=== PATIENT | male | born 1935 | race Caucasian/White ===

== ENCOUNTER 2016-06-09 09:15 | Inpatient (IN) | payer OTHER ==
[~2016-06-09] VITALS: Ht 180.3 cm; Wt 70.2 kg
[~2016-06-09 09:15] MED LIST: ACET500C5 PO; ADV25050 INH; ALBU8.5H3 IH; FER325 PO; FLUT16SP17 NASAL; FURO20TA3 PO; IPRA3AMP HHN; LEVO150T67 PO; PANT40TA4 PO; TRIA1CAP PO
[2016-06-09] MEDS ORDERED: SODIUM CHLORIDE 0.9% 1L BAG IV* STA (09:25)
[2016-06-09] MEDS ORDERED: CEFEPIME 2GM/50 ML (PMX) 50 ML IVPB STA (09:25)
[2016-06-09] MEDS ORDERED: ACETAMINOPHEN 325 MG TAB PO STA (09:25)
[2016-06-09] MEDS ORDERED: VANCOMYCIN 1 GM (PMX) 250 ML IVPB ONE (09:30)
[2016-06-09 10:10] LABS: BASOPHIL # 0.1 10^3/ul (0.0-0.1); EOSINOPHILS % 0.1 % (0.0-7.0); HEMATOCRIT 34.3 % (42.0-52.0); HEMOGLOBIN 10.8 g/dl (14.0-18.0); LYMPHOCYTES # 1.9 10^3/ul (0.8-2.9); LYMPHOCYTES % 20.7 % (15.0-51.0); MEAN CORPUSCULAR HEMOGLOBIN 25.9 pg (29.0-33.0); MEAN CORPUSCULAR HGB CONC 31.5 g/dl (32.0-37.0); MEAN CORPUSCULAR VOLUME 82.3 fl (82.0-101.0); MEAN PLATELET VOLUME 10.9 fl (7.4-10.4); MONOCYTE # 1.4 10^3/ul (0.3-0.9); MONOCYTES % 15.8 % (0.0-11.0); NEUTROPHIL # 5.6 10^3/ul (1.6-7.5); NEUTROPHILS % 62.4 % (39.0-77.0); PLATELET COUNT 75 10^3/UL (140-440); RED BLOOD COUNT 4.17 10^6/ul (4.70-6.10); RED CELL DISTRIBUTION WIDTH 18.6 % (11.5-14.5)
[2016-06-09] MEDS ORDERED: ALBU8.5H3 INH (10:10)
[2016-06-09 10:13] LABS: CONDITION 1; LH ANALYZER COMMENTS 1; SUSPECT 1
[2016-06-09 10:14] LABS: INR 1.24; PROTIME 15.7 Sec (12.2-14.2); PT RATIO 1.2
[2016-06-09 10:15] LABS: PARTIAL THROMBOPLASTIN TIME 32.7 Sec (25.0-35.0)
[2016-06-09 10:17] LABS: ALBUMIN 3.7 g/dl (3.3-4.9); POTASSIUM 5.3 mmol/L (3.5-5.1)
[2016-06-09 10:19] LABS: BILIRUBIN,INDIRECT 0.6 mg/dl (0-1.1); BILIRUBIN,TOTAL 0.6 mg/dl (0.2-1.3); CREATININE 0.69 mg/dl (0.61-1.24)
[2016-06-09 10:20] LABS: ALBUMIN/GLOBULIN RATIO 0.66; CALCIUM 8.5 mg/dl (8.4-10.2); TOTAL PROTEIN 9.3 g/dl (6.1-8.1)
--- NOTE | 2016-06-09 10:25 | RADRPT ---
PROCEDURE: XR Chest. CLINICAL INDICATION: Chest pain TECHNIQUE: Single frontal view of the chest. COMPARISON: 10/17/2015 chest radiograph. FINDINGS: Peripheral predominant coarse interstitial opacities compatible with pulmonary fibrosis appear mildl y increased. Mildly increased infiltration in the left infrahilar region may represent superimposed pneumonia. No pleural effusion or pneumothorax. The cardiomediastinal silhouette is unremarkable. No acute osseous abnormalities. Vascular calcifications of the aorta are present compatible with atherosclerosis. IMPRESSION: Findings of pulmonary fibrosis are mildly increased. Mildly increased left infrahilar infiltration may be secondary to pneumonia or aspiration. RPTAT: AADD .Edouard Manzanares MD, MD Date Time Electronically viewed and signed by .Edouard Manzanares MD, on 06/09/2016 10:24 .B/
[2016-06-09 10:30] LABS: TROPONIN-I 0.024 ng/ml (0.00-0.12)
[2016-06-09 11:12] LABS: ADD UMIC YES; URINE BILIRUBIN (Dip) NEGATIVE (NEGATIVE); URINE BLOOD (Dip) TRACE (NEGATIVE); URINE COLOR YELLOW (YELLOW); URINE GLUCOSE (Dip) NEGATIVE (NEGATIVE); URINE KETONES (Dip) NEGATIVE (NEGATIVE); URINE LEUKOCYTE ESTERASE (Dip) NEGATIVE (NEGATIVE); URINE NITRITE (Dip) NEGATIVE (NEGATIVE); URINE TOTAL PROTEIN (Dip) TRACE (NEGATIVE); URINE UROBILINOGEN (Dip) 2.0 E.U./dL (0.1-1.0)
[2016-06-09 11:20] LABS: URINE RBCS 0-2 /HPF (0)
[2016-06-09] MEDS ORDERED: ACETAMINOPHEN 325 MG TAB PO PRN ×2 (13:00→14:30)
[2016-06-09] MEDS ORDERED: ONDANSETRON 4 MG INJ IV PRN ×2 (13:00→14:30)
--- NOTE | 2016-06-09 13:39 | ERA ---
ER Documentation Chief Complaint Date/Time DATE: 06/09/16 TIME: 13:36 Chief Complaint flu like symptoms x 8 days HPI Patient is an 80-year-old male with COPD on home oxygen who presents with sore throat and cough. He has productive phlegm with his cough as well. He has had 8 days of sore throat for 2 days of cough. He has had no antibiotics as of yet. His primary doctor is Dr. Tremayne Alejandro. The symptoms are constant. ROS All systems reviewed and are negative except as per history of present illness. Medications Home Meds Active Scripts Acetaminophen* (Tylophen*) 500 Mg Capsule, 1 CAP PO Q6H Y for PAIN AND OR ELEVATED TEMP, #20 CAP Prov:CLARITA FUENTES DO 01/14/16 Pantoprazole* (Pantoprazole*) 40 Mg Tablet.dr, 40 MG PO DAILY@06 for 30 Days, 3 Refills Prov:JUANITA KULKARNI 10/19/15 Salmeterol Xinaf/Fluticasone* (Advair*) 250-50 Diskus Inhaler, 1 INH INH BID, # 1 3 Refills Prov:JUANITA KULKARNI 10/19/15 Ipratropium-Albuterol (Ipratropium-Albuterol) 0.5-3 Mg/3 Ml Ampul.neb, 3 ML HHN Q8H RESP THERAPY for 30 Days Prov:JUANITA KULKARNI 10/19/15 Reported Medications Albuterol Sulfate* (Proair HFA*) 8.5 Gm Hfa.aer.ad, 2 PUFF INH Q4H Y for WHEEZING AND SOB, #1 INHALER 06/09/16 Fluticasone Propionate* (Fluticasone Propionate* Nasal) 50 Mcg/[place] - 16 Gm [place].susp, 1 SPRAY NASAL DAILY Y for PRN, #1 BOTTLE TO EACH NOSTRIL 01/14/16 Furosemide* (Furosemide*) 20 Mg Tablet, 20 MG PO DAILY, #60 TAB 01/14/16 Triamterene-HCTZ* (Triamterene-HCTZ*) 37.5 - 25 Mg Capsule, 1 CAP PO DAILY, CAP 01/14/16 Levothyroxine Sodium* (Levothyroxine Sodium*) 150 Mcg Tablet, 150 MCG PO BEFORE BREAKFAST, #30 TAB 01/14/16 Discontinued Reported Medications Ferrous Sulfate* (Ferrous Sulfate*) 325 Mg Tabec, 325 MG PO BID, TAB 01/14/16 Allergies Allergies: Coded Allergies: No Known Allergy (Verified , 06/09/16) PMhx/Soc History of Surgery: No Anesthesia Reaction: No Hx 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 Disorder: No Hx Respiratory Disorders: Yes (asthma, copd, THROID PROBLEMS) Hx Cardiac Disorders: No Hx Psychiatric Problems: No Hx Miscellaneous Medical Probl: No Hx Alcohol Use: No Hx Substance Use: No Hx Tobacco Use: No Smoking Status: Never smoker FmHx Family History: diabetes Physical Exam Vitals Vital Signs Date Time Temp Pulse Resp B/P Pulse Ox O2 Delivery O2 Flow Rate FiO2 06/09/16 12:52 80 17 98/64 100 Mask 5.0 06/09/16 10:00 84 19 102/65 100 Non Rebreather 10.0 06/09/16 09:30 Nasal Cannula 3 06/09/16 09:22 101.2 106 24 89/55 63 Physical Exam Const: Moderate distress secondary to shortness of breath Head: Atraumatic Eyes: Normal Conjunctiva ENT: Normal External Ears, Nose and Mouth. Neck: Full range of motion..~ No meningismus. Resp: Decreased breath sounds bilaterally Cardio: Regular rate and rhythm, no murmurs Abd: Soft, non tender, non distended. Normal bowel sounds Skin: Pale Back: No midline or flank tenderness Ext: No cyanosis, or edema Neur: Awake and alert Psych: Normal Mood and Affect Result Diagram: 06/09/16 0945 06/09/16 0945 Results 24 hrs Laboratory Tests Test 06/09/16 09:45 06/09/16 11:00 06/09/16 11:25 Activated Partial Thromboplast Time 32.7Sec Alanine Aminotransferase (ALT/SGPT) 13IU/L Albumin 3.7g/dl Albumin/Globulin Ratio 0.66 Alkaline Phosphatase 148IU/L Anion Gap 14 Aspartate Amino Transf (AST/SGOT) 27IU/L Basophils # 0.110^3/ul Basophils % 1.0% Blood Morphology Comment Blood Urea Nitrogen 13mg/dl Calcium Level 8.5mg/dl Carbon Dioxide Level 37mmol/L Chloride Level 89mmol/L Creatinine 0.69mg/dl Direct Bilirubin 0.00mg/dl Eosinophils # 0.010^3/ul Eosinophils % 0.1% Globulin 5.60g/dl Glucose Level 103mg/dl Hematocrit 34.3% Hemoglobin 10.8g/dl INR International Normalized Ratio 1.24 Indirect Bilirubin 0.6mg/dl Lactic Acid Level 1.6mmol/L 0.6mmol/L Lymphocytes # 1.910^3/ul Lymphocytes % 20.7% Mean Corpuscular Hemoglobin 25.9pg Mean Corpuscular Hemoglobin Concent 31.5g/dl Mean Corpuscular Volume 82.3fl Mean Platelet Volume 10.9fl Monocytes # 1.410^3/ul Monocytes % 15.8% Neutrophils # 5.610^3/ul Neutrophils % 62.4% Nucleated Red Blood Cells # 0.010^3/ul Nucleated Red Blood Cells % 0.0/100WBC Platelet Count 7510^3/UL Potassium Level 5.3mmol/L Prothrombin Time 15.7Sec Prothrombin Time Ratio 1.2 Red Blood Count 4.1710^6/ul Red Cell Distribution Width 18.6% Sodium Level 135mmol/L Total Bilirubin 0.6mg/dl Total Protein 9.3g/dl Troponin I 0.024ng/ml White Blood Count 9.010^3/ul Urine Bilirubin NEGATIVE Urine Clarity CLEAR Urine Color YELLOW Urine Glucose NEGATIVE% Urine Hemoglobin TRACE Urine Ketones NEGATIVE Urine Leukocyte Esterase NEGATIVE Urine Microscopic RBC 0-2/HPF Urine Microscopic WBC NONE SEEN/HPF Urine Nitrite NEGATIVE Urine Specific [place] 1.015 Urine Total Protein TRACE Urine Urobilinogen 2.0 E.U./dL Urine pH 7.0 Current Medications Medications (Trade) Dose Ordered Sig/Jose Daniel Route PRN Reason Start Time Stop Time Status Last Admin Dose Admin Sodium Chloride (NS) 2,170 ml BOLUS OVER 2 HOURS STAT IV* 06/09/16 09:25 06/09/16 09:27 DC 06/09/16 10:01 Acetaminophen 650 mg 650 mg ONCE STAT PO 06/09/16 09:25 06/09/16 09:27 DC 06/09/16 10:10 Cefepime HCl 50 ml @ 100 mls/hr ONCE STAT IVPB 06/09/16 09:25 06/09/16 09:54 DC 06/09/16 10:00 Vancomycin HCl (Vancocin) 250 ml @ 125 mls/hr ONCE ONCE IVPB 06/09/16 09:30 06/09/16 11:29 DC 06/09/16 10:37 Ondansetron HCl (Zofran Inj) 4 mg BRIDGE ORDER PRN IV NAUSEA AND/OR VOMITING 06/09/16 13:00 06/10/16 12:59 Acetaminophen (Tylenol Tab) 650 mg ER BRIDGE PRN PO MILD PAIN/FEVER 06/09/16 13:00 06/10/16 12:59 Procedures/MDM Chest x-ray shows pneumonia per radiology. CT scan of the abdomen and pelvis is pending at this time. EKG read by me: Rate/Rhythm: Regular rate and rhythm at a rate of 90 Intervals: Normal Impression: Flipped T waves Admit MDM: Patient's infectious symptoms have not stabilized and the patient is at risk of rapid decompensation. The patient will be admitted for careful hydration, antibiotic therapy, and infectious source control. Severe Sepsis criteria: Infectious source: Pneumonia End organ damage indicated by: Hypoxia Sepsis Management: Time of recognition of sepsis: Upon arrival Within 3 hours of recognition: Blood cultures x 2 before broad-spectrum antibiotics: Yes 30 ml/kg NS bolus Completed Initial lactate 1.6 Repeat lactate 0.6 Time of recognition of septic shock: No septic shock Septic Shock Assessment: Any lactic acid > 4.0 No Persistent hypotension (SBP < 90 or 40 mmHg drop, MAP < 65) despite 30 mL/kg IV fluid bolus No Volume Re-assessment for Septic Shock (post 30 ml/kg bolus): No signs of septic shock at this time Persistent Hypotension Treatment: Comfort care No Central line Not Required Vasopressor started Not required I considered further perfusion assessment with CVP measurement, SCVO2, bedside ultrasound volume assessment, passive leg raise, trial of further fluid bolus. And proceeded with 30 ml/kg fluid bolus of NSS, broad spectrum antibiotics, and admission. Accepting Care Team Current data and ongoing care discussed. Admitting Physician: Dr. Kulkarni as the patient has regal social insurance adviser(s): None Outstanding Data: Culture results Critical Care: Critical care time 35 minutes excluding all billable procedures Emergent fluid management while maintaining close respiratory support. Provision of immediate and broad-spectrum antibiotic therapy. Simultaneous assessment for possible sources in order to direct targeted therapy. Consideration for invasive and chemical support to prevent cardiopulmonary collapse. Departure Diagnosis: Primary Impression: Severe sepsis Additional Impressions: Shortness of breath Pneumonia Qualified Code: J18.9 - Pneumonia of left lower lobe due to infectious organism Condition: Fair OSTICK,CALDERON MD Jun 09, 2016 13:38
--- NOTE | 2016-06-09 14:02 | RADRPT ---
PROCEDURE: CT Abdomen and Pelvis without contrast. CLINICAL INDICATION: Abdominal pain. TECHNIQUE: Multiple contiguous axial CT images of the abdomen and pelvis were obtained without the administration of intravenous contrast. Coronal and sagittal reconstructions were also performed. CTDIvol (mGy): 11.75; Total Exam DLP (mGy-cm): 762.78. One or more of the following dose reduction techniques were utilized: - Automated exposure control. - Adjustment of the mA and/or kV according to patient size. - Use of iterative reconstruction technique. COMPARISON: Chest x-ray 06/09/2016. CTA chest 10/17/2015. FINDINGS: Limited imaging of the lower thorax demonstrates extensive pulmonary fibrosis, which is grossly unch anged. The heart is enlarged. The liver and spleen are homogeneous in density. The gallbladder, pancreas and adrenal glands are u nremarkable. The kidneys are symmetric in size. There are no nephroureteral stones. There is no hydronephrosis o r abnormal perinephric inflammation. Scattered few small simple renal cysts are present. The abdominal aorta is normal in caliber. Atherosclerotic calcification is present. There is no per iaortic / retroperitoneal lymphadenopathy. The stomach and small and large intestines are unremarkable. The appendix is not visualized. There are no focal inflammatory changes of the mesentery. There is no mesenteric lymphadenopathy. There is no ascites. The bladder is partially distended and normal in contour. The prostate gland is enlarged measuring approximately 5.0 x 4.2 x 4.5 cm yielding a volume of 49 cc. The seminal vesicles are unremarkable. There is no free pelvic fluid. There is no pelvic sidewall or inguinal lymphadenopathy. There is a small fat containing left inguinal hernia. Multilevel degenerative disk disease is seen throughout the spine. Mild diffuse subcutaneous edema is observed. IMPRESSION: No evidence of abdominopelvic mass, lymphadenopathy or focal acute inflammatory pathology. Extensive basilar pulmonary fibrosis, unchanged. Cardiomegaly. RPTAT: HLST .Lorraine Siu MD, MD Date Time Electronically viewed and signed by .Lorraine Siu MD, on 06/09/2016 14:02 .T/
[2016-06-09] MEDS ORDERED: DOCUSATE SODIUM 100 MG CAP PO PRN (14:30)
[2016-06-09] MEDS ORDERED: BISACODYL 10 MG SUPP PR PRN (14:30)
[2016-06-09] MEDS ORDERED: ALBUTEROL/IPRATROPIUM (NEB) 3 ML AMP HHN PRN (14:30)
[2016-06-09] MEDS ORDERED: MAGNESIUM HYDROXIDE 30ML CUP PO PRN (14:30)
[2016-06-09] MEDS ORDERED: NACL 0.9% 3 ML SYG IV SCH (14:30)
[2016-06-09] MEDS: LEVOFLOXACIN 750MG/D5W (PMX) 150 ML IVPB SCH (16:06)
--- NOTE | 2016-06-09 16:11 | HP ---
DATE OF ADMISSION: 06/09/2016 CHIEF COMPLAINT ON ADMISSION: Shortness of breath, cough and postnasal drip. HISTORY OF PRESENT ILLNESS: This is an 80-year-old male with a diagnosis of moderate pulmonary fibr osis almost a year ago, now on 2 liters nasal cannula at home, also with hypertension and hypothyroi dism who presented to the emergency department with complaint of increasing cough with increasing am ount of white phlegm for the past 2 days. It is worse at night. He cannot really lie on his back, h e has to lie on the side. He denies any chest pressure or chest pain. He denies any abdominal pain . He usually ambulates without any assistive devices and he is on his 2 liters nasal cannula. He d id not increase his O2 at home, but did come to the ER today, was found to be hypoxemic in the 60s o n room air. He was also febrile here to 101.2. He denies any fevers at home. Blood pressure is in the upper 80s, low 90s systolic over 56. He is, however, feeling better currently and mental statu s is stable. He does have 1 sick contact, his herself had a URI, or at least URI symptoms. He was also noted to have left eye discharge upon waking up in the morning and some swelling around th e left eye for the past few days. He has a right glass eye, by the way. He is feeling better curren tly. He is on face mask, respiratory stable. He is being admitted to a telemetry bed for close sheridan toring. ALLERGIES: NO KNOWN ALLERGIES. PAST MEDICAL HISTORY: 1. Moderate pulmonary fibrosis. 2. 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 3. Hypothyroidism. 4. Hypertension. 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 REVIEW OF SYSTEMS: As per HPI. The patient denies any neurological deficit. No gastrointestinal o r genitourinary complaints. SOCIAL HISTORY: The patient lives with his . He does not smoke or drink alcohol. OUTPATIENT MEDICATIONS: Include: 1. Albuterol, ProAir HFA 2 puffs inhaled every 4 hours as needed for wheezing or shortness of breat h. 2. DuoNeb q.8h. 3. Tylenol 500 mg 1 tab p.o. q. 6 hours p.r.n. 4. Lasix 20 mg p.o. daily. 5. Triamterene hydrochlorothiazide 37.5/25 one tab p.o. daily. 6. Advair 250/50 1 puff inhaled twice daily. 7. Fluticasone 1 spray nasally as needed to each nostril. 8. Protonix 40 mg p.o. daily. 9. Levothyroxine 150 mcg p.o. q.a.m. PHYSICAL EXAMINATION: VITAL SIGNS: Temperature 101.2 on arrival today, repeat temperature pending. Blood pressure 89/56, heart rate of 74. Patient is 100% on 5 liters face mask. GENERAL: He is alert and oriented x4. He is in no acute distress currently. He feels more comforta ble. HEART: Regular rate and rhythm. No murmur, rubs, or gallops. LUNGS: He does have decreased breath sounds at the bases. There is no expiratory wheezes, rales or crackles heard. EXTREMITIES: He does have +2 edema lower extremity pedal area, which according to the patient is ba seline. NEUROLOGIC: Grossly intact. LABORATORY DATA: White blood cell count is 9.0, hemoglobin 10.8, hematocrit 34.3, platelet count of 75. Chemistry with a sodium of 135, potassium 5.3, chloride 89, bicarbonate 27, BUN 13, creatinine 0.69, glucose of 103, calcium 8.5. Troponin 0.024. INR 1.24. PT 15.7, PTT 32.7. Liver function testing is within normal except for alkaline phosphatase of 148. Lactate is at 0.6, calcium 8.5. EKG shows sinus rhythm with some PACs at 90 beats per minute. RADIOLOGICAL DATA: 1. Chest x-ray shows findings of pulmonary fibrosis which are mildly increased and mildly increased left infrahilar infiltration that may be secondary to pneumonia or aspiration. 2. CAT scan of the abdomen and pelvis without contrast shows no evidence of abdominopelvic mass, ly mphadenopathy or focal acute inflammatory pathology, extensive basilar pulmonary fibrosis unchanged and cardiomegaly is noted. Of note, the patient did have a 2-D echocardiogram approximately 7 months ago with an EF of 60%. ASSESSMENT AND PLAN: This is an 80-year-old male with: 1. Upper respiratory infection, likely also bronchopneumonia at this point in setting of chronic pu lmonary fibrosis, which may have been exacerbated slightly with this episode of URI. Patient did brown ve a fever here, he is on IV antibiotics, will switch him to Levaquin since it seems to be community acquired. Continue nebulizer treatment and oxygen support. Continue Advair for now. He will be mo nitored on telemetry due to the episode of hypotension here. 2. Hypotension, status post IV fluids given. We will hold off the diuretics, that stockings will be ordered and will monitor the patient on telemetry. Once his blood pressure allows it will restart him on his Lasix. 3. Hypothyroidism. Check thyroid function testing and continue Synthroid. 4. Left eye allergic versus bacterial versus viral conjunctivitis. I will order eyedrops for him an d local hygiene. 5. Prophylaxis. Lovenox for DVT prophylaxis and Proton pump inhibitors for GI prophylaxis. DISPOSITION: Patient is admitted to telemetry. Dictated By: JUANITA CRAIN/SHARON Conf#: [id number] DID#: [id number]
[2016-06-09] MEDS: ALBUTEROL/IPRATROPIUM (NEB) 3 ML AMP HHN SCH ×2 (16:21→20:56)
[2016-06-09] MEDS: CIPROFLOXACIN 0.3% 2.5 ML OPH LEFT EYE SCH ×2 (17:00→23:09)
[2016-06-09 18:11] VITALS: BP 99/64; PULSE 77; RESP 20; Ht 180.3 cm; Wt 70.2 kg
[2016-06-09 18:25] VITALS: PULSE 79
[2016-06-09 20:16] VITALS: BP 102/51; PULSE 106; RESP 20
[2016-06-09 20:29] LABS: POTASSIUM 4.9 mmol/L (3.5-5.1)
[2016-06-09 20:31] LABS: CREATININE 0.66 mg/dl (0.61-1.24)
[2016-06-09 20:32] LABS: CALCIUM 8.4 mg/dl (8.4-10.2)
[2016-06-09 20:39] LABS: CK-MB 2.29 ng/ml (0.0-2.4)
[2016-06-09 20:41] LABS: TROPONIN-I 0.011 ng/ml (0.00-0.12)
[2016-06-09 22:47] VITALS: BP 99/63; RESP 20
[2016-06-09] MEDS: SALMETEROL/FLUTICASONE 250/50 INHA INH SCH (23:09)
[2016-06-10] VITALS (8 sets, daily range): BP systolic 113–115; BP diastolic 62–65; PULSE 86–102; RESP 18
[2016-06-10] MEDS: CIPROFLOXACIN 0.3% 2.5 ML OPH LEFT EYE SCH ×5 (01:28→17:13)
[2016-06-10] MEDS: ALBUTEROL/IPRATROPIUM (NEB) 3 ML AMP HHN SCH ×3 (01:43→13:27)
[2016-06-10] MEDS ORDERED: PANTOPRAZOLE (EC) 40 MG TAB PO SCH (06:00)
[2016-06-10 06:14] LABS: POTASSIUM 4.4 mmol/L (3.5-5.1)
[2016-06-10 06:16] LABS: CREATININE 0.76 mg/dl (0.61-1.24)
[2016-06-10 06:17] LABS: BASOPHILS % 0.1 % (0.0-2.0); CALCIUM 7.7 mg/dl (8.4-10.2); HEMATOCRIT 29.9 % (42.0-52.0); HEMOGLOBIN 9.5 g/dl (14.0-18.0); LYMPHOCYTES # 0.8 10^3/ul (0.8-2.9); LYMPHOCYTES % 16.7 % (15.0-51.0); MAGNESIUM 1.8 mg/dl (1.7-2.5); MEAN CORPUSCULAR HEMOGLOBIN 26.5 pg (29.0-33.0); MEAN CORPUSCULAR HGB CONC 31.9 g/dl (32.0-37.0); MEAN CORPUSCULAR VOLUME 83.1 fl (82.0-101.0); MEAN PLATELET VOLUME 11.7 fl (7.4-10.4); MONOCYTE # 0.8 10^3/ul (0.3-0.9); MONOCYTES % 16.2 % (0.0-11.0); NEUTROPHIL # 3.2 10^3/ul (1.6-7.5); PLATELET COUNT 55 10^3/UL (140-440); RED CELL DISTRIBUTION WIDTH 18.5 % (11.5-14.5); UNCORRECTED WBC 4.8 10^3/ul (4.8-10.8); WHITE BLOOD COUNT 4.8 10^3/ul (4.8-10.8)
[2016-06-10 06:21] LABS: CONDITION 1
[2016-06-10 06:22] LABS: LH ANALYZER COMMENTS 1
[2016-06-10 06:41] LABS: THYROID STIMULATING HORMONE 0.238 MIU/L (0.465-4.680)
[2016-06-10] MEDS ORDERED: LEVOTHYROXINE 150 MCG TAB PO SCH (07:00)
[2016-06-10] MEDS ORDERED: ENOXAPARIN 40 MG/0.4 ML SYG SC SCH (09:00)
[2016-06-10] MEDS ORDERED: INFLUENZA VIRUS VACCINE 0.5 ML (DISPENSING) IM* ONE (09:00)
[2016-06-10] MEDS: SALMETEROL/FLUTICASONE 250/50 INHA INH SCH (09:01)
--- NOTE | 2016-06-10 14:28 | PN ---
Date/Time of Note Date/Time of Note DATE: 06/10/16 TIME: 14:26 Assessment/Plan VTE Prophylaxis VTE Prophylaxis Intervention: LMWH Lines/Catheters IV C[facility] Type [facility] Saline Lock Urinary Cath still in place: No Assessment/Plan Assessment/Plan 80-year-old male with: 1. Upper respiratory infection, likely also bronchopneumonia at this point in setting of chronic pulmonary fibrosis, which may have been exacerbated slightly with this episode of URI. Afebrile back to baseline O2 requirement D/c home on Levaquin x 5 days (total of 7 days rx) Continue nebulizer treatment and oxygen at home. Continue Advair for now. 2. Hypotension, resolved. Resume Lasix at home. 3. Hypothyroidism. Continue Synthroid. 4. Left eye allergic versus bacterial versus viral conjunctivitis. Local hygiene and eye drops. Prophylaxis. Lovenox for DVT prophylaxis and Proton pump inhibitors for GI prophylaxis. Disposition: D/c home and f/u with PCP within 1 week Subjective 24 Hr Interval Summary Free Text/Dictation Patient doing well today, respiratory status back to baseline Afebrile x 24 hrs and blood cx negative D/c home with PCP follow up in 1 week Exam/Review of Systems Vital Signs Vitals Vital Signs Date Time Temp Pulse Resp B/P Pulse Ox O2 Delivery O2 Flow Rate FiO2 06/10/16 13:31 93 2.0 06/10/16 13:30 104 23 Nasal Cannula 06/10/16 06:59 98.0 115/62 06/10/16 01:44 28 Intake and Output 06/09/16 06/09/16 06/10/16 15:00 23:00 07:00 Intake Total 2220 ml 250 ml Balance 2220 ml 250 ml Exam Constitutional: alert, oriented, well developed Respiratory: clear to auscultation, normal air movement Cardiovascular: nl pulses, regular rate and rhythm Gastrointestinal: non-tender, soft Musculoskeletal: nl extremities to inspection Extremities: normal pulses, other (no edema, clubbing or cyanosis ) 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: VOCATIONAL AIDE II-XII intact, nl mental status, nl speech, nl strength (at baseline ) Results Result Diagram: 06/10/16 0525 06/10/16 0525 Results 24 hrs Laboratory Tests Test 06/09/16 19:45 06/10/16 05:25 Anion Gap 14 11 B-Type Natriuretic Peptide 6050 H Blood Urea Nitrogen 13 14 Calcium Level 8.4 7.7 L Carbon Dioxide Level 35 H 35 H Chloride Level 95 L 93 L Creatine Kinase 48 Creatine Kinase Index 4.8 Creatinine 0.66 0.76 Creatinine Kinase MB (Mass) 2.29 Glucose Level 94 123 Lactic Acid Level 1.8 Potassium Level 4.9 4.4 Sodium Level 139 135 Troponin I 0.011 Basophils # 0.0 Basophils % 0.1 Blood Morphology Comment Eosinophils # 0.0 Eosinophils % 0.0 Free Thyroxine 1.59 Hematocrit 29.9 L Hemoglobin 9.5 L Lymphocytes # 0.8 Lymphocytes % 16.7 Magnesium Level 1.8 Mean Corpuscular Hemoglobin 26.5 L Mean Corpuscular Hemoglobin Concent 31.9 L Mean Corpuscular Volume 83.1 Mean Platelet Volume 11.7 H Monocytes # 0.8 Monocytes % 16.2 H Neutrophils # 3.2 Neutrophils % 67.0 Nucleated Red Blood Cells # 0.0 Nucleated Red Blood Cells % 0.0 Platelet Count 55 #L Red Blood Count 3.60 L Red Cell Distribution Width 18.5 H Thyroid Stimulating Hormone (TSH) 0.238 L White Blood Count 4.8 # Medications Medications Current Medications Pantoprazole (Protonix Tab) 40 mg DAILY@06 PO Last administered on 06/10/16 06: 51; Admin Dose 40 MG; Start 06/10/16 at 06:00 Salmeterol Xinafoate/ Fluticasone 1 inh 1 inh BID INH Last administered on 09:01; Admin Dose 1 INH; Start 06/09/16 at 21:00 Levofloxacin/ Dextrose (Levaquin 750 Mg/ D5W 150 ml (Pmx)) 150 ml @ 100 mls/hr Q24H IVPB Last administered on 06/09/16 16:06; Admin Dose 100 MLS/HR; Start 06/09/16 at 14:30 Ondansetron HCl (Zofran Inj) 4 mg Q6H PRN IV NAUSEA AND/OR VOMITING; Start 06/09 at 14:30 Acetaminophen (Tylenol Tab) 650 mg Q6H PRN PO PAIN LEVEL 1-3 OR FEVER; Start at 14:30 Docusate Sodium (Colace) 100 mg Q12H PRN PO CONSTIPATION; Start 06/09/16 at 14: 30 Magnesium Hydroxide (Milk Of Mag) 30 ml DAILY PRN PO CONSTIPATION; Start at 14:30 Bisacodyl (Dulcolax Supp) 10 mg DAILY PRN [place] CONSTIPATION; Start 06/09/16 at 14: 30 Enoxaparin Sodium (Lovenox) 40 mg DAILY SC Last administered on 06/10/16 09:10 ; Admin Dose 40 MG; Start 06/10/16 at 09:00 Ciprofloxacin HCl (Ciloxan 0.3% Oph) 2 drop Q4 LEFT EYE Last administered on 09:01; Admin Dose 2 DROP; Start 06/09/16 at 17:00; Stop 06/14/16 at 13:01 JUANITA RONQUILLO Jun 10, 2016 14:28
--- NOTE | 2016-06-10 14:45 | PDOCDIS ---
Discharge Instructions CONDITION Patient Condition: Stable HOME CARE INSTRUCTIONS: Special Diet: regular ACTIVITY: Activity Restrictions: Slowly Increase Activity FOLLOW UP/APPOINTMENTS Appointments follow up with PCP within 1 week JUANITA RONQUILLO Jun 10, 2016 14:45
[2016-06-10] MEDS ORDERED: CIPR2.5D11 LEFT EYE (14:46)
[2016-06-10] MEDS ORDERED: LEVO750T25 PO (14:46)
[2016-06-10] MEDS: LEVOFLOXACIN 750MG/D5W (PMX) 150 ML IVPB SCH (14:50)
--- NOTE | 2016-06-11 13:02 | DS ---
DATE OF ADMISSION: 06/09/2016 DATE OF DISCHARGE: 06/10/2016 PRIMARY CARE PHYSICIAN: Dr. Alejandro. CHIEF COMPLAINT ON ADMISSION: Shortness of breath, cough and postnasal drip. BRIEF HISTORY OF PRESENT ILLNESS: This is an 80-year-old male with moderate pulmonary fibrosis, cur rently on 2 liters nasal cannula at home, also hypertension, hypothyroidism [facility] of increased cough with increased amount of white phlegm for 2 days , worse at night. In the ER, he was noted to have a fever to 101.2. Patient was in severe respirat ory distress upon arrival requiring a face mask. He was admitted to telemetry as his systolic blood pressures were in the 90s. HOSPITAL COURSE: The patient was admitted to telemetry. He did stabilize overnight. He remained a febrile for 24 hours. His symptoms were more consistent with bronchopneumonia. His chest x-ray cox s not show any infiltrates. He is now on 2 to 3 liters nasal cannula, afebrile, doing well on Levaq uin with improved cough. After discussion, he would rather be home. He is stable close to his base line on appropriate regimen with Levaquin that could be converted to oral. Therefore, the patient w ill be discharged home today. He is to follow up with his primary care physician. On this admissio n, he was noted to have left eye conjunctivitis for which he has been getting Cipro eyedrops and has also improved overnight. DISPOSITION: Discharge home. DISCHARGE CONDITION: Stable. DISCHARGE DIET: Low sodium diet. DISCHARGE ACTIVITY: Resume home activity as tolerated with home O2. FOLLOWUP: The patient is to follow with his primary care physician within 1 week. DISCHARGE DIAGNOSES 1. Upper respiratory infection, likely bronchitis versus bronchopneumonia. 2. Hypotension, resolved. 3. Hypothyroidism. 4. Left eye allergic versus bacterial conjunctivitis, improving. DISCHARGE MEDICATIONS 1. Ciprofloxacin eyedrops 2 drops q.4h. for 5 days. 2. Levaquin 750 mg p.o. daily for 5 more days, total of 7 days' treatment. 3. Tylenol as needed. 4. Albuterol inhaler 2 puffs inhaled q.4h. p.r.n. wheezing. 5. Flonase 1 spray nasally daily as needed. 6. Furosemide 20 mg daily. 7. DuoNebs q.8h. 8. Levothyroxine 150 mcg daily. 9. Protonix 40 mg daily. 10. Advair 250/50, one puff inhaled b.i.d. Discontinued medication includes triamterene/hydrochlorothiazide. Dictated By: JUANITA CRAIN/SHARON Conf#: [id number] DID#: [id number]
== END 2016-06-10 18:05 | disposition home or self-care (01) | DRG 195 ==
LOC: E/R 09:15 → TEL 12:45 → E/R 12:45 → TEL 16:53
PROVIDERS: ADMIT Internal Medicine; ATTEND Internal Medicine
DX: J18.0 Bronchopneumonia, unspecified organism (principal); I95.9 Hypotension, unspecified; J84.10 Pulmonary fibrosis, unspecified; J44.9 Chronic obstructive pulmonary disease, unspecified; Z99.81 Dependence on supplemental oxygen; J06.9 Acute upper respiratory infection, unspecified; J40 Bronchitis, not specified as acute or chronic; E03.9 Hypothyroidism, unspecified; H10.9 Unspecified conjunctivitis; I10 Essential (primary) hypertension; R09.02 Hypoxemia; Z59.0 Homelessness
CPT/HCPCS: 36415; 71010; 74176; 80048; 80053; 81001; 81003; 82550; 82553; 83605; 83735; 83880; 84439; 84443; 84484; 85025; 85610; 85730; 87040; 87086; 87400; 90686; 93005; 94640; 94664; 94760; 96365; 96366; 96367; 96375; J1650; J1956; J3370; J7030

== ENCOUNTER 2016-07-02 14:51 | Inpatient (IN) | payer OTHER ==
[~2016-07-02] VITALS: Ht 167.6 cm; Wt 81.0 kg
[~2016-07-02 14:51] MED LIST changes: -ALBU8.5H3 IH; +ALBU8.5H3 INH; +CIPR2.5D11 LEFT EYE; -FER325 PO; +LEVO750T25 PO; -TRIA1CAP PO
[2016-07-02] MEDS ORDERED: NITROGLYCERIN 2% 1 GM OINT PKT TD STA (15:36)
[2016-07-02] MEDS ORDERED: IPRATROPIUM (NEB) 0.5 MG/2.5 ML AMP INH STA ×2 (15:36→18:10)
[2016-07-02] MEDS ORDERED: ALBUTEROL 0.5% (NEB) 2.5 MG/0.5 ML AMP INH STA ×2 (15:36→18:10)
[2016-07-02] MEDS ORDERED: METHYLPREDNISOLONE 125 MG INJ IV STA (15:44)
[2016-07-02] MEDS ORDERED: SOD CHLORIDE 0.9% 500 ML IV STA (15:44)
[2016-07-02 15:51] LABS: BASOPHIL # 0.1 10^3/ul (0.0-0.1); BASOPHILS % 0.9 % (0.0-2.0); EOSINOPHILS # 0.1 10^3/ul (0.0-0.5); HEMATOCRIT 29.9 % (42.0-52.0); HEMOGLOBIN 9.6 g/dl (14.0-18.0); LYMPHOCYTES # 2.1 10^3/ul (0.8-2.9); LYMPHOCYTES % 25.4 % (15.0-51.0); MEAN CORPUSCULAR HEMOGLOBIN 26.3 pg (29.0-33.0); MEAN CORPUSCULAR HGB CONC 32.1 g/dl (32.0-37.0); MEAN PLATELET VOLUME 10.4 fl (7.4-10.4); MONOCYTE # 1.1 10^3/ul (0.3-0.9); MONOCYTES % 12.9 % (0.0-11.0); NEUTROPHILS % 59.8 % (39.0-77.0); PLATELET COUNT 116 10^3/UL (140-440); RED BLOOD COUNT 3.65 10^6/ul (4.70-6.10); RED CELL DISTRIBUTION WIDTH 20.8 % (11.5-14.5); UNCORRECTED WBC 8.4 10^3/ul (4.8-10.8); WHITE BLOOD COUNT 8.4 10^3/ul (4.8-10.8)
[2016-07-02] MEDS ORDERED: DOCU-159 PO (16:00)
[2016-07-02] MEDS ORDERED: FER325 PO (16:00)
[2016-07-02] MEDS ORDERED: FUROSEMIDE 40 MG INJ IV ONE ×2 (16:00→18:30)
[2016-07-02] MEDS ORDERED: UMEC62.5 IH (16:01)
[2016-07-02] MEDS ORDERED: HYDR-902 PO (16:01)
[2016-07-02 16:05] LABS: CONDITION 1; LH ANALYZER COMMENTS 1; SUSPECT 1
--- NOTE | 2016-07-02 16:10 | ERA ---
ER Documentation Chief Complaint Date/Time DATE: 07/02/16 TIME: 16:09 Chief Complaint cough since last night with productive sputum. mod sob. no cp HPI This is a 80-year-old Thai-speaking male with a known history of hypertension and pulmonary fibrosis. The patient is on 1.5-2 L home oxygen 24 hours a day. The patient presents to the emergency department today complaining of worsening dyspnea and shortness of breath at rest. He indicates that over the past 24 hours he has had productive sputum which is whitish in color. The patient had similar symptoms and had been admitted to the hospital roughly 3 weeks ago and discharged on June 11, 2016 after being treated for severe sepsis. At that time the patient was febrile. He indicates that since discharge he has not experienced any fever shaking or chills. He is not currently on any antibiotics. He denies any calf tenderness and states he has chronic edema of his bilateral lower extremities which has not worsened. He denies any recent travel. He has no chest pressure that radiates to the neck or back or jaw. He denies any hemoptysis hematemesis or melanotic stools. The patient has a remote history of tobacco but he quit 25 years ago and also indicates he has underlying COPD ROS All systems reviewed and are negative except as per history of present illness. Medications Home Meds Active Scripts Ipratropium-Albuterol (Ipratropium-Albuterol) 0.5-3 Mg/3 Ml Ampul.neb, 3 ML HHN Q8H RESP THERAPY for 30 Days Prov:YGJUANITA F 10/19/15 Reported Medications Umeclidinium [place] (Incruse Ellipta) 62.5 Mcg Blst.w.dev, 62.5 MCG IH BID 07/02/16 Hydrocodone/Acetaminophen ([place] 10-325 Tablet) 1 Each Tablet, 1 EACH PO QHS Y for SEVERE PAIN LEVEL 7-10, TAB 07/02/16 Docusate Sodium* (Docusate Sodium*) 100 Mg Capsule, 100 MG PO DAILY, #30 CAP 07/02/16 Ferrous Sulfate* (Ferrous Sulfate*) 325 Mg Tabec, 325 MG PO DAILY, TAB 07/02/16 Fluticasone Propionate* (Fluticasone Propionate* Nasal) 50 Mcg/[place] - 16 Gm [place].susp, 1 SPRAY NASAL DAILY Y for PRN, #1 BOTTLE TO EACH NOSTRIL 8/11/16 Furosemide* (Furosemide*) 20 Mg Tablet, 20 MG PO DAILY, #60 TAB 01/14/16 Levothyroxine Sodium* (Levothyroxine Sodium*) 150 Mcg Tablet, 150 MCG PO BEFORE BREAKFAST, #30 TAB 01/14/16 Discontinued Reported Medications Albuterol Sulfate* (Proair HFA*) 8.5 Gm Hfa.aer.ad, 2 PUFF INH Q4H Y for WHEEZING AND SOB, #1 INHALER 06/09/16 Discontinued Scripts Levofloxacin* (Levaquin*) 750 Mg Tablet, 750 MG PO DAILY for 5 Days, TAB Prov:JUANITA RONQUILLO 06/10/16 Ciprofloxacin Hcl (Ciprofloxacin Hcl) 2.5 Ml Drops, 2 DROP LEFT EYE Q4 for 5 Days, BOTTLE Prov:JUANITA RONQUILLO 06/10/16 Acetaminophen* (Tylophen*) 500 Mg Capsule, 1 CAP PO Q6H Y for PAIN AND OR ELEVATED TEMP, #20 CAP Prov:CLARITA FUENTES DO 01/14/16 Pantoprazole* (Pantoprazole*) 40 Mg Tablet.dr, 40 MG PO DAILY@06 for 30 Days, 3 Refills Prov:JUANITA RONQUILLO 10/19/15 Salmeterol Xinaf/Fluticasone* (Advair*) 250-50 Diskus Inhaler, 1 INH INH BID, # 1 3 Refills Prov:JUANITA RONQUILLO 10/19/15 Allergies Allergies: Coded Allergies: No Known Allergy (Verified , 07/02/16) PMhx/Soc History of Surgery: No Anesthesia Reaction: No Hx 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 Disorder: No Hx Respiratory Disorders: Yes (PULMONARY FIBROSIS,COPD,) Hx Cardiac Disorders: Yes (HTN) Hx Psychiatric Problems: No Hx Miscellaneous Medical Probl: No Hx Alcohol Use: Yes Hx Substance Use: No Hx Tobacco Use: Yes (QUIT 20 YRS AGO) Smoking Status: Former smoker Physical Exam Vitals Vital Signs Date Time Temp Pulse Resp B/P Pulse Ox O2 Delivery O2 Flow Rate FiO2 07/02/16 16:15 2.0 07/02/16 16:15 99.6 86 22 102/89 100 Nasal Cannula 2.0 07/02/16 16:15 Nasal Cannula 2 07/02/16 15:54 91 20 94 Nasal Cannula 2.0 07/02/16 15:15 97 Nasal Cannula 2.0 07/02/16 14:53 99.6 112 24 112/59 75 Physical Exam Constitutional:Well-developed. Well-nourished. Patient in severe respiratory distress HEENT:Normocephalic. Atraumatic. Left pupil was reactive to light and 2 mm. 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 Neck: No nuchal rigidity. No lymphadenopathy. No posterior cervical spine tenderness or step-offs. Respiratory: Patient using accessory muscles of respiration. Bilateral rhonchi in the lower lung bases. No wheezing on end auscultation. Cardiovascular: Regular rate regular rhythm.No murmurs. No rubs were appreciated.S1, S2 normal. Distal pulses are palpable 2+ bilaterally. GI: Abdomen was soft. Nontender. Non Distended. No pulsatile abdominal masses or bruits. No rebound. No guarding. Bowel sounds were present and normal. Muscle skeletal: Full range of motion of both the upper and lower extremities bilaterally.Normal muscle tone.No assymetrical calf tenderness or swelling. Skin: No petechia, no purpura. No lesions on the palms or the soles of the feet. No maculopapular rash. NEURO: Patient was alert, awake, orientated x3.No facial droop. Gait observed and normal with no ataxia.Speech had regular rate and rhythm. No focal neurological deficits. Result Diagram: 07/02/16 1536 Results 24 hrs Laboratory Tests Test 07/02/16 15:36 07/02/16 16:00 Arterial Blood HCO3 34.7mmol/L Arterial Blood Base Excess 8.7mmol/L Arterial Blood Oxygen Saturation 90.3mmHG Juarez Test N/A Arterial Blood Gas Puncture Site Right Brachial Arterial Blood Carboxyhemoglobin 1.7% Arterial Blood Date Drawn 07/02/2016 4:00:19 PM Arterial Blood Methemoglobin 0.3% Arterial Blood pCO2 (Temp correct) 56.0mmhg Arterial Blood pH (Temp corrected) 7.410 Arterial Blood pO2 (Temp corrected) 59.3mmHG Basophils # 0.110^3/ul Basophils % 0.9% Blood Gas A-a O2 Differential 67.0mmHg Blood Gas Modality NASAL CANNULA Blood Gas Notified Time 07/02/2016 4:11:13 PM Blood Gas [facility] Specimen Source Blood arterial Blood Gas Temperature 37.0C Blood Morphology Comment Eosinophils # 0.110^3/ul Eosinophils % 1.0% FiO2 27.0% Hematocrit 29.9% Hemoglobin 9.6g/dl Lymphocytes # 2.110^3/ul Lymphocytes % 25.4% Mean Corpuscular Hemoglobin 26.3pg Mean Corpuscular Hemoglobin Concent 32.1g/dl Mean Corpuscular Volume 82.0fl Mean Platelet Volume 10.4fl Monocytes # 1.110^3/ul Monocytes % 12.9% Neutrophils # 5.010^3/ul Neutrophils % 59.8% Nucleated Red Blood Cells # 0.010^3/ul Nucleated Red Blood Cells % 0.0/100WBC Oxyhemoglobin Percent 88.5% Platelet Count 72235^3/UL Red Blood Count 3.6510^6/ul Red Cell Distribution Width 20.8% Total Hemoglobin 10.0g/dl Troponin I < 0.012ng/ml White Blood Count 8.410^3/ul B-Type Natriuretic Peptide 6040PG/ML Current Medications Medications (Trade) Dose Ordered Sig/Jose Daniel Route PRN Reason Start Time Stop Time Status Last Admin Dose Admin Albuterol (Proventil 0.5% (Neb)) 10 mg ONCE STAT INH 07/02/16 15:36 07/02/16 15:43 DC 07/02/16 15:53 Ipratropium [place] (Atrovent 0.02% (Neb)) 1 mg ONCE STAT INH 07/02/16 15:36 07/02/16 15:43 DC 07/02/16 15:53 Furosemide (Lasix) 40 mg ONCE ONCE IV 07/02/16 16:00 07/02/16 16:01 Cancel Nitroglycerin (Nitroglycerin 2% Oint) 1 inch ONCE STAT TD 07/02/16 15:36 07/02/16 15:37 Cancel Methylprednisolone Sodium Succinate 125 mg 125 mg ONCE STAT IV 07/02/16 15:44 07/02/16 15:45 DC 07/02/16 16:18 Sodium Chloride 500 ml @ 500 mls/hr Q1H STAT IV 07/02/16 15:44 07/02/16 16:43 DC 07/02/16 16:18 Vancomycin HCl 250 ml @ 125 mls/hr ONCE ONCE IVPB 07/02/16 17:00 07/02/16 18:59 Piperacillin Sod/ Tazobactam Sod (Zosyn 3.375gm/ 100 ml (Pmx)) 100 ml @ 200 mls/hr ONCE STAT IVPB 07/02/16 16:56 07/02/16 17:25 DC 07/02/16 17:30 Procedures/MDM The patient presented to the emergency department with shortness of breath. My differential diagnosis included but was not limited to upper airway obstruction , CHF, pulmonary embolism, cardiac ischemia, pneumonia, pneumothorax, anemia, drug overdose, pulmonary edema, COPD or asthma. This patient was immediately placed in a quality assurance monitor chassis continuous pulse oximetry and placed on supplemental oxygen. When the patient arrived he was severely hypoxic with an oxygen saturation of 79%. However the patient was not on his oxygen when he arrived as his daughter brought him to the hospital and did not come with his oxygen tank. He immediately was placed on 2 L nasal cannula and his pulse ox improved to 94%. He was given nebulizer treatments of continuous albuterol and Atrovent and was also given 125 mg of Solu-Medrol as he does have underlying COPD according to the patient. The patient was afebrile at this time. Arterial blood gas reviewed by myself and indicated hypoxia however the patient pH normal at 7.4 with a bicarb of 34.7 and PCO2 of 56 with PO2 of 59.3. His oxygen saturation was 90.3%. Blood cultures and urine cultures were obtained. A chest radiograph is ordered by myself. Given the severity of the patient's symptoms I did feel he required admission for continuous nebulizer treatment as once he completed the Continuous treatment of bronchodilators his respiratory distress had improved but did not completely resolved. He was no longer using accessory muscles of respiration but was still experiencing dyspnea and had bilateral rhonchi. 12 Lead EKG tracing ordered and reviewed by myself showed: Normal sinus rhythm of 94 bpm and no arrhythmia. TN interval normal. QRS duration normal. No ST segment elevation No ST segment depression. T-wave inversion in the lateral leads V4 V5 V6. I obtained a 1 view chest radiograph that was ordered and reviewed by myself as well as the radiologist and indicated the following: Stable extensive interstitial and alveolar air space disease most compatible with pulmonary edema and CHF. Superimposed infectious process cannot be excluded. Given that I cannot rule out the possibility of pneumonia and the patient's high risk factor for aspiration pneumonia blood cultures were obtained and the patient was started on broad-spectrum antibiotics which included vancomycin and IV Zosyn. The patient did receive IV Lasix and nitroglycerin was held due to mild hypotension to treat the congestive heart failure as the patient's BNP was also elevated. The patient continued to receive further nebulizer treatments and will be admitted in serious condition under the care of Dr. Garner. The patient will go to the telemetry service with an anticipated stay of greater than 2 midnights Departure Diagnosis: Primary Impression: Pulmonary fibrosis Additional Impression: Signs and symptoms of severe respiratory distress Condition: Serious LM DAI Jul 02, 2016 16:10
[2016-07-02 16:11] LABS: Arterial Base Excess 8.7 mmol/L (-3.0-3); Arterial COHb 1.7 % (0.0-3.0); Arterial Fraction of Oxyhgb 88.5 % (93.0-99.0); Arterial HCO3 34.7 mmol/L (22.0-26.0); Arterial MetHb 0.3 % (0.0-1.5); MODE NASAL CANNULA
[2016-07-02 16:15] VITALS: TEMP 99.6
--- NOTE | 2016-07-02 16:31 | RADRPT ---
PROCEDURE: XR Chest. CLINICAL INDICATION: Has not. Exacerbation. TECHNIQUE: Single AP portable chest COMPARISON: 06/09/2016 FINDINGS: The cardiac silhouette is enlarged. Marked vascular congestion. Small bilateral pleural effusions right greater than left. . Bilateral patchy interstitial and alveolar air space disease suggesting pulmonary edema. Superimposed infectious process cannot be excluded. There are No pneumothorax. T he osseous structures and soft tissues are unremarkable. IMPRESSION: 1. Stable extensive interstitial and alveolar air space disease most compatible with pulmonary edema and CHF. Superimposed infectious process cannot be excluded. RPTAT:AAJJ Leland Mendoza Physician Date Time Electronically viewed and signed by Physician Jamar on 07/02/2016 16:30 KELLEY/
[2016-07-02] MEDS ORDERED: PIPER-TAZO 3.375 GM IV (PMX) 100 ML IVPB STA (16:56)
[2016-07-02] MEDS ORDERED: VANCOMYCIN 1 GM (PMX) 250 ML IVPB ONE (17:00)
[2016-07-02 18:03] LABS: POTASSIUM 4.4 mmol/L (3.5-5.1)
[2016-07-02 18:05] LABS: ALBUMIN/GLOBULIN RATIO 0.53; BILIRUBIN,INDIRECT 0.3 mg/dl (0-1.1); BILIRUBIN,TOTAL 0.3 mg/dl (0.2-1.3); CREATININE 0.7 mg/dl (0.61-1.24); TOTAL PROTEIN 8.6 g/dl (6.1-8.1)
[2016-07-02 18:06] LABS: CALCIUM 8.1 mg/dl (8.4-10.2)
[2016-07-02 18:54] LABS: ADD UMIC NO; URINE BILIRUBIN (Dip) NEGATIVE (NEGATIVE); URINE BLOOD (Dip) NEGATIVE (NEGATIVE); URINE COLOR LT. YELLOW (YELLOW); URINE GLUCOSE (Dip) NEGATIVE (NEGATIVE); URINE KETONES (Dip) NEGATIVE (NEGATIVE); URINE LEUKOCYTE ESTERASE (Dip) NEGATIVE (NEGATIVE); URINE NITRITE (Dip) NEGATIVE (NEGATIVE); URINE TOTAL PROTEIN (Dip) NEGATIVE (NEGATIVE); URINE UROBILINOGEN (Dip) 0.2 E.U./dL (0.1-1.0)
[2016-07-02] MEDS ORDERED: ONDANSETRON 4 MG INJ IV PRN (19:00)
[2016-07-02] MEDS ORDERED: ACETAMINOPHEN 325 MG TAB PO PRN (19:00)
[2016-07-02 23:45] VITALS: PULSE 80
[2016-07-02 23:49] VITALS: BP 103/60; PULSE 79; RESP 20
[2016-07-03] VITALS (11 sets, daily range): BP systolic 94–113; BP diastolic 54–67; PULSE 77–83; RESP 15–20; Ht 167.6 cm; Wt 81.0 kg
[2016-07-03] MEDS ORDERED: ACETAMINOPHEN 325 MG TAB PO PRN (00:30)
[2016-07-03] MEDS ORDERED: FUROSEMIDE 40 MG INJ IV ONE ×3 (00:30→15:30)
[2016-07-03] MEDS ORDERED: VANCOMYCIN IV PER PHARMACY XX SCH (00:30)
[2016-07-03] MEDS ORDERED: morphine 2 MG INJ IV PRN (00:30)
[2016-07-03] MEDS ORDERED: ZOLPIDEM 5 MG TAB PO PRN (00:30)
[2016-07-03] MEDS: ALBUTEROL/IPRATROPIUM (NEB) 3 ML AMP HHN SCH ×5 (01:29→17:34)
[2016-07-03] MEDS: PIPER-TAZO 3.375 GM IV (PMX) 100 ML IVPB SCH ×2 (05:29→21:32)
[2016-07-03] MEDS: LEVOTHYROXINE 150 MCG TAB PO SCH (06:12)
[2016-07-03 06:38] LABS: POTASSIUM 4.2 mmol/L (3.5-5.1)
[2016-07-03 06:41] LABS: CREATININE 0.6 mg/dl (0.61-1.24)
[2016-07-03 06:42] LABS: CALCIUM 8.2 mg/dl (8.4-10.2); CHOL/HDL RATIO 2.5 RATIO; MAGNESIUM 1.8 mg/dl (1.7-2.5)
[2016-07-03 07:08] LABS: THYROID STIMULATING HORMONE 0.865 MIU/L (0.465-4.680)
[2016-07-03 07:09] LABS: TRIIODOTHYRONINE 0.51 ng/ml (0.97-1.69)
[2016-07-03 07:54] LABS: BASOPHIL # 0.1 10^3/ul (0.0-0.1); BASOPHILS % 1.1 % (0.0-2.0); EOSINOPHILS % 0.1 % (0.0-7.0); HEMATOCRIT 26.8 % (42.0-52.0); HEMOGLOBIN 8.7 g/dl (14.0-18.0); LYMPHOCYTES # 1.5 10^3/ul (0.8-2.9); LYMPHOCYTES % 28.3 % (15.0-51.0); MEAN CORPUSCULAR HEMOGLOBIN 26.5 pg (29.0-33.0); MEAN CORPUSCULAR HGB CONC 32.6 g/dl (32.0-37.0); MEAN CORPUSCULAR VOLUME 81.5 fl (82.0-101.0); MEAN PLATELET VOLUME 11.7 fl (7.4-10.4); MONOCYTE # 0.7 10^3/ul (0.3-0.9); MONOCYTES % 13.1 % (0.0-11.0); NEUTROPHILS % 57.4 % (39.0-77.0); PLATELET COUNT 84 10^3/UL (140-440); RED BLOOD COUNT 3.29 10^6/ul (4.70-6.10); RED CELL DISTRIBUTION WIDTH 21.1 % (11.5-14.5); UNCORRECTED WBC 5.3 10^3/ul (4.8-10.8); WHITE BLOOD COUNT 5.3 10^3/ul (4.8-10.8)
[2016-07-03 08:03] LABS: CONDITION 1; LH ANALYZER COMMENTS 1; SUSPECT 1
[2016-07-03 08:22] LABS: ALBUMIN 2.8 g/dl (3.3-4.9)
[2016-07-03 08:25] LABS: BILIRUBIN,INDIRECT 0.1 mg/dl (0-1.1); BILIRUBIN,TOTAL 0.1 mg/dl (0.2-1.3); TOTAL PROTEIN 7.6 g/dl (6.1-8.1)
[2016-07-03] MEDS: VANCOMYCIN 1.5 GM in SOD CHLORIDE 0.9% 250 ML IVPB SCH (10:07)
[2016-07-03] MEDS ORDERED: NACL 3% FOR INHALATION 15 ML NEBU NEB ONE (15:30)
[2016-07-03] MEDS ORDERED: FLUTICASONE 0.05% 16 GM NAS SPRAY NASAL PRN (15:30)
[2016-07-03] MEDS: PANTOPRAZOLE (EC) 40 MG TAB PO SCH (16:39)
[2016-07-03] MEDS: LEVOFLOXACIN 750 MG TABLET PO SCH (16:39)
[2016-07-03] MEDS: FERROUS SULFATE (EC) 325 MG TAB PO SCH (16:39)
[2016-07-03] MEDS: METHYLPREDNISOLONE 40 MG INJ IV SCH ×2 (17:00→21:07)
[2016-07-03] MEDS: ACETYLCYSTEINE 20% 4 ML VIAL NEB SCH ×2 (17:34→21:37)
--- NOTE | 2016-07-03 19:47 | HP ---
DATE OF ADMISSION: 07/02/2016 CHIEF COMPLAINT: "I was coughing white phlegm." HISTORY OF PRESENT ILLNESS: The patient is a very pleasant 80-year-old male with COPD and moderate pulmonary fibrosis who usually is on approximately 2 liters nasal cannula at home. He also has hype rtension, hypothyroidism as well as gastroesophageal reflux disease. He was in his usual state of h ealth until approximately 24 hours ago. The patient developed a fever of 101.2 in the emergency dep artment, had been afebrile at home. For the past 24 hours prior to admission, the patient stated he had a productive cough that was basically nonstop. He had white sputum [facility]. In the emergency department, the patient's chest x-ray revealed no infiltrates; however, he did have pulmonary vascular congestion. Of note, the patient was admitted on 06/09/2016 and discharged 11/2016. His discharge diagnosis included an upper respiratory tract infection, likely bronchopneumo emmie and he was treated with Levaquin as well as breathing treatments. The patient was noted to be o n Lasix 20 mg daily. However, when queried today, the patient stated that he takes all his medicati ons; however, his leg started to become progressively more swollen. The swelling increased over the last 3 days. The patient did note that he had carne asada as well as other meat and salty foods. He has dentures, but he does not use them and for this reason, he had difficulty chewing. This has also potentially contributed to the issue as well. ALLERGIES: NO KNOWN DRUG ALLERGIES. MEDICATIONS: 1. Albuterol inhaler 2 puffs q. 4 hours p.r.n. wheezing. 2. Flonase 1 spray to each nostril daily as needed. 3. Lasix 20 mg once daily. 4. DuoNeb q. 8 hours. 5. Levothyroxine 150 mcg daily. 6. Protonix 40 mg daily. 7. Advair 250/50 one puff twice daily. PAST MEDICAL HISTORY: 1. Moderate pulmonary fibrosis. 2. Chronic hypoxemia with 2 liters nasal cannula. 3. Hypothyroidism. 4. Hypertension. 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 REVIEW OF SYSTEMS: Essentially negative except as stated in history of present illness. SOCIAL HISTORY: The patient lives with his . He does not currently smoke as he quit 25 years a go. He does not drink alcohol. PHYSICAL EXAMINATION: VITAL SIGNS: Temperature in the emergency department was 101.2, which decreased to 97.3. Current t emperature is 98.8, blood pressure 113/65, pulse rate of 92, respiration rate 18, oxygen saturation 95% on 2 liters. HEENT: Normocephalic, atraumatic. Extraocular movements are intact. His pupils were equal, round, reactive to light. His left eye was reactive to light and accommodation. His right eye is a prost hesis. His oropharynx was mildly dry and he has no teeth. He was not wearing his dentures at that time as well. LUNGS: He had expiratory wheezes bilaterally in upper lung mccall and lower lung mccall had fair ai r movement. CARDIOVASCULAR: He had a regular rate and rhythm without appreciable murmurs, rubs, or gallops. ABDOMEN: Soft, nontender, nondistended with normoactive bowel sounds present in all 4 quadrants. EXTREMITIES: He had 2+ pitting edema bilaterally to the mid calf. He had 2+ dorsalis pedis pulses, 2+ radial pulses bilaterally. LABORATORIES/TESTS: His initial white count was 9.0, now it is 4.8, hemoglobin initially was 10.8, now it is down to 9.5, hematocrit 29.9, and platelet count of 55,000. His current platelet count 84 ,000. His sodium 140, potassium 4.2, chloride 95, bicarbonate 38, BUN 12, creatinine 0.6, glucose 1 08, calcium 8.2, magnesium 1.8, alkaline phosphatase mildly elevated at 129, which is lower than adm ission which was 145. Triglycerides 50, cholesterol 84, LDL 41, HDL 33. TSH is 0.865, free T4 is 6 .0. UA was essentially negative for infection and was described as 1.005. His chest x-ray revealed pulmonary edema and congestive heart failure with marked vascular congestio n and bilateral small pleural effusions, right greater than left. No pneumothorax was noted. Aorti c atherosclerosis was noted. IMPRESSION: The patient is a very pleasant 80-year-old male who was recently discharged on 06/10/19 17. He presents with congestive heart failure, likely secondary to dietary indiscretion and possibl e noncompliance or or poor understanding of his medication regimen. He has been given 40 mg o f intravenous Lasix and this will be repeated. He has 2+ pitting edema and still somewhat short of breath with frequent coughing, particularly while he lies flat. His head of bed will be elevated to 60 degrees and he will receive intravenous Lasix as well as bronchodilators. He stated the broncho dilators do help with breathing. There is no role for additional steroids at this time as I believe the symptomatology is likely more related to his congestive heart failure. 1. Hypertension: Stable. Currently, the patient is normotensive and for this reason, we will rein itiate his blood pressure medications as needed. The patient is receiving intravenous Lasix which i s an antihypertensive and diuretic so this will help to control his blood pressure while he is in [facility]. 2. Hypothyroidism: Stable. We will continue his outpatient medication. The patient was examined with a [place]uran speaking nurse present. All questions were answered to thei r satisfaction. The patient's was at the bedside as well and her questions were answered as we ll. As stated above, during this hospitalization, the patient will receive intravenous Lasix, DuoNe bs, Mucomyst to facilitate diuresis as well as treatment of his interstitial lung disease. He state s he does not ambulate with a walker and will receive physical therapy as well for gait retraining. The patient is also advised to follow up with his dentist to get dentures that fit better as he con tinues to eat solid food and states it is difficult to chew. He is at risk for aspiration and for t his reason this needs to be addressed as an outpatient. The patient and his verbalized underst anding and willing to comply. Dictated By: LAURA VAZQUEZ/SHARON Conf#: [id number] DID#: [id number]
[2016-07-04] VITALS (13 sets, daily range): BP systolic 93–113; BP diastolic 56–73; PULSE 80–97; RESP 18–20
[2016-07-04] MEDS: ZOLPIDEM 5 MG TAB PO PRN (00:26)
[2016-07-04] MEDS: ALBUTEROL/IPRATROPIUM (NEB) 3 ML AMP HHN SCH ×6 (02:08→20:05)
[2016-07-04] MEDS: ACETYLCYSTEINE 20% 4 ML VIAL NEB SCH ×4 (02:08→16:29)
[2016-07-04] MEDS: PANTOPRAZOLE (EC) 40 MG TAB PO SCH (06:20)
[2016-07-04] MEDS: LEVOFLOXACIN 750 MG TABLET PO SCH (06:20)
[2016-07-04] MEDS: LEVOTHYROXINE 150 MCG TAB PO SCH (06:20)
[2016-07-04] MEDS: METHYLPREDNISOLONE 40 MG INJ IV SCH (06:20)
[2016-07-04] MEDS: FUROSEMIDE 20 MG INJ IV SCH ×2 (06:25→18:31)
[2016-07-04 07:18] LABS: POTASSIUM 3.9 mmol/L (3.5-5.1)
[2016-07-04 07:20] LABS: CREATININE 0.66 mg/dl (0.61-1.24)
[2016-07-04 08:03] LABS: BASOPHILS % 0.8 % (0.0-2.0); EOSINOPHILS % 0.1 % (0.0-7.0); HEMATOCRIT 27.3 % (42.0-52.0); HEMOGLOBIN 8.8 g/dl (14.0-18.0); LYMPHOCYTES % 23.7 % (15.0-51.0); MEAN CORPUSCULAR HEMOGLOBIN 26.5 pg (29.0-33.0); MEAN CORPUSCULAR VOLUME 82.9 fl (82.0-101.0); MONOCYTE # 0.4 10^3/ul (0.3-0.9); MONOCYTES % 9.7 % (0.0-11.0); NEUTROPHIL # 2.7 10^3/ul (1.6-7.5); NEUTROPHILS % 65.7 % (39.0-77.0); PLATELET COUNT 92 10^3/UL (140-440); RED CELL DISTRIBUTION WIDTH 21.2 % (11.5-14.5); UNCORRECTED WBC 4.1 10^3/ul (4.8-10.8); WHITE BLOOD COUNT 4.1 10^3/ul (4.8-10.8)
[2016-07-04 08:05] LABS: CONDITION 1; LH ANALYZER COMMENTS 1
[2016-07-04] MEDS: FERROUS SULFATE (EC) 325 MG TAB PO SCH (09:15)
[2016-07-04] MEDS: DOCUSATE SODIUM 100 MG CAP PO SCH (09:15)
[2016-07-04] MEDS: VANCOMYCIN 1.5 GM in SOD CHLORIDE 0.9% 250 ML IVPB SCH (09:15)
--- NOTE | 2016-07-04 09:29 | RADRPT ---
PROCEDURE: XR Chest. CLINICAL INDICATION: CHF. TECHNIQUE: Single AP portable chest COMPARISON: 07/02/2016 FINDINGS: The cardiac silhouette is enlarged but stable in size. . Little interval change in extensive inters titial and alveolar air space disease most compatible with pulmonary edema and CHF. Trace bilateral pleural effusions. No pneumothorax. The osseous structures and soft tissues are unremarkable. IMPRESSION: 1. No interval change and interstitial and alveolar bilateral air space disease suggestive of CHF. Superimposed infectious process cannot be excluded.. RPTAT:AAJJ Leland Mendoza Physician Date Time Electronically viewed and signed by Physician Jamar on 07/04/2016 09:29 KELLEY/
--- NOTE | 2016-07-04 10:59 | PN ---
Date/Time of Note Date/Time of Note DATE: 07/04/16 TIME: 10:47 Assessment/Plan VTE Prophylaxis VTE Prophylaxis Intervention: SCD's Lines/Catheters [facility] Saline Lock Urinary Cath still in place: No Assessment/Plan Assessment/Plan 80-year-old male with: 1. Respiratory distress with known chronic hypoxemia and know ILD/pulmonary fibrosis and admitted with CHF exacerbation and volume overload on admission Continue diuresis with Lasix Also continue Advair, nebs Will switch to Prednisone with plan for a quick taper Titrate O2 back down to 2L NC 2. Congestive Heart Failure likely diastolic based on echo 10/2015 and also had Moderate , acute exacerbation with still +2 LE edema Repeat echo pending to re evaluate, continue Lasix as tolerated Monitor electrolytes 3. Hypertension: Stable to slightly low Continue Intravenous Lasix for diuresis as tolerated 4. Hypothyroidism: Stable. Continue home meds. Prophylaxis: SCDs to lower ext, PPI for GI ppx Disposition: PT eval today and d/c plan in the next 24 hrs He was advised to follow up with his dentist at discharge to get dentures that fit better as he continues to eat solid food and states it is difficult to chew. He is at risk for aspiration and for this reason this needs to be addressed as an outpatient. Subjective 24 Hr Interval Summary Free Text/Dictation Patient remains stable Respiratory status better Still with significant edema PT eval Exam/Review of Systems Vital Signs Vitals Vital Signs Date Time Temp Pulse Resp B/P Pulse Ox O2 Delivery O2 Flow Rate FiO2 07/04/16 08:33 73 20 95 Nasal Cannula 3.0 07/04/16 07:14 98.1 99/59 07/03/16 05:07 28 Intake and Output 07/03/16 07/03/16 07/04/16 14:59 22:59 06:59 Intake Total 250 ml 750 ml Balance 250 ml 750 ml Exam Constitutional: alert, oriented, well developed Respiratory: clear to auscultation, diminished breath sounds (bases bilaterally ) Cardiovascular: nl pulses, regular rate and rhythm Gastrointestinal: non-tender, soft Musculoskeletal: nl extremities to inspection Extremities: normal pulses, other (no clubbing or cyanosis, + 2 edema) 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: TECHNICAL STENOGRAPHER II-XII intact, nl mental status, nl speech, nl strength Results Result Diagram: 07/04/1630 07/04/16 0530 Results 24 hrs Laboratory Tests Test 07/04/16 05:30 Anion Gap 11 Basophils # 0.0 Basophils % 0.8 Blood Morphology Comment Blood Urea Nitrogen 16 Calcium Level 8.0 L Carbon Dioxide Level 41 *H Chloride Level 95 L Creatinine 0.66 Eosinophils # 0.0 Eosinophils % 0.1 Glucose Level 97 Hematocrit 27.3 L Hemoglobin 8.8 L Lymphocytes # 1.0 Lymphocytes % 23.7 Mean Corpuscular Hemoglobin 26.5 L Mean Corpuscular Hemoglobin Concent 32.0 Mean Corpuscular Volume 82.9 Mean Platelet Volume 11.0 H Monocytes # 0.4 Monocytes % 9.7 Neutrophils # 2.7 Neutrophils % 65.7 Nucleated Red Blood Cells # 0.0 Nucleated Red Blood Cells % 0.0 Platelet Count 92 L Potassium Level 3.9 Red Blood Count 3.30 L Red Cell Distribution Width 21.2 H Sodium Level 143 White Blood Count 4.1 #L Medications Medications Current Medications Acetaminophen (Tylenol Tab) 650 mg Q4H PRN PO PAIN AND OR ELEVATED TEMP; Start 07/03/16 at 00:30 Morphine Sulfate 2 mg 2 mg Q3H PRN IV PAIN; Start 07/03/16 at 00:30 Vancomycin HCl/ Sodium Chloride (Vancocin/NS) 250 ml @ 83.333 mls/ hr Q24H IVPB Last administered on 07/04/16 09:15; Admin Dose 83.333 MLS/HR; Start at 10:00 Docusate Sodium (Colace) 100 mg DAILY PO Last administered on 07/04/16 09:15; Admin Dose 100 MG; Start 07/04/16 at 09:00 Ferrous Sulfate (Ferrous Sulfate (Ec)) 325 mg DAILY PO Last administered on 09:15; Admin Dose 325 MG; Start 07/03/16 at 15:30 Fluticasone Propionate (Flonase 0.05% Nasal) 1 spray DAILY PRN NASAL PRN; Start 07/03/16 at 15:30 Pantoprazole (Protonix Tab) 40 mg DAILY@06 PO Last administered on 07/04/16 06 :20; Admin Dose 40 MG; Start 07/03/16 at 15:30 Levofloxacin (Levaquin) 750 mg DAILY@06 PO Last administered on 07/04/16 06:20 ; Admin Dose 750 MG; Start 07/03/16 at 15:30 Methylprednisolone Sodium Succinate (Solu-Medrol) 30 mg Q8 IV Last administered on 07/04/16t 06:20; Admin Dose 30 MG; Start 07/03/16 at 17:00 Procedures Procedures PROCEDURE: XR Chest. CLINICAL INDICATION: CHF. TECHNIQUE: Single AP portable chest COMPARISON: 07/02/2016 FINDINGS: The cardiac silhouette is enlarged but stable in size. . Little interval change in extensive interstitial and alveolar air space disease most compatible with pulmonary edema and CHF. Trace bilateral pleural effusions. No pneumothorax. The osseous structures and soft tissues are unremarkable. IMPRESSION: 1. No interval change and interstitial and alveolar bilateral air space disease suggestive of CHF. Superimposed infectious process cannot be excluded.. RPTAT:AAJJ Physician Jamar Date Time Electronically viewed and signed by Physician Jamar on 07/04/2016 09:29 Echocardiogram Report Patient Name: CARLA POLLARD Gender: Male Date: 1935 Study Date: 17-Oct-2015 Chef Teacher: ALESHIA Location: I Height(Cm): 165 Weight(Kg): 72 BSA: 1.82 Ref. Physician: ISREAL RONQUILLO Quality: Adequate Procedures: Transthoracic echocardiogram with complete 2D, M-Mode, and Doppler examination. Indications: Evaluate Left Ventricular function. Pulmonary Hypertension. 2D/M Mode Doppler Measurement Value Normal Ranges Measurement Value Normal Ranges AoR Diam MM 3.2 cm FENG Vmax 1.1 cm2 LVIDd 2D 4.3 3.5 - 5.6 cm FENG VTI 1.1 cm2 LVIDs 2D 2.5 2.1 - 4.1 cm AV Mean Josiah 1.9 m/sec LVPWd 2D 0.9 0.6 - 1.1 cm AV Mean PG 16.8 mmHg IVSd 2D 1.3 0.6 - 1.1 cm AV Peak Josiah 2.8 m/sec EDV 2D 82.3 cm3 AV Peak PG 32.4 mmHg ESV 2D 16.4 cm3 AV VTI 63.0 cm LA Dimen 2D 3.7 2.3 - 4.0 cm LVOT Mean Josiah 0.7 m/sec LVOT Diam 2.0 cm LVOT Mean PG 2.4 mmHg LVOT Peak Josiah 1.0 m/sec LVOT Peak PG 4.1 mmHg LVOT VTI 24.3 cm MV E Peak Josiah 1.0 m/sec MV A Peak Josiah 1.3 m/sec MV E/A 0.8 MV PHT 107.2 msec MV Peak Josiah 1.3 m/sec MV Peak PG 6.9 mmHg MV Mean Josiah 0.8 m/sec MV Mean PG 2.6 mmHg MV E/A 0.8 MV PHT 107.2 msec MV VTI 44.5 cm MVA PHT 2.1 cm2 TR Peak Josiah 3.0 m/sec TR Peak PG 35.7 mmHg PV Peak Josiah 1.1 m/sec PV Peak PG 5.0 mmHg RVSP 38.7 mmHg Findings Left Ventricle: Normal left ventricular systolic function. Mild hypertrophy of the basal septum. Ejection fraction is visually estimated at 65 %. Tissue Doppler/Mitral Doppler indices are consistent with impaired relaxation (Stage I diastolic dysfunction). E/E`=12. Right Ventricle: Normal right ventricular size. Normal right ventricular systolic function. Left Atrium: There is severe enlargement of left atrium by LA volume indexed. LA Volume Index=67. LA Dimension cm. Right Atrium: The right atrium is normal in size. Atrial Septum: Normal atrial septum. Mitral Valve: Mild to moderate mitral leaflet calcification. Mild mitral annular calcification. Mild mitral stenosis. Mitral valve Max Velocity 1.30 m/sec. MaxPG 7.00 mmHg. MeanPG 3.00 mmHg. Mitral Valve Area by PHT2.10 cm2. Aortic Valve: Moderate aortic stenosis. Aortic valve Max velocity 2.90 m/sec. Max PG 33.00 mmHg. Mean PG 18.00 mmHg. Aortic valve area 1.20 cm2. Aortic cusps appear moderately calcified. Trileaflet aortic valve. Tricuspid Valve: Normal appearance of the tricuspid valve. Estimated peak PA systolic pressure 39 mmHg. There is mild tricuspid regurgitation. Pulmonic Valve: Normal pulmonic valve appearance. There is trace pulmonic regurgitation. Pericardium: Normal pericardium with no significant pericardial effusion. Aorta: Normal aortic root. IVC: Normal size and normal respiratory collapse consistent with normal right atrial pressure. Pulmonary Artery: Normal pulmonary artery size. Conclusions 1. Normal left ventricular systolic function. Mild hypertrophy of the basal septum. Ejection fraction is visually estimated at 65 %. Tissue Doppler/Mitral Doppler indices are consistent with impaired relaxation (Stage I diastolic dysfunction). E/E`=12. 2. Normal right ventricular size. Normal right ventricular systolic function. 3. There is severe enlargement of left atrium by LA volume indexed. LA Volume Index=67. LA Dimension cm. 4. Mild to moderate mitral leaflet calcification. Mild mitral annular calcification. Mild mitral stenosis. Mitral valve Max Velocity 1.30 m/sec. MaxPG 7.00 mmHg. MeanPG 3.00 mmHg. Mitral Valve Area by PHT2.10 cm2. 5. Moderate aortic stenosis. Aortic valve Max velocity 2.90 m/sec. Max PG 33.00 mmHg. Mean PG 18.00 mmHg. Aortic valve area 1.20 cm2. Aortic cusps appear moderately calcified. Trileaflet aortic valve. 6. Normal appearance of the tricuspid valve. Estimated peak PA systolic pressure 39 mmHg. There is mild tricuspid regurgitation. 7. Normal size and normal respiratory collapse consistent with normal right atrial pressure. Electronically Signed By: Tee Davidson 17-Oct-2015 15:30:37 -0700 JUANITA RONQUILLO Jul 04, 2016 10:57
[2016-07-04] MEDS ORDERED: LEVOFLOXACIN 500 MG TAB PO SCH (11:00)
[2016-07-04] MEDS: SALMETEROL/FLUTICASONE 250/50 INHA INH SCH ×2 (11:42→22:04)
[2016-07-04] MEDS: predniSONE 20 MG TAB PO SCH (11:42)
[2016-07-05] VITALS (11 sets, daily range): BP systolic 94–113; BP diastolic 57–68; PULSE 67–85; RESP 18–19
[2016-07-05] MEDS: ACETYLCYSTEINE 20% 4 ML VIAL NEB SCH ×2 (00:53→08:57)
[2016-07-05] MEDS: ALBUTEROL/IPRATROPIUM (NEB) 3 ML AMP HHN SCH ×6 (00:53→20:40)
[2016-07-05] MEDS: FUROSEMIDE 20 MG INJ IV SCH (05:57)
[2016-07-05] MEDS: PANTOPRAZOLE (EC) 40 MG TAB PO SCH (05:57)
[2016-07-05] MEDS: LEVOTHYROXINE 150 MCG TAB PO SCH (07:00)
[2016-07-05 07:06] LABS: HEMATOCRIT 30.3 % (42.0-52.0); HEMOGLOBIN 9.7 g/dl (14.0-18.0); MEAN CORPUSCULAR HEMOGLOBIN 27.2 pg (29.0-33.0); MEAN CORPUSCULAR HGB CONC 32.1 g/dl (32.0-37.0); MEAN CORPUSCULAR VOLUME 84.7 fl (82.0-101.0); MEAN PLATELET VOLUME 9.4 fl (7.4-10.4); PLATELET COUNT 136 10^3/UL (140-440); RED BLOOD COUNT 3.57 10^6/ul (4.70-6.10); UNCORRECTED WBC 7.1 10^3/ul (4.8-10.8); WHITE BLOOD COUNT 7.1 10^3/ul (4.8-10.8)
[2016-07-05 07:32] LABS: CONDITION 1; LH ANALYZER COMMENTS 1; NUCLEATED RED BLOOD CELLS # 0.1 10^3/ul (0.0-0.0)
[2016-07-05 07:38] LABS: CREATININE 0.66 mg/dl (0.61-1.24); POTASSIUM 3.7 mmol/L (3.5-5.1)
[2016-07-05 07:39] LABS: CALCIUM 8.4 mg/dl (8.4-10.2)
[2016-07-05 08:01] LABS: MAGNESIUM 1.9 mg/dl (1.7-2.5); PHOSPHORUS 3.5 mg/dl (2.5-4.9)
[2016-07-05] MEDS ORDERED: POTASSIUM CHLORIDE (SR) 20 MEQ TAB PO STA (09:08)
[2016-07-05] MEDS: LEVOFLOXACIN 500 MG TAB PO SCH (09:36)
[2016-07-05] MEDS: predniSONE 20 MG TAB PO SCH (09:36)
[2016-07-05] MEDS: FERROUS SULFATE (EC) 325 MG TAB PO SCH (09:37)
[2016-07-05] MEDS: DOCUSATE SODIUM 100 MG CAP PO SCH (09:37)
[2016-07-05] MEDS: SALMETEROL/FLUTICASONE 250/50 INHA INH SCH ×2 (09:41→21:42)
[2016-07-05 10:28] LABS: AADO2 Arterial 28.8 mmHg (7.0-24.0); Allen Test ACCEPTAB; Arterial Base Excess 15.1 mmol/L (-3.0-3); Arterial COHb 1.2 % (0.0-3.0); Arterial Fraction of Oxyhgb 96.6 % (93.0-99.0); Arterial HCO3 42.6 mmol/L (22.0-26.0); Arterial MetHb 0.3 % (0.0-1.5); Arterial Total Hemglobin 12.1 g/dl (12.0-18.0); MODE NASAL CANNULA
--- NOTE | 2016-07-05 10:52 | PN ---
Date/Time of Note Date/Time of Note DATE: 07/05/16 TIME: 10:31 Assessment/Plan VTE Prophylaxis VTE Prophylaxis Intervention: other (TEDs) Lines/Catheters IV [facility] (from [facility]): Saline Lock Urinary Cath still in place: No Assessment/Plan Assessment/Plan 80-year-old male with: 1. Respiratory distress with known chronic hypoxemia and know ILD/pulmonary fibrosis and admitted with CHF exacerbation and volume overload on admission Continue diuresis with Lasix but will change to po given Also continue Advair, nebs Will switch to Prednisone with plan for a quick taper Titrate O2 back down to 2L NC, ABG OK 2. Congestive Heart Failure likely diastolic based on echo 10/2015 and also had Moderate , acute exacerbation with still +2 LE edema Continue Lasix as tolerated Replete K Echo results pending 3. Hypertension: Stable to slightly low still Continue po Lasix for diuresis as tolerated but will change to po today 4. Hypothyroidism: Stable. Continue home meds. Prophylaxis: TEDs to lower ext, PPI for GI ppx Disposition: PT eval today and d/c plan tomorrow if BMP better or stable, patient will need close follow up as outpatient. He was advised to follow up with his dentist at discharge to get dentures that fit better as he continues to eat solid food and states it is difficult to chew. He is at risk for aspiration and for this reason this needs to be addressed as an outpatient. Subjective 24 Hr Interval Summary Free Text/Dictation Patient remains stable and respiratory status much improved LE edema also improved but now also complaining of RLE calf pain, Doppler pending Noted to have metabolic acidosis Exam/Review of Systems Vital Signs Vitals Vital Signs Date Time Temp Pulse Resp B/P Pulse Ox O2 Delivery O2 Flow Rate FiO2 07/05/16 09:05 92 20 98 Nasal Cannula 3.0 07/05/16 07:15 98.2 94/61 07/03/16 05:07 28 Intake and Output 07/04/16 07/04/16 07/05/16 15:00 23:00 07:00 Intake Total 500 ml 720 ml 480 ml Balance 500 ml 720 ml 480 ml Exam Constitutional: alert, oriented, other (at baseline ), well developed Respiratory: clear to auscultation, normal air movement Cardiovascular: nl pulses, regular rate and rhythm Gastrointestinal: non-tender, soft Musculoskeletal: nl extremities to inspection Extremities: edema (erythema LE noted and edema better but still significant ) , normal pulses 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: RUNNING INSTRUCTOR II-XII intact, nl mental status, nl speech, nl strength Results Result Diagram: 07/05/16 0630 07/05/16 0630 Results 24 hrs Laboratory Tests Test 07/05/16 06:00 07/05/16 06:30 07/05/16 09:09 Magnesium Level 1.9 Phosphorus Level 3.5 Anion Gap 9 Basophils # Pending Basophils % Pending Blood Morphology Comment Blood Urea Nitrogen 14 Calcium Level 8.4 Carbon Dioxide Level 44 *H Chloride Level 94 L Creatinine 0.66 Eosinophils # Pending Eosinophils % Pending Glucose Level 77 Hematocrit 30.3 L Hemoglobin 9.7 L Lymphocytes # Pending Lymphocytes % Pending Mean Corpuscular Hemoglobin 27.2 L Mean Corpuscular Hemoglobin Concent 32.1 Mean Corpuscular Volume 84.7 Mean Platelet Volume 9.4 Monocytes # Pending Monocytes % Pending Neutrophils # Pending Neutrophils % Pending Nucleated Red Blood Cells # Pending Nucleated Red Blood Cells % Pending Platelet Count 136 #L Potassium Level 3.7 Red Blood Count 3.57 L Red Cell Distribution Width 21.0 H Sodium Level 143 White Blood Count 7.1 # Arterial Blood HCO3 42.6 *H Arterial Blood Base Excess 15.1 H Arterial Blood Oxygen Saturation 98.1 Juarez Test ACCEPTAB Arterial Blood Gas Puncture Site Left Radial Arterial Blood Carboxyhemoglobin 1.2 Arterial Blood Date Drawn 07/05/2016 10:10:39 AM Arterial Blood Methemoglobin 0.3 Arterial Blood pCO2 (Temp correct) 68.0 H Arterial Blood pH (Temp corrected) 7.415 Arterial Blood pO2 (Temp corrected) 105.2 H Blood Gas A-a O2 Differential 28.8 H Blood Gas Critical Value Read Back Karolina MATTSON RN Blood Gas Modality NASAL CANNULA Blood Gas Notified Time 07/05/2016 10:26:25 AM Blood Gas Notified Whom FIORELLA Blood Gas Specimen Source Blood arterial Blood Gas Temperature 37.0 FiO2 30.0 Oxyhemoglobin Percent 96.6 Total Hemoglobin 12.1 Medications Medications Current Medications Acetaminophen (Tylenol Tab) 650 mg Q4H PRN PO PAIN AND OR ELEVATED TEMP; Start 07/03/16 at 00:30 Morphine Sulfate (morphine) 2 mg Q3H PRN IV PAIN; Start 07/03/16 at 00:30 Docusate Sodium (Colace) 100 mg DAILY PO Last administered on 07/05/16 09:37; Admin Dose 100 MG; Start 07/04/16 at 09:00 Ferrous Sulfate (Ferrous Sulfate (Ec)) 325 mg DAILY PO Last administered on 09:37; Admin Dose 325 MG; Start 07/03/16 at 15:30 Fluticasone Propionate (Flonase 0.05% Nasal) 1 spray DAILY PRN NASAL PRN; Start 07/03/16 at 15:30 Pantoprazole (Protonix Tab) 40 mg DAILY@06 PO Last administered on 07/05/16 05 :57; Admin Dose 40 MG; Start 07/03/16 at 15:30 Prednisone (Prednisone) 40 mg DAILY PO Last administered on 07/05/16 09:36; Admin Dose 40 MG; Start 07/04/16 at 11:00 Levofloxacin (Levaquin) 500 mg DAILY PO Last administered on 07/05/16 09:36; Admin Dose 500 MG; Start 07/05/16 at 09:00; Stop 07/11/16 at 09:01 Salmeterol Xinafoate/ Fluticasone (Advair 250/50 Diskus) 1 inh BID INH Last administered on 07/05/16 09:41; Admin Dose 1 INH; Start 07/04/16 at 11:30 JUANITA RONQUILLO Jul 05, 2016 10:41
--- NOTE | 2016-07-05 12:29 | RADRPT ---
PROCEDURE: US DVT. CLINICAL INDICATION: Evaluate lower extremities for deep venous thrombosis.. TECHNIQUE: Multiple longitudinal and transverse images of the bilateral lower extremity veins were obtained with olivares scale and color Doppler imaging. 2D grayscale measurements with compression, co andrea Doppler flow, and augmentation was performed. The calf veins were interrogated as well. COMPARISON: No prior studies are available for comparison. FINDINGS: The bilateral common femoral, superficial femoral and popliteal veins are normally compressible thro ughout. Color flow demonstrates normal filling of the vessel. Normal waveforms are visualized and there is normal response to augmentation. The posterior tibial vein are visualized and are equally unremarkable. IMPRESSION: 1. No evidence of a deep vein thrombosis involving either lower extremity. RPTAT: AACC Physician Liam Date Time Electronically viewed and signed by Physician Liam on 07/05/2016 12:29 /
[2016-07-05 13:30] LABS: LYMPHOCYTES # 3.8 10^3/ul (0.8-2.9); MONOCYTE # 0.9 10^3/ul (0.3-0.9); NEUTROPHIL # 2.3 10^3/ul (1.6-7.5)
[2016-07-05] MEDS: FUROSEMIDE 20 MG TAB PO SCH (17:49)
--- NOTE | 2016-07-05 21:32 | RADRPT ---
Echocardiogram Report Patient Name: CARLA POLLARD Gender: Male Date: 1935 Study Date: 04-Jul-2016 Gatekeeper: Unique Holt [facility] Location: [address] Ref. Physician: ISREAL RONQUILLO Quality: Adequate Procedures: Transthoracic echocardiogram with complete 2D, M-Mode, and doppler examination. Indications: re eval Aortic Stenosis. 2D/M Mode Doppler Measurement Value Normal Ranges Measurement Value Normal Ranges LVIDd 2D 4.4 3.5 - 5.6 cm AV Mean Josiah 2.0 m/sec LVIDs 2D 2.3 2.1 - 4.1 cm AV Mean PG 18.0 mmHg FS 2D 47.8 % AV Peak Josiah 2.8 m/sec LVPWd 2D 0.9 0.6 - 1.1 cm AV Peak PG 30.0 mmHg IVSd 2D 0.9 0.6 - 1.1 cm AV VTI 61.1 cm IVS/LVPW 2D 1.0 LVOT Mean Josiah 0.9 m/sec AoR Diam 2D 2.9 2.0 - 3.7 cm LVOT Mean PG 4.0 mmHg LA/Ao 2D 2 0 - 1 LVOT Peak Josiah 1.3 m/sec EDV 2D 84.6 cm3 LVOT Peak PG 7.0 mmHg ESV 2D 12.0 cm3 LVOT VTI 29.1 cm LA Dimen 2D 4.5 2.3 - 4.0 cm MV E Peak Josiah 0.8 m/sec LVOT Diam 2.0 cm MV A Peak Josiah 1.3 m/sec MV E/A 0.6 MV Decel Time 225 msec MV E/A 0.6 TR Peak Josiah 4.0 m/sec TR Peak PG 63.0 mmHg RVSP 71.0 mmHg Findings Left Ventricle: Normal left ventricular systolic function. Normal left ventricular cavity size. Normal left ventricular wall thickness. Ejection fraction is visually estimated at 65 %. Tissue Doppler/Mitral Doppler indices are consistent with impaired relaxation (Stage I diastolic dysfunction). Right Ventricle: Normal right ventricular systolic function. Mild enlargement of right ventricle. Left Atrium: There is moderate enlargement of left atrium. Right Atrium: There is moderate enlargement of right atrium. Mitral Valve: Mitral valve leaflets appear moderately thickened. Moderate mitral annular calcification. Mild mitral valve regurgitation. Aortic Valve: Mild aortic stenosis. Aortic cusps appear moderately calcified. Trace aortic valve regurgitation. Tricuspid Valve: Normal appearance of the tricuspid valve. Estimated peak PA systolic pressure 71 mmHg. There is mild to moderate tricuspid regurgitation. Pericardium: Normal pericardium with no significant pericardial effusion. Aorta: Normal aortic root. IVC: Dilated IVC with respiratory collapse consistent with elevated right atrial pressure. Conclusions Normal left ventricular systolic function. Normal left ventricular cavity size. Normal left ventricular wall thickness. Ejection fraction is visually estimated at 65 %. Tissue Doppler/Mitral Doppler indices are consistent with impaired relaxation (Stage I diastolic dysfunction). Normal right ventricular systolic function. Mild enlargement of right ventricle. There is moderate enlargement of left atrium. There is moderate enlargement of right atrium. Estimated peak PA systolic pressure 71 mmHg. There is mild to moderate tricuspid regurgitation. Mild aortic stenosis. Trace aortic valve regurgitation. Mild mitral valve regurgitation. Normal pericardium with no significant pericardial effusion. Electronically Signed By: Justin Murphy 05-Jul-2016 21:31:56 -0800 Patient Name: CARLA POLLARD Study Date: 04-Jul-2016 [id number]
[2016-07-05] MEDS: ZOLPIDEM 5 MG TAB PO PRN (21:42)
[2016-07-06] VITALS (8 sets, daily range): BP systolic 92–108; BP diastolic 54–61; PULSE 73–82; RESP 19–20
[2016-07-06] MEDS: ALBUTEROL/IPRATROPIUM (NEB) 3 ML AMP HHN SCH ×4 (00:24→13:33)
[2016-07-06] MEDS: LEVOTHYROXINE 150 MCG TAB PO SCH (06:02)
[2016-07-06] MEDS: PANTOPRAZOLE (EC) 40 MG TAB PO SCH (06:02)
[2016-07-06] MEDS: FUROSEMIDE 20 MG TAB PO SCH (06:03)
[2016-07-06 07:00] LABS: BASOPHIL # 0.1 10^3/ul (0.0-0.1); BASOPHILS % 1.2 % (0.0-2.0); EOSINOPHILS % 0.8 % (0.0-7.0); HEMATOCRIT 30.7 % (42.0-52.0); HEMOGLOBIN 9.5 g/dl (14.0-18.0); LYMPHOCYTES # 2.3 10^3/ul (0.8-2.9); LYMPHOCYTES % 36.8 % (15.0-51.0); MEAN CORPUSCULAR HEMOGLOBIN 26.5 pg (29.0-33.0); MEAN CORPUSCULAR VOLUME 85.7 fl (82.0-101.0); MEAN PLATELET VOLUME 9.8 fl (7.4-10.4); MONOCYTE # 0.6 10^3/ul (0.3-0.9); MONOCYTES % 10.3 % (0.0-11.0); NEUTROPHIL # 3.2 10^3/ul (1.6-7.5); NEUTROPHILS % 50.9 % (39.0-77.0); PLATELET COUNT 109 10^3/UL (140-440); RED BLOOD COUNT 3.59 10^6/ul (4.70-6.10); RED CELL DISTRIBUTION WIDTH 21.3 % (11.5-14.5); UNCORRECTED WBC 6.2 10^3/ul (4.8-10.8); WHITE BLOOD COUNT 6.2 10^3/ul (4.8-10.8)
[2016-07-06 07:05] LABS: CONDITION 1; LH ANALYZER COMMENTS 1
[2016-07-06 07:28] LABS: POTASSIUM 3.8 mmol/L (3.5-5.1)
[2016-07-06 07:29] LABS: MAGNESIUM 1.8 mg/dl (1.7-2.5); PHOSPHORUS 3.3 mg/dl (2.5-4.9)
[2016-07-06 07:30] LABS: CREATININE 0.56 mg/dl (0.61-1.24)
[2016-07-06 07:31] LABS: CALCIUM 8.1 mg/dl (8.4-10.2)
[2016-07-06] MEDS: SALMETEROL/FLUTICASONE 250/50 INHA INH SCH (08:59)
[2016-07-06] MEDS: predniSONE 20 MG TAB PO SCH (08:59)
[2016-07-06] MEDS: DOCUSATE SODIUM 100 MG CAP PO SCH (08:59)
[2016-07-06] MEDS: FERROUS SULFATE (EC) 325 MG TAB PO SCH (08:59)
[2016-07-06] MEDS: LEVOFLOXACIN 500 MG TAB PO SCH (08:59)
[2016-07-06] MEDS ORDERED: POTASSIUM CHLORIDE (SR) 10 MEQ TAB PO ONE (11:30)
--- NOTE | 2016-07-06 13:16 | PN ---
Date/Time of Note Date/Time of Note DATE: 07/06/16 TIME: 13:04 Assessment/Plan VTE Prophylaxis VTE Prophylaxis Intervention: SCD's, other (TEds) Lines/Catheters IV Catheter Type (from [facility]): Saline Lock Urinary Cath still in place: No Assessment/Plan Assessment/Plan 80-year-old male with: 1. Respiratory distress with known chronic hypoxemia and know ILD/pulmonary fibrosis and admitted with CHF exacerbation and volume overload on admission Continue diuresis with Lasix but will change to po given Also continue Advair, nebs Prednisone taper and d/c home on 2LNC which is home O2 requirement. 2. Congestive Heart Failure likely diastolic based on echo 10/2015 and also had Moderate , acute exacerbation with still +2 LE edema Continue Lasix as tolerated 20 mg po daily with fluid restriction 1 to 1.5 L Replete K today 3. Hypertension: Stable to slightly low still Continue po Lasix for diuresis as tolerated but will change to po daily. 4. Hypothyroidism: Stable. Continue home meds. Prophylaxis: TEDs to lower ext, PPI for GI ppx Disposition: PT eval today and d/c plan home with Home O2, Home Health PT and FWW Patient will need close follow up as outpatient. He was advised to follow up with his dentist at discharge to get dentures that fit better as he continues to eat solid food and states it is difficult to chew. He is at risk for aspiration and for this reason this needs to be addressed as an outpatient. Subjective 24 Hr Interval Summary Free Text/Dictation Patient doing better and back on 2L NC and stable Edema much improved and patient feels back to baseline Afebrile and labs stable Exam/Review of Systems Vital Signs Vitals Vital Signs Date Time Temp Pulse Resp B/P Pulse Ox O2 Delivery O2 Flow Rate FiO2 07/06/16 12:18 73 07/06/16 11:50 98.1 20 101/55 95 07/06/16 08:46 3.0 07/06/16 08:43 Nasal Cannula 07/03/16 05:07 28 Intake and Output 07/05/16 07/05/16 07/06/16 15:00 23:00 07:00 Intake Total 720 ml 400 ml Balance 720 ml 400 ml Exam Constitutional: alert, oriented, well developed Respiratory: clear to auscultation, normal air movement Cardiovascular: nl pulses, regular rate and rhythm Gastrointestinal: non-tender, soft Musculoskeletal: nl extremities to inspection Extremities: normal pulses, other (trace to +1 edema ) 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: SUPPLY COORDINATOR II-XII intact, nl mental status, nl speech, nl strength Results Result Diagram: 07/06/1661607/06/1617 Results 24 hrs Laboratory Tests Test 07/06/16 06:17 Anion Gap 9 Basophils # 0.1 Basophils % 1.2 Blood Morphology Comment Blood Urea Nitrogen 13 Calcium Level 8.1 L Carbon Dioxide Level 43 *H Chloride Level 93 L Creatinine 0.56 L Eosinophils # 0.0 Eosinophils % 0.8 Glucose Level 77 Hematocrit 30.7 L Hemoglobin 9.5 L Lymphocytes # 2.3 Lymphocytes % 36.8 Magnesium Level 1.8 Mean Corpuscular Hemoglobin 26.5 L Mean Corpuscular Hemoglobin Concent 31.0 L Mean Corpuscular Volume 85.7 Mean Platelet Volume 9.8 Monocytes # 0.6 Monocytes % 10.3 Neutrophils # 3.2 Neutrophils % 50.9 Nucleated Red Blood Cells # 0.0 Nucleated Red Blood Cells % 0.0 Phosphorus Level 3.3 Platelet Count 109 L Potassium Level 3.8 Red Blood Count 3.59 L Red Cell Distribution Width 21.3 H Sodium Level 141 White Blood Count 6.2 Medications Medications Current Medications Acetaminophen (Tylenol Tab) 650 mg Q4H PRN PO PAIN AND OR ELEVATED TEMP; Start 07/03/16 at 00:30 Morphine Sulfate (morphine) 2 mg Q3H PRN IV PAIN; Start 07/03/16 at 00:30 Docusate Sodium (Colace) 100 mg DAILY PO Last administered on 07/06/16 08:59; Admin Dose 100 MG; Start 07/04/16 at 09:00 Ferrous Sulfate (Ferrous Sulfate (Ec)) 325 mg DAILY PO Last administered on 07/06 08:59; Admin Dose 325 MG; Start 07/03/16 at 15:30 Fluticasone Propionate (Flonase 0.05% Nasal) 1 spray DAILY PRN NASAL PRN; Start 07/03/16 at 15:30 Pantoprazole (Protonix Tab) 40 mg DAILY@06 PO Last administered on 07/06/16 06: 02; Admin Dose 40 MG; Start 07/03/16 at 15:30 Prednisone (Prednisone) 40 mg DAILY PO Last administered on 07/06/16 08:59; Admin Dose 40 MG; Start 07/04/16 at 11:00 Levofloxacin (Levaquin) 500 mg DAILY PO Last administered on 07/06/16 08:59; Admin Dose 500 MG; Start 07/05/16 at 09:00; Stop 07/11/16 at 09:01 Salmeterol Xinafoate/ Fluticasone (Advair 250/50 Diskus) 1 inh BID INH Last administered on 07/06/16 08:59; Admin Dose 1 INH; Start 07/04/16 at 11:30 Furosemide (Lasix) 20 mg DAILY PO ; Start 07/07/16 at 09:00 Procedures Procedures Echocardiogram Report Patient Name: CARLA POLLARD Gender: Male Date: 1935 Study Date: 04-Jul-2016 Groundskeeping Yardman: Unique Holt RDCS Location: [facility] Ref. Physician: ISREAL RONQUILLO Quality: Adequate Procedures: Transthoracic echocardiogram with complete 2D, M-Mode, and doppler examination. Indications: re eval Aortic Stenosis. 2D/M Mode Doppler Measurement Value Normal Ranges Measurement Value Normal Ranges LVIDd 2D 4.4 3.5 - 5.6 cm AV Mean Josiah 2.0 m/sec LVIDs 2D 2.3 2.1 - 4.1 cm AV Mean PG 18.0 mmHg FS 2D 47.8 % AV Peak Josiah 2.8 m/sec LVPWd 2D 0.9 0.6 - 1.1 cm AV Peak PG 30.0 mmHg IVSd 2D 0.9 0.6 - 1.1 cm AV VTI 61.1 cm IVS/LVPW 2D 1.0 LVOT Mean Josiah 0.9 m/sec AoR Diam 2D 2.9 2.0 - 3.7 cm LVOT Mean PG 4.0 mmHg LA/Ao 2D 2 0 - 1 LVOT Peak Josiah 1.3 m/sec EDV 2D 84.6 cm3 LVOT Peak PG 7.0 mmHg ESV 2D 12.0 cm3 LVOT VTI 29.1 cm LA Dimen 2D 4.5 2.3 - 4.0 cm MV E Peak Josiah 0.8 m/sec LVOT Diam 2.0 cm MV A Peak Josiah 1.3 m/sec MV E/A 0.6 MV Decel Time 225 msec MV E/A 0.6 TR Peak Josiah 4.0 m/sec TR Peak PG 63.0 mmHg RVSP 71.0 mmHg Findings Left Ventricle: Normal left ventricular systolic function. Normal left ventricular cavity size. Normal left ventricular wall thickness. Ejection fraction is visually estimated at 65 %. Tissue Doppler/Mitral Doppler indices are consistent with impaired relaxation (Stage I diastolic dysfunction). Right Ventricle: Normal right ventricular systolic function. Mild enlargement of right ventricle. Left Atrium: There is moderate enlargement of left atrium. Right Atrium: There is moderate enlargement of right atrium. Mitral Valve: Mitral valve leaflets appear moderately thickened. Moderate mitral annular calcification. Mild mitral valve regurgitation. Aortic Valve: Mild aortic stenosis. Aortic cusps appear moderately calcified. Trace aortic valve regurgitation. Tricuspid Valve: Normal appearance of the tricuspid valve. Estimated peak PA systolic pressure 71 mmHg. There is mild to moderate tricuspid regurgitation. Pericardium: Normal pericardium with no significant pericardial effusion. Aorta: Normal aortic root. IVC: Dilated IVC with respiratory collapse consistent with elevated right atrial pressure. Conclusions Normal left ventricular systolic function. Normal left ventricular cavity size. Normal left ventricular wall thickness. Ejection fraction is visually estimated at 65 %. Tissue Doppler/Mitral Doppler indices are consistent with impaired relaxation (Stage I diastolic dysfunction). Normal right ventricular systolic function. Mild enlargement of right ventricle. There is moderate enlargement of left atrium. There is moderate enlargement of right atrium. Estimated peak PA systolic pressure 71 mmHg. There is mild to moderate tricuspid regurgitation. Mild aortic stenosis. Trace aortic valve regurgitation. Mild mitral valve regurgitation. Normal pericardium with no significant pericardial effusion. Electronically Signed By: Justin Murphy 05-Jul-2016 21:31:56 -0800 JUANITA RONQUILLO Jul 06, 2016 13:14
--- NOTE | 2016-07-06 13:18 | PDOCDIS ---
Discharge Instructions CONDITION Patient Condition: Stable HOME CARE INSTRUCTIONS: Special Diet: Cardiac diet ACTIVITY: Activity Restrictions: No Restrictions FOLLOW UP/APPOINTMENTS Appointments Follow up with PCP within 1 week Follow up with Home Health PT and home health RN check Follow up with High risk clinic within 1 to 2 weeks JUANITA RONQUILLO Jul 06, 2016 13:18
[2016-07-06] MEDS ORDERED: PRED20 PO (13:20)
[2016-07-06] MEDS ORDERED: LAS20 PO (13:20)
[2016-07-06] MEDS ORDERED: PANT40TA4 PO (13:20)
[2016-07-06] MEDS ORDERED: LEVO500T72 PO (13:20)
[2016-07-06] MEDS ORDERED: ADV25050 INH (13:25)
[2016-07-07] MEDS ORDERED: FUROSEMIDE 20 MG TAB PO SCH (09:00)
== END 2016-07-06 15:02 | disposition home or self-care (01) | DRG 293 ==
LOC: E/R 14:51 → TEL 18:39
PROVIDERS: ADMIT Internal Medicine; ATTEND Internal Medicine
DX: I11.0 Hypertensive heart disease with heart failure (principal); J84.10 Pulmonary fibrosis, unspecified; Z99.81 Dependence on supplemental oxygen; I50.33 Acute on chronic diastolic (congestive) heart failure; Z87.891 Personal history of nicotine dependence; R09.02 Hypoxemia; E03.9 Hypothyroidism, unspecified; K21.9 Gastro-esophageal reflux disease without esophagitis; Z91.11 Patient's noncompliance with dietary regimen; I35.0 Nonrheumatic aortic (valve) stenosis
CPT/HCPCS: 36600; 71010; 80048; 80053; 80061; 80076; 81003; 82803; 83735; 83880; 84100; 84436; 84443; 84480; 84484; 85025; 87040; 87086; 87400; 92610; 93005; 93306; 93970; 94640; 94644; 96361; 96365; 96366; 96367; 96375; 97116; 97162; 97530; J1940; J2543; J2920; J2930; J3370; J7040; J7050; J7512

== ENCOUNTER 2016-10-27 18:45 | Emergency (ER) | payer OTHER ==
[~2016-10-27] VITALS: Wt 81.0 kg
[~2016-10-27 18:45] MED LIST changes: -ACET500C5 PO; -ALBU8.5H3 INH; -CIPR2.5D11 LEFT EYE; +DOCU-159 PO; +FER325 PO; -FURO20TA3 PO; +HYDR-902 PO; +LAS20 PO; +LEVO500T72 PO; -LEVO750T25 PO; +PRED20TA PO
[2016-10-27] MEDS ORDERED: FUROSEMIDE 40 MG INJ IV ONE (21:30)
[2016-10-27 21:31] LABS: ADD SCAN DIFF NO
[2016-10-27 21:32] LABS: ABNORMAL IP MESSAGE 1; BASOPHIL # 0.1 10^3/ul (0.0-0.1); BASOPHILS % 0.8 % (0.0-2.0); EOSINOPHILS # 0.1 10^3/ul (0.0-0.5); EOSINOPHILS % 1.3 % (0.0-7.0); HEMATOCRIT 33.5 % (42.0-52.0); HEMOGLOBIN 9.8 g/dl (14.0-18.0); LYMPHOCYTES % 26.7 % (15.0-51.0); MEAN CORPUSCULAR HEMOGLOBIN 27.1 pg (29.0-33.0); MEAN CORPUSCULAR HGB CONC 29.3 g/dl (32.0-37.0); MEAN CORPUSCULAR VOLUME 92.5 fl (82.0-101.0); MONOCYTE # 1.1 10^3/ul (0.3-0.9); MONOCYTES % 14.4 % (0.0-11.0); NEUTROPHIL # 4.3 10^3/ul (1.6-7.5); NEUTROPHILS % 56.1 % (39.0-77.0); PLATELET COUNT 104 10^3/UL (140-415); RED BLOOD COUNT 3.62 10^6/ul (4.70-6.10); RED CELL DISTRIBUTION WIDTH 18.5 % (11.5-14.5); WHITE BLOOD COUNT 7.6 10^3/ul (4.8-10.8)
--- NOTE | 2016-10-27 21:42 | RADRPT ---
PROCEDURE: US Scrotum. CLINICAL INDICATION: Scrotal pain. TECHNIQUE: Multiple sonographic images of the scrotal region were obtained utilizing a linear arra y transducer with grayscale and color-flow and pulsed Doppler imaging. The images were reviewed on a high-resolution PACS workstation. COMPARISON: No prior studies are available for comparison. FINDINGS: The right testis measures 2.8 x 2.3 x 2.4 cm. The left testis measures 2.7 x 2.2 x 2.0 cm. There is no intratesticular mass. The epididymi are normal. There is normal flow to both testes demonstrated with color Doppler and pulsed Doppler sonography. There are small bilateral hydroceles. There is no varicocele. There is diffuse scrotal wall thickening. IMPRESSION: 1. Small bilateral hydroceles. 2. Diffuse scrotal wall thickening. 3. Otherwise normal scrotal ultrasound. RPTAT: QQ .Antonio Yin MD, MD Date Time Electronically viewed and signed by .Antonio Yin MD, on 10/27/2016 21:41 .R/
[2016-10-27 21:46] LABS: ALBUMIN 2.8 g/dl (3.3-4.9); CHLORIDE 94 mmol/L (97-110)
--- NOTE | 2016-10-27 21:46 | RADRPT ---
PROCEDURE: XR Chest. CLINICAL INDICATION: Shortness of breath. TECHNIQUE: Single frontal view. COMPARISON: 07/04/2016. FINDINGS: There is extensive bilateral pulmonary interstitial disease and there are low lung volumes consisten t with a chronic infiltrative process. This also appears similar to the prior studies from 2016. T here is no focal airspace disease to suggest pneumonia. The heart is mildly enlarged. There is calcification in the aorta consistent with atherosclerosis. There is no pleural effusion. There is no pneumothorax. IMPRESSION: 1. Extensive bilateral pulmonary interstitial disease and volume loss consistent with a chronic inf iltrative process. Clinical correlation advised. 2. Mild cardiomegaly and atherosclerosis. RPTAT: QQ .Antonio Yin MD, MD Date Time Electronically viewed and signed by .Antonio Yin MD, on 10/27/2016 21:46 .R/
[2016-10-27 21:47] LABS: POTASSIUM 5.3 mmol/L (3.5-5.1); SODIUM 139 mmol/L (135-144)
[2016-10-27 21:49] LABS: ALANINE AMINOTRANSFERASE 14 IU/L (13-69); ALBUMIN/GLOBULIN RATIO 0.49; ALKALINE PHOSPHATASE 197 IU/L (42-121); ANION GAP 14 (8-16); ASPARTATE AMINO TRANSFERASE 24 IU/L (15-46); BILIRUBIN,INDIRECT 0.2 mg/dl (0-1.1); BILIRUBIN,TOTAL 0.2 mg/dl (0.2-1.3); BLOOD UREA NITROGEN 13 mg/dl (7-20); CARBON DIOXIDE 36 mmol/L (21-31); CREATININE 0.52 mg/dl (0.61-1.24); GLUCOSE 88 mg/dl (70-220); TOTAL PROTEIN 8.5 g/dl (6.1-8.1)
[2016-10-27 21:50] LABS: CALCIUM 7.9 mg/dl (8.4-10.2)
[2016-10-27 22:06] LABS: TROPONIN-I < 0.012 ng/ml (0.00-0.12)
[2016-10-27] MEDS ORDERED: ALBU18HF INHALATION (22:38)
[2016-10-27] MEDS ORDERED: POTA-57 PO (22:38)
[2016-10-27] MEDS ORDERED: UMEC62.5 IH (22:38)
[2016-10-27] MEDS ORDERED: FAMO20TA18 PO (22:39)
[2016-10-27] MEDS ORDERED: FURO-110 PO (22:57)
--- NOTE | 2016-10-27 23:04 | ERD ---
ER Documentation Chief Complaint Date/Time DATE: 10/27/16 TIME: 23:00 Chief Complaint TESTICULAR SWELLING X3DAYS HPI 80-year-old man presents with increasing lower extremity swelling and scrotal edema. It seems he has had similar symptoms although much more mild in the past. He denies difficulty urinating, denies chest pain or shortness of breath , he has had no fevers or chills, no melena or blood per rectum, no vomiting or diarrhea. Patient denies hematuria or penile discharge. ROS All systems reviewed and are negative except as per history of present illness. Medications Home Meds Active Scripts Furosemide* (Lasix*) 20 Mg Tablet, 20 MG PO DAILY, #7 TAB Prov:MINISTERIO GARRISON MD 10/27/16 Salmeterol Xinaf/Fluticasone* (Advair*) 250-50 Diskus Inhaler, 1 INH INH BID, # 1 3 Refills Prov:JUANITA RONQUILLO 07/06/16 Furosemide (Lasix) 20 Mg Tab, 20 MG PO DAILY for 30 Days, TAB 3 Refills Prov:JUANITA RONQUILLO 07/06/16 Ipratropium-Albuterol (Ipratropium-Albuterol) 0.5-3 Mg/3 Ml Ampul.neb, 3 ML HHN Q8H RESP THERAPY for 30 Days Prov:JUANITA RONQUILLO 10/19/15 Reported Medications Famotidine* (Famotidine*) 20 Mg Tablet, 20 MG PO DAILY, #30 TAB 10/27/16 Umeclidinium [place] (Incruse Ellipta) 62.5 Mcg Blst.w.dev, 62.5 MCG IH 1PUFF DAILY 10/27/16 Potassium Chloride* (Klor-Con*) 20 Meq Tabsr, 20 MEQ PO BID, TAB.SA 10/27/16 Albuterol Sulfate* (Ventolin HFA*) 18 Gm Hfa.aer.ad, 2 PUFF INHALATION Q4H, #1 INHALER 10/27/16 Docusate Sodium* (Docusate Sodium*) 100 Mg Capsule, 100 MG PO DAILY, #30 CAP 07/02/16 Ferrous Sulfate* (Ferrous Sulfate*) 325 Mg Tabec, 325 MG PO DAILY, TAB 07/02/16 Fluticasone Propionate* (Fluticasone Propionate* Nasal) 50 Mcg/[place] - 16 Gm [place].susp, 1 SPRAY NASAL DAILY Y for PRN, #1 BOTTLE TO EACH NOSTRIL 01/14/16 Levothyroxine Sodium* (Levothyroxine Sodium*) 150 Mcg Tablet, 150 MCG PO BEFORE BREAKFAST, #30 TAB 01/14/16 Discontinued Reported Medications Hydrocodone/Acetaminophen ([place] 10-325 Tablet) 1 Each Tablet, 1 EACH PO QHS Y for SEVERE PAIN LEVEL 7-10, TAB 07/02/16 Discontinued Scripts Prednisone (Prednisone) 20 Mg Tab, 40 MG PO DAILY for 7 Days, TAB see taper Prov:JUANITA RONQUILLO 07/06/16 Pantoprazole* (Pantoprazole*) 40 Mg Tablet.dr, 40 MG PO DAILY@06 for 30 Days Prov:JUANITA RONQUILLO 07/06/16 Levofloxacin* (Levaquin*) 500 Mg Tablet, 500 MG PO DAILY for 5 Days, TAB Prov:JUANITA RONQUILLO 07/06/16 Allergies Allergies: Coded Allergies: No Known Allergy (Unverified , 10/27/16) PMhx/Soc Interstitial lung disease/pulmonary fibrosis, chronic obstructive pulmonary disease, congestive heart failure, hypertension, hypothyroidism History of Surgery: No Anesthesia Reaction: No Hx 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 Disorder: No Hx Respiratory Disorders: Yes (COPD,Pulmonary Fibrosis) Hx Cardiac Disorders: Yes (anemia) Hx Psychiatric Problems: No Hx Miscellaneous Medical Probl: Yes (UTIN,COPD,dyslipidemia, thyroiditis) Hx Alcohol Use: Yes Hx Substance Use: No Hx Tobacco Use: Yes Smoking Status: Former smoker FmHx Family History: No diabetes Physical Exam Vitals Vital Signs Date Time Temp Pulse Resp B/P Pulse Ox O2 Delivery O2 Flow Rate FiO2 10/28/16 00:16 72 16 140/80 99 10/27/16 21:10 75 18 117/83 97 Room Air 10/27/16 18:50 97.6 72 20 110/57 92 Physical Exam GENERAL: Well-developed, well-nourished, well-hydrated, in no apparent distress , looks nontoxic in appearance, afebrile, oxygen saturation on room air 98% and normal HEENT: Moist mucous membranes, pink conjunctiva, no cervical spine tenderness or step-off deformities, no goiter, no jaundice or icterus, extraocular movements intact without pain. NEURO: Alert and oriented 3, cranial nerves II through XII intact bilaterally, pupils equal round reactive to light, no focal deficits or facial asymmetry CARDIAC: Regular rate and rhythm, no murmurs rubs or gallops LUNGS: Clear bilaterally no wheezing crackles or stridor ABDOMEN: Soft nontender, no guarding, no rigidity, no rebound, no psoas sign no obturator sign. Normoactive bowel sounds SKIN: Warm and dry to touch, no abrasions, contusions, or hematomas, no lacerations, no ecchymosis, no target lesions, and without ulcers EXTREMITIES: No clubbing cyanosis, 3+ pitting edema in the lower extremities bilaterally, calves are bilaterally symmetrical, he has scrotal edema as well as mild pitting edema to the sacral back consistent with anasarca. No lower extremity erythema, distal pulses equal bilateral, no Homans sign PSYCH: Normal affect without agitation or irritability Result Diagram: 10/27/16212410/27/162124 Results 24 hrs Laboratory Tests Test 10/27/16 21:25 White Blood Count 7.610^3/ul Red Blood Count 3.6210^6/ul Hemoglobin 9.8g/dl Hematocrit 33.5% Mean Corpuscular Volume 92.5fl Mean Corpuscular Hemoglobin 27.1pg Mean Corpuscular Hemoglobin Concent 29.3g/dl Red Cell Distribution Width 18.5% Platelet Count 59258^3/UL Mean Platelet Volume fl Neutrophils % 56.1% Lymphocytes % 26.7% Monocytes % 14.4% Eosinophils % 1.3% Basophils % 0.8% Nucleated Red Blood Cells % 0.0/100WBC Neutrophils # 4.310^3/ul Lymphocytes # 2.010^3/ul Monocytes # 1.110^3/ul Eosinophils # 0.110^3/ul Basophils # 0.110^3/ul Nucleated Red Blood Cells # 0.010^3/ul Sodium Level 139mmol/L Potassium Level 5.3mmol/L Chloride Level 94mmol/L Carbon Dioxide Level 36mmol/L Anion Gap 14 Blood Urea Nitrogen 13mg/dl Creatinine 0.52mg/dl Glucose Level 88mg/dl Calcium Level 7.9mg/dl Total Bilirubin 0.2mg/dl Direct Bilirubin 0.00mg/dl Indirect Bilirubin 0.2mg/dl Aspartate Amino Transf (AST/SGOT) 24IU/L Alanine Aminotransferase (ALT/SGPT) 14IU/L Alkaline Phosphatase 197IU/L Troponin I < 0.012ng/ml Total Protein 8.5g/dl Albumin 2.8g/dl Globulin 5.70g/dl Albumin/Globulin Ratio 0.49 Lipase 24U/L Current Medications Medications (Trade) Dose Ordered Sig/Jose Daniel Route PRN Reason Start Time Stop Time Status Last Admin Dose Admin Furosemide 60 mg 60 mg ONCE ONCE IV 10/27/16 21:30 10/27/16 21:31 DC 10/27/16 21:29 Calcium Gluconate/ Sodium Chloride (Ca Gluc/NS) 110 ml @ 110 mls/hr ONCE ONCE IVPB 10/27/16 23:15 10/28/16 00:14 DC 10/27/16 23:33 Procedures/MDM IV line was established patient was placed on cardiac tech rhythm strip revealed a sinus rhythm at about 70 bpm with upright P and T waves. Patient was afebrile. EKG performed, read by me: 72 bpm, normal sinus rhythm, normal axis, no acute ST segment changes, narrow QRS complex, with good R-wave progression in precordial leads. One view chest x-ray performed, read by me revealed bilateral interstitial lung disease and fibrosis, no acute infiltrates, no pneumothorax. I compared this chest x-ray with previous x-rays there are no significant changes. CBC revealed mild anemia with a hemoglobin of 9.8, electrolytes revealed mild hyperkalemia 5.3, liver function tests are normal, troponin was negative. Scrotal/testicular ultrasound was performed, no testicular torsion was noted. There was scrotal fluid collection. Please refer to radiologist dictation for full report. I administered furosemide 60 mg IV for diuresis, patient also received calcium gluconate 1 g IV for hypocalcemia. Differential diagnoses considered, included but not limited to acute coronary syndrome, pulmonary embolism, aortic dissection, abdominal aortic aneurysm, sepsis, stroke, meningitis, encephalitis, pneumonia, appendicitis, cholecystitis , bowel obstruction, pyelonephritis, nephrolithiasis, cystitis, as well as metabolic, hematologic, and electrolyte abnormalities. As well as abscess, cellulitis, fractures, and dislocations. Patient feels much better at this time, and vital signs are normal, symptoms have improved. I did give strict instructions to return to the ED if symptoms continue or worsen, patient will otherwise follow-up with primary care physician. Patient understood instructions and agreed to plan. Disclaimer: Inadvertent spelling or grammatical errors are likely due to EHR/ dictation software use and do not reflect on the overall quality of patient care. Departure Diagnosis: Primary Impression: Peripheral edema Additional Impressions: Anasarca Hyperkalemia Interstitial lung disease Hypocalcemia Condition: Good Patient Instructions: Peripheral Edema, Bilateral Referrals: RACHEL THURSTON (PCP) MINISTERIO GARRISON MD October 27, 2016 23:04
[2016-10-27] MEDS ORDERED: CALCIUM GLUCONATE 10% 1 GM in SOD CHLORIDE 0.9% 100 ML IVPB ONE (23:15)
[2016-10-28 00:16] VITALS: BP 140/80; PULSE 72; RESP 16
== END 2016-10-28 00:18 | disposition home or self-care (01) ==
LOC: E/R 18:45
DX: R60.0 Localized edema (principal); R60.1 Generalized edema; E87.5 Hyperkalemia; J84.9 Interstitial pulmonary disease, unspecified; E83.51 Hypocalcemia; J44.9 Chronic obstructive pulmonary disease, unspecified; I50.9 Heart failure, unspecified; I10 Essential (primary) hypertension; E03.9 Hypothyroidism, unspecified; Z87.891 Personal history of nicotine dependence
CPT/HCPCS: 36415; 71010; 76870; 80053; 83690; 84484; 85025; 93005; 96374; 96375; 99285; J0610; J1940

== ENCOUNTER 2016-11-12 19:36 | Inpatient (IN) | payer OTHER ==
[~2016-11-12] VITALS: Ht 180.3 cm; Wt 83.6 kg
[~2016-11-12 19:36] MED LIST changes: +ALBU18HF INHALATION; +FAMO20TA18 PO; +FURO-110 PO; -HYDR-902 PO; -LEVO500T72 PO; -PANT40TA4 PO; +POTA-57 PO; -PRED20TA PO; +UMEC62.5 IH
[2016-11-12] MEDS ORDERED: ALBUTEROL 0.083% (NEB) 2.5 MG/3 ML AMP INH STA (20:28)
[2016-11-12 20:35] LABS: ADD SCAN DIFF NO
[2016-11-12 20:39] LABS: BASOPHILS % 0.5 % (0.0-2.0); EOSINOPHILS # 0.1 10^3/ul (0.0-0.5); HEMATOCRIT 30.6 % (42.0-52.0); HEMOGLOBIN 9.3 g/dl (14.0-18.0); LYMPHOCYTES % 25.7 % (15.0-51.0); MEAN CORPUSCULAR HEMOGLOBIN 28.1 pg (29.0-33.0); MEAN CORPUSCULAR HGB CONC 30.4 g/dl (32.0-37.0); MEAN CORPUSCULAR VOLUME 92.4 fl (82.0-101.0); MEAN PLATELET VOLUME 12.1 fl (7.4-10.4); MONOCYTE # 1.3 10^3/ul (0.3-0.9); MONOCYTES % 16.3 % (0.0-11.0); NEUTROPHIL # 4.3 10^3/ul (1.6-7.5); PLATELET COUNT 128 10^3/UL (140-415); RED BLOOD COUNT 3.31 10^6/ul (4.70-6.10); RED CELL DISTRIBUTION WIDTH 19.1 % (11.5-14.5); WHITE BLOOD COUNT 7.7 10^3/ul (4.8-10.8)
--- NOTE | 2016-11-12 20:47 | ERA ---
ER Documentation Chief Complaint Date/Time DATE: 11/12/16 TIME: 20:44 Chief Complaint SOB and Edema, HX of CHF and O2 dependent HPI Patient is a 81-year-old male with history of CHF and COPD who presents with 8 days of gradual onset, constant, progressive shortness of breath associated with bilateral lower extremity edema. The patient reports having occasional, poorly described substernal chest pain. He reports nonproductive cough. He denies pleuritic chest pain. He denies fever, denies vomiting. Patient is on home oxygen. ROS All systems reviewed and are negative except as per history of present illness. Medications Home Meds Active Scripts Furosemide* (Lasix*) 20 Mg Tablet, 20 MG PO DAILY, #7 TAB Prov:MINISTERIO GARRISON MD 10/27/16 Salmeterol Xinaf/Fluticasone* (Advair*) 250-50 Diskus Inhaler, 1 INH INH BID, # 1 3 Refills Prov:JUANITA KULKARNI 07/06/16 Furosemide (Lasix) 20 Mg Tab, 20 MG PO DAILY for 30 Days, TAB 3 Refills Prov:JUANITA KULKARNI 07/06/16 Ipratropium-Albuterol (Ipratropium-Albuterol) 0.5-3 Mg/3 Ml Ampul.neb, 3 ML HHN Q8H RESP THERAPY for 30 Days Prov:JUANITA KULKARNI 10/19/15 Reported Medications Famotidine* (Famotidine*) 20 Mg Tablet, 20 MG PO DAILY, #30 TAB 10/27/16 Umeclidinium [place] (Incruse Ellipta) 62.5 Mcg Blst.w.dev, 62.5 MCG IH 1PUFF DAILY 10/27/16 Potassium Chloride* (Klor-Con*) 20 Meq Tabsr, 20 MEQ PO BID, TAB.SA 10/27/16 Albuterol Sulfate* (Ventolin HFA*) 18 Gm Hfa.aer.ad, 2 PUFF INHALATION Q4H, #1 INHALER 10/27/16 Docusate Sodium* (Docusate Sodium*) 100 Mg Capsule, 100 MG PO DAILY, #30 CAP 07/02/16 Ferrous Sulfate* (Ferrous Sulfate*) 325 Mg Tabec, 325 MG PO DAILY, TAB 07/02/16 Fluticasone Propionate* (Fluticasone Propionate* Nasal) 50 Mcg/Sherman - 16 Gm Sherman.susp, 1 SPRAY NASAL DAILY Y for PRN, #1 BOTTLE TO EACH NOSTRIL 01/14/16 Levothyroxine Sodium* (Levothyroxine Sodium*) 150 Mcg Tablet, 150 MCG PO BEFORE BREAKFAST, #30 TAB 01/14/16 Allergies Allergies: Coded Allergies: No Known Allergy (Unverified , 10/27/16) PMhx/Soc Past medical history: COPD, CHF, hypothyroidism Past surgical history: Denies Social history: Former alcohol and tobacco, no current use. History of Surgery: No Anesthesia Reaction: No Hx 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 Disorder: No Hx Respiratory Disorders: Yes (COPD,Pulmonary Fibrosis) Hx Cardiac Disorders: Yes (anemia) Hx Psychiatric Problems: No Hx Miscellaneous Medical Probl: Yes (UTIN,COPD,dyslipidemia, thyroiditis) Hx Alcohol Use: Yes Hx Substance Use: No Hx Tobacco Use: Yes Smoking Status: Former smoker FmHx Family History: No coronary disease, No diabetes Physical Exam Vitals Vital Signs Date Time Temp Pulse Resp B/P Pulse Ox O2 Delivery O2 Flow Rate FiO2 11/12/16 23:00 20 101/78 96 Nasal Cannula 2.0 11/12/16 21:00 76 24 103/63 100 Nasal Cannula 2.0 11/12/16 20:50 81 24 95 Nasal Cannula 2.0 28 11/12/16 20:35 Nasal Cannula 2 11/12/16 20:10 Nasal Cannula 4.0 11/12/16 20:00 99 20 116/64 100 Nasal Cannula 2.0 11/12/16 19:46 99.2 99 32 93/66 98 Physical Exam Const: Alert, no acute distress Head: Atraumatic Eyes: Normal Conjunctiva, no pallor, no icterus ENT: Normal External Ears, Nose and Mouth. Tacky mucous membranes Neck: Full range of motion..~ No meningismus. No JVD Resp: Bibasilar rales, no wheezes Cardio: Irregularly irregular rhythm, mild tachycardia, 2/6 systolic murmur Abd: Soft, non tender, non distended. No guarding, no rebound Skin: No petechiae or rashes Back: No midline or flank tenderness Ext: No cyanosis, 3+ pitting edema to bilateral legs up to the thighs Neur: Awake and alert, cranial nerves II through XII intact bilaterally, patient moves and feels 4 extremities appropriately. Psych: Normal Mood and Affect Result Diagram: 11/12/16202211/12/162022 Results 24 hrs Laboratory Tests Test 11/12/16 20:23 White Blood Count 7.710^3/ul Red Blood Count 3.3110^6/ul Hemoglobin 9.3g/dl Hematocrit 30.6% Mean Corpuscular Volume 92.4fl Mean Corpuscular Hemoglobin 28.1pg Mean Corpuscular Hemoglobin Concent 30.4g/dl Red Cell Distribution Width 19.1% Platelet Count 21259^3/UL Mean Platelet Volume 12.1fl Neutrophils % 56.0% Lymphocytes % 25.7% Monocytes % 16.3% Eosinophils % 1.0% Basophils % 0.5% Nucleated Red Blood Cells % 0.0/100WBC Neutrophils # 4.310^3/ul Lymphocytes # 2.010^3/ul Monocytes # 1.310^3/ul Eosinophils # 0.110^3/ul Basophils # 0.010^3/ul Nucleated Red Blood Cells # 0.010^3/ul Prothrombin Time 15.6Sec Prothrombin Time Ratio 1.2 INR International Normalized Ratio 1.23 Activated Partial Thromboplast Time 32.1Sec Sodium Level 138mmol/L Potassium Level 5.0mmol/L Chloride Level 98mmol/L Carbon Dioxide Level 37mmol/L Anion Gap 8 Blood Urea Nitrogen 12mg/dl Creatinine 0.60mg/dl Glucose Level 96mg/dl Calcium Level 8.1mg/dl Total Bilirubin 0.3mg/dl Direct Bilirubin 0.00mg/dl Indirect Bilirubin 0.3mg/dl Aspartate Amino Transf (AST/SGOT) 27IU/L Alanine Aminotransferase (ALT/SGPT) 21IU/L Alkaline Phosphatase 171IU/L Troponin I < 0.012ng/ml B-Type Natriuretic Peptide 7460PG/ML Total Protein 8.3g/dl Albumin 3.5g/dl Globulin 4.80g/dl Albumin/Globulin Ratio 0.72 Current Medications Medications (Trade) Dose Ordered Sig/Jose Daniel Route PRN Reason Start Time Stop Time Status Last Admin Dose Admin Albuterol (Proventil 0.083% (Neb)) 5 mg ONCE STAT INH 11/12/16 20:28 11/12/16 20:29 DC 11/12/16 20:50 Furosemide (Lasix) 20 mg ONCE ONCE IV 11/12/16 23:30 11/12/16 23:31 DC 11/12/16 23:07 Ondansetron HCl (Zofran Inj) 4 mg ER BRIDGE PRN IV NAUSEA AND/OR VOMITING 11/12/16 23:30 11/13/16 23:29 Acetaminophen (Tylenol Tab) 650 mg ER BRIDGE PRN PO MILD PAIN/FEVER 11/12/16 23:30 11/13/16 23:29 Procedures/MDM EKG read by me: Time 204, rate 83 Rhythm: Sinus rhythm Gratis: Rightward axis Intervals: Normal ST-T waves: T-wave flattening Ectopy: Occasional PACs Q-waves: No Impression: Sinus rhythm with occasional PACs, T-wave flattening, no ischemia MDM: Patient is a 81-year-old male with CHF and COPD who presents to the ER with 1 week of increased dyspnea and leg swelling. He is found to have an elevated BNP, and chest x-ray consistent with pulmonary edema. He is on home oxygen. There is no evidence of coronary ischemia or LA. Patient has a low normal blood pressure. He was given a bolus of IV Lasix. He will be admitted to observation telemetry for further diuresis for CHF exacerbation. The patient 's chest x-ray was read as possible pneumonia, but on my read of the x-ray it is consistent with pulmonary edema. Clinically, I have low suspicion for pneumonia. The patient has no fever or leukocytosis, no productive cough. The patient's symptoms, exam, and workup are consistent with CHF exacerbation. The patient was given albuterol, but his lung exam is not suggestive of COPD exacerbation. The patient is noted to have been in the ER 2 weeks ago with leg edema, but did not have significant respiratory symptoms at that time. He was sent home, but has continued to worsen since that time. The patient is also found to have stable anemia. There are no symptoms to suggest GI bleed. The patient will be admitted by Dr. Kulkarni. Departure Diagnosis: Primary Impression: CHF exacerbation Qualified Code: I50.9 - Acute on chronic congestive heart failure, unspecified congestive heart failure type Additional Impression: Anemia Qualified Code: D64.9 - Anemia, unspecified type Condition: CHANTELLE Romero MD Nov 12, 2016 20:47
[2016-11-12 20:56] LABS: INR 1.23; PROTIME 15.6 Sec (12.2-14.2); PT RATIO 1.2
[2016-11-12 20:57] LABS: PARTIAL THROMBOPLASTIN TIME 32.1 Sec (25.0-35.0)
[2016-11-12 21:04] LABS: ALANINE AMINOTRANSFERASE 21 IU/L (13-69); ALBUMIN 3.5 g/dl (3.3-4.9); ALBUMIN/GLOBULIN RATIO 0.72; ALKALINE PHOSPHATASE 171 IU/L (42-121); ANION GAP 8 (8-16); ASPARTATE AMINO TRANSFERASE 27 IU/L (15-46); BILIRUBIN,INDIRECT 0.3 mg/dl (0-1.1); BILIRUBIN,TOTAL 0.3 mg/dl (0.2-1.3); BLOOD UREA NITROGEN 12 mg/dl (7-20); CALCIUM 8.1 mg/dl (8.4-10.2); CARBON DIOXIDE 37 mmol/L (21-31); CHLORIDE 98 mmol/L (97-110); GLUCOSE 96 mg/dl (70-220); SODIUM 138 mmol/L (135-144); TOTAL PROTEIN 8.3 g/dl (6.1-8.1)
[2016-11-12 21:15] LABS: B-TYPE NATRIURETIC PEPTIDE 7460 PG/ML (0-450)
[2016-11-12 21:19] LABS: TROPONIN-I < 0.012 ng/ml (0.00-0.12)
--- NOTE | 2016-11-12 22:10 | RADRPT ---
PROCEDURE: XR Chest. CLINICAL INDICATION: Dyspnea. TECHNIQUE: Single frontal view of the chest was obtained COMPARISON: 03/04/2017. FINDINGS: Cardiomegaly with atherosclerotic calcifications in the thoracic aorta. Increased bilateral patchy air space disease. Findings represent moderate to severe failure versus bilateral pneumonias. There is no pleural effusion or pneumothorax. IMPRESSION: Moderate to severe failure versus bilateral pneumonias, increased over interval. RPTAT: [facility] Physician Bruce Date Time Electronically viewed and signed by Carlos Manuel Arroyo Physician on 11/12/2016 22:10 RS/
[2016-11-12] MEDS ORDERED: ACETAMINOPHEN 325 MG TAB PO PRN (23:30)
[2016-11-12] MEDS ORDERED: FUROSEMIDE 20 MG INJ IV ONE (23:30)
[2016-11-12] MEDS ORDERED: ONDANSETRON 4 MG INJ IV PRN (23:30)
[2016-11-13] VITALS (10 sets, daily range): BP systolic 98–139; BP diastolic 51–78; PULSE 53–90; RESP 18–20; Ht 180.3 cm; Wt 83.6 kg
[2016-11-13] MEDS ORDERED: BISACODYL 10 MG SUPP PR PRN (00:30)
[2016-11-13] MEDS ORDERED: morphine 2 MG INJ IV PRN (00:30)
[2016-11-13] MEDS ORDERED: ACETAMINOPHEN 325 MG TAB PO PRN (00:30)
[2016-11-13] MEDS ORDERED: MAGNESIUM HYDROXIDE 30ML CUP PO PRN (00:30)
[2016-11-13] MEDS ORDERED: ONDANSETRON 4 MG INJ IV PRN (00:30)
[2016-11-13] MEDS ORDERED: BUMETANIDE 6 MG in DEXTROSE 5% 36 ML IV ONE ×2 (00:30→13:15)
[2016-11-13] MEDS ORDERED: NACL 0.9% 3 ML SYG IV SCH (00:30)
[2016-11-13] MEDS: LEVOTHYROXINE 150 MCG TAB PO SCH (06:47)
[2016-11-13 07:24] LABS: ADD SCAN DIFF NO
[2016-11-13 07:31] LABS: BASOPHIL # 0.1 10^3/ul (0.0-0.1); BASOPHILS % 0.7 % (0.0-2.0); EOSINOPHILS # 0.1 10^3/ul (0.0-0.5); EOSINOPHILS % 1.2 % (0.0-7.0); HEMATOCRIT 31.3 % (42.0-52.0); HEMOGLOBIN 9.3 g/dl (14.0-18.0); LYMPHOCYTES # 1.9 10^3/ul (0.8-2.9); LYMPHOCYTES % 25.6 % (15.0-51.0); MEAN CORPUSCULAR HEMOGLOBIN 27.2 pg (29.0-33.0); MEAN CORPUSCULAR HGB CONC 29.7 g/dl (32.0-37.0); MEAN CORPUSCULAR VOLUME 91.5 fl (82.0-101.0); MEAN PLATELET VOLUME 12.8 fl (7.4-10.4); MONOCYTE # 1.2 10^3/ul (0.3-0.9); NEUTROPHIL # 4.1 10^3/ul (1.6-7.5); NEUTROPHILS % 56.1 % (39.0-77.0); PLATELET COUNT 109 10^3/UL (140-415); RED BLOOD COUNT 3.42 10^6/ul (4.70-6.10); WHITE BLOOD COUNT 7.3 10^3/ul (4.8-10.8)
[2016-11-13 07:58] LABS: ALBUMIN 3.3 g/dl (3.3-4.9); ALBUMIN/GLOBULIN RATIO 0.7; BILIRUBIN,INDIRECT 0.3 mg/dl (0-1.1); BILIRUBIN,TOTAL 0.3 mg/dl (0.2-1.3); CALCIUM 8.1 mg/dl (8.4-10.2); CHOL/HDL RATIO 1.8 RATIO; CREATININE 0.6 mg/dl (0.61-1.24); MAGNESIUM 1.9 mg/dl (1.7-2.5)
[2016-11-13] MEDS: ALBUTEROL/IPRATROPIUM (NEB) 3 ML AMP HHN SCH ×2 (08:05→15:49)
[2016-11-13 08:11] LABS: CK-MB 1.26 ng/ml (0.0-2.4); CREATINE KINASE < 20 IU/L (23-200); TROPONIN-I 0.025 ng/ml (0.00-0.12)
[2016-11-13] MEDS: FERROUS SULFATE (EC) 325 MG TAB PO SCH (08:30)
[2016-11-13] MEDS: DOCUSATE SODIUM 100 MG CAP PO SCH (08:30)
[2016-11-13] MEDS: FAMOTIDINE 20 MG TAB PO SCH (08:30)
[2016-11-13] MEDS: POTASSIUM CHLORIDE (SR) 20 MEQ TAB PO SCH ×2 (08:30→21:12)
[2016-11-13] MEDS: SALMETEROL/FLUTICASONE 250/50 INHA INH SCH ×2 (08:30→21:13)
--- NOTE | 2016-11-13 14:52 | HP ---
DATE OF ADMISSION: 11/12/2016 CHIEF COMPLAINT ON ADMISSION: Severe anasarca, lower extremity edema and shortness of breath. HISTORY OF PRESENT ILLNESS: This is an 81-year-old male with known history of moderate pulmonary fi brosis. Currently, oxygen dependent on 2 to 3 liters nasal cannula at home, hypertension, hypothyro idism, also with recent diagnosis of diastolic congestive heart failure and moderate aortic stenosis who presented to the emergency department with complaint of worsening generalized edema. This has been going on for the past 4 days. The patient also reports orthopnea. He does have been worsening for the past 4 to 5 days. The patient was here a few weeks ago at [facility] ER. He was started on Lasix 20 mg daily, discharged home from the ER and apparently according to the f amily, the patient was diuresing well, but over the past 4 to 5 days he stopped having significant u rine output. Along with the decreased urine output, he started having increasing lower extremity ed henry that progressed to increased generalized anasarca. In the emergency department, he was given 20 mg of Lasix IV with not much of a diuresis. He was marina radha on a Bumex drip overnight and diuresed quite well overnight. The patient reports that during th e time that his symptoms were worsening at home, he did check his weight and gained 28 pounds over a period of 3 to 4 days. He is doing much better this morning. He is on 3 to 4 liters nasal cannula . His lower extremity edema is down to his suprapubic area. His upper extremities are less swollen . He still has significant edema of the lower extremity all the way up to the suprapubic area. He is going to go on a second round of Bumex drip for 6 hours today. He denies any chest pain, nausea, vomiting, fevers or chills. He had decreased appetite, which is much improved this morning. He brown s been admitted on telemetry observation. ALLERGIES: NO KNOWN ALLERGIES. PAST MEDICAL HISTORY: 1. Moderate pulmonary fibrosis. 2. Chronic hypoxemia on 2 to 3 liters nasal cannula at home. 3. Hypothyroidism. 4. Hypertension. 5. Congestive heart failure, diastolic dysfunction. 6. Moderate aortic stenosis. 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 REVIEW OF SYSTEMS: As per HPI. The patient denies any neurological deficits. SOCIAL HISTORY: The patient lives with his . He does not smoke or drink alcohol. OUTPATIENT MEDICATIONS: 1. Ventolin HFA 2 puffs inhaled every 4 hours as needed for shortness of breath. 2. DuoNeb every 8 hours around the clock. 3. Incruse Ellipta 62.5 mcg inhaled daily. 4. Ferrous sulfate 325 mg p.o. daily. 5. Lasix 20 mg p.o. daily. 6. Klor-Con 20 mEq p.o. b.i.d. 7. Advair 1 puff inhaled twice daily. 8. Fluticasone nasal spray daily as needed to each nostril. 9. Colace 100 mg p.o. daily. 10. Pepcid 20 mg p.o. daily. 11. Levothyroxine 150 mcg p.o. daily. PHYSICAL EXAMINATION: VITAL SIGNS: Temperature is 99.9, pulse of 73, sinus rhythm, respiratory rate of 20, blood pressure 106/76. The patient is saturating 93% to 97% on 2 to 4 liters nasal cannula. GENERAL: He is alert and oriented x4, very pleasant gentleman who feels better this morning. HEENT: Left pupil is reactive to light. He has a glass eye in his right eye. NECK: No JVD, no thyromegaly noted. HEART: Regular rate and rhythm. LUNGS: Decreased breath sounds at the bases. He does have some rales bilaterally, otherwise no exp iratory wheezes heard. ABDOMEN: Soft, nondistended, nontender, but he definitely has pitting edema and anasarca in that ar ea. EXTREMITIES: No clubbing or cyanosis. He again has significant pitting edema all the way up to his thighs and suprapubic area and bilateral lower extremities which is improved. NEUROLOGIC: Grossly intact. LABORATORY DATA: White blood cell count is 7.3, hemoglobin 9.3, hematocrit 31.3, platelet count of 109. Chemistry with a sodium of 140, potassium 4.0, chloride 98, bicarbonate 38, BUN 11, creatinine 0.60, glucose of 79, calcium 8.1. Renal function testing within normal except for alkaline phospha tase of 160. Cardiac enzymes negative x2. BNP 7416, fasting lipid panel with LDL of 21, HDL of 36. TSH and free T4 within normal. INR 1.23, PT 15.6, PTT 32.1. RADIOLOGICAL DATA: Chest x-ray compared to prior chest x-ray shows a moderate to severe failure nicole flower bilateral pneumonia, increased over interval. Electrocardiogram: On telemetry, he is in sinus rhythm with PACs in the 90s. ASSESSMENT AND PLAN: This is an 81-year-old male with: 1. Respiratory distress and significant volume overload and anasarca secondary this time probably t o diastolic congestive heart failure exacerbation, acute on chronic. He has been diuresed overnight , he needs further diuresis today. We will use Bumex drip. We will check his BMP in the morning ag ain. Renal function remains stable. 2. Chronic moderate pulmonary fibrosis and chronic hypoxemia. Continue supplemental oxygen and cur rent medications including Advair and nebulizer treatments. 3. Hypertension. The patient has not been on much medication, just diuretics. Will continue Bumex drip and monitor his blood pressure. 4. Hypothyroidism. Continue home medications. 5. Prophylaxis: Sequential compression devices to lower extremity for DVT prophylaxis as tolerated . Proton pump inhibitors for GI prophylaxis. 6. Disposition. The patient is being aggressively diuresed currently, daily weights will be checke d and will monitor his urine output. Dictated By: JUANITA CRAIN/SHARON Conf#: [id number] DID#: [id number]
--- NOTE | 2016-11-13 16:04 | RADRPT ---
PROCEDURE: CT Chest without contrast. CLINICAL INDICATION: Chronic interstitial changes. TECHNIQUE: Volumetrically acquired images of the thorax without intravenous contrast were reformat yohana in the axial, sagittal, and coronal planes. Radiation dose: CTDIvol (mGy) = 11.8; total DLP mGy-cm = 3/94. One or more of the following radiation dose techniques were used: -Automated exposure control. -Adjust of the mA and/or kV according to patient size. -Use of iterative reconstruction technique. COMPARISON: 10/17/2015. FINDINGS: Cardiomegaly without pericardial effusion. There are coronary artery, aortic valve leaflet, mitral annulus, and atherosclerotic aortic calcifications. There is bilateral supraclavicular and multi compartmental mediastinal lymphadenopathy, likely react bertha. Enlargement of the central pulmonary arteries; the main pulmonary artery with a maximal axial diamet er 40 mm, suggestive of pulmonary hypertension. Diffuse lower greater than upper subpleural and peribronchovascular fine and coarse reticulation, te xtured ground-glass parenchymal attenuation, architectural and pleural parenchymal interface distort ion, traction bronchiectasis and bronchiolectasis, and honeycombing in keeping with a chronic fibros ing interstitial pneumonia. 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 Diffuse ground-glass changes identified in the bilateral lung mccall, concerning for superimposed ed henry in the context of trace effusions, small ascites, and diffuse overlying anasarca. Supraclavicular and multi compartmental mediastinal lymphadenopathy, likely reactive. Enlargement of the central pulmonary arteries, consistent with pulmonary hypertension, likely on the basis of chronic lung disease. RPTAT: EE .Dallas Ocasio MD, MD Date Time Electronically viewed and signed by .Dallas Ocasio MD, on 11/13/2016 16:08 .C/
[2016-11-14] VITALS (12 sets, daily range): BP systolic 86–125; BP diastolic 55–84; PULSE 75–88; RESP 18–20
[2016-11-14] MEDS: LEVOTHYROXINE 150 MCG TAB PO SCH (06:21)
[2016-11-14 07:34] LABS: ADD SCAN DIFF NO
[2016-11-14 07:45] LABS: ABNORMAL IP MESSAGE 1; BASOPHILS % 0.6 % (0.0-2.0); EOSINOPHILS # 0.1 10^3/ul (0.0-0.5); EOSINOPHILS % 1.5 % (0.0-7.0); HEMATOCRIT 30.1 % (42.0-52.0); LYMPHOCYTES # 1.6 10^3/ul (0.8-2.9); LYMPHOCYTES % 24.4 % (15.0-51.0); MEAN CORPUSCULAR HEMOGLOBIN 27.4 pg (29.0-33.0); MEAN CORPUSCULAR HGB CONC 29.9 g/dl (32.0-37.0); MEAN CORPUSCULAR VOLUME 91.5 fl (82.0-101.0); MONOCYTES % 15.2 % (0.0-11.0); NEUTROPHIL # 3.8 10^3/ul (1.6-7.5); RED BLOOD COUNT 3.29 10^6/ul (4.70-6.10); RED CELL DISTRIBUTION WIDTH 18.9 % (11.5-14.5); WHITE BLOOD COUNT 6.5 10^3/ul (4.8-10.8)
[2016-11-14 08:09] LABS: MAGNESIUM 1.9 mg/dl (1.7-2.5); PHOSPHORUS 4.2 mg/dl (2.5-4.9)
[2016-11-14 08:12] LABS: ALBUMIN 2.9 g/dl (3.3-4.9); ALBUMIN/GLOBULIN RATIO 0.61; BILIRUBIN,INDIRECT 0.3 mg/dl (0-1.1); BILIRUBIN,TOTAL 0.3 mg/dl (0.2-1.3); CALCIUM 8.1 mg/dl (8.4-10.2); CREATININE 0.59 mg/dl (0.61-1.24); POTASSIUM 4.4 mmol/L (3.5-5.1); TOTAL PROTEIN 7.6 g/dl (6.1-8.1)
[2016-11-14] MEDS: FAMOTIDINE 20 MG TAB PO SCH (08:28)
[2016-11-14] MEDS: FERROUS SULFATE (EC) 325 MG TAB PO SCH (08:28)
[2016-11-14] MEDS: SALMETEROL/FLUTICASONE 250/50 INHA INH SCH ×2 (08:28→21:19)
[2016-11-14] MEDS: DOCUSATE SODIUM 100 MG CAP PO SCH (08:28)
[2016-11-14] MEDS: POTASSIUM CHLORIDE (SR) 20 MEQ TAB PO SCH ×2 (08:28→21:19)
[2016-11-14] MEDS: ALBUTEROL/IPRATROPIUM (NEB) 3 ML AMP HHN SCH ×3 (08:39→17:57)
[2016-11-14 09:42] LABS: MEAN PLATELET VOLUME 12.8 fl (7.4-10.4)
[2016-11-14 09:49] LABS: PLATELET COUNT 136 10^3/UL (140-415)
--- NOTE | 2016-11-14 11:54 | PN ---
Date/Time of Note Date/Time of Note DATE: 11/14/16 TIME: 11:30 Assessment/Plan VTE Prophylaxis VTE Prophylaxis Intervention: SCD's Lines/Catheters IV Catheter Type (from Nrs): Saline Lock Urinary Cath still in place: No Assessment/Plan Assessment/Plan 81-year-old male with: 1. Respiratory distress, pulmonary edema and significant volume overload and anasarca secondary to diastolic congestive heart failure exacerbation, acute on chronic. Renal function remains stable. Well Diuresed with Bumex drip Follow up BMP in AM. 2. Chronic moderate pulmonary fibrosis and chronic hypoxemia. Continue supplemental oxygen and current medications including Advair and nebulizer treatments. 3. Hypertension. Continue Diuretics as tolerated. Start po Bumex 4. Hypothyroidism. Continue home medications. Prophylaxis: Sequential compression devices to lower extremity for DVT prophylaxis as tolerated. Proton pump inhibitors for GI prophylaxis. Disposition. D/c plan in 24 hrs on po Bumex. Subjective 24 Hr Interval Summary Free Text/Dictation Patient feels better and able to sleep on his side now On 2L NC now Diuresed well and weight coming down Still with edema currently PT eval Exam/Review of Systems Vital Signs Vitals Vital Signs Date Time Temp Pulse Resp B/P Pulse Ox O2 Delivery O2 Flow Rate FiO2 11/14/16 08:40 105 20 96 Nasal Cannula 2.0 11/14/16 08:31 98.1 93/58 11/12/16 20:50 28 Intake and Output 11/13/16 11/13/16 11/14/16 15:00 23:00 07:00 Intake Total 360 ml 560 ml 200 ml Output Total 900 ml 700 ml Balance -540 ml 560 ml -500 ml Exam Constitutional: alert, oriented, well developed Cardiovascular: nl pulses, regular rate and rhythm Gastrointestinal: non-tender, soft Musculoskeletal: swelling (anasarca improved ) Extremities: normal pulses 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: 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, nl mental status, nl speech, nl strength Results Result Diagram: 11/14/16 0656 11/14/16 0656 Results 24 hrs Laboratory Tests Test 11/14/16 06:56 White Blood Count 6.5 Red Blood Count 3.29 L Hemoglobin 9.0 L Hematocrit 30.1 L Mean Corpuscular Volume 91.5 Mean Corpuscular Hemoglobin 27.4 L Mean Corpuscular Hemoglobin Concent 29.9 L Red Cell Distribution Width 18.9 H Platelet Count 136 #L Mean Platelet Volume 12.8 H Neutrophils % 58.0 Lymphocytes % 24.4 Monocytes % 15.2 H Eosinophils % 1.5 Basophils % 0.6 Nucleated Red Blood Cells % 0.0 Neutrophils # 3.8 Lymphocytes # 1.6 Monocytes # 1.0 H Eosinophils # 0.1 Basophils # 0.0 Nucleated Red Blood Cells # 0.0 Sodium Level 141 Potassium Level 4.4 Chloride Level 96 L Carbon Dioxide Level 40 H Anion Gap 9 Blood Urea Nitrogen 12 Creatinine 0.59 L Glucose Level 77 Calcium Level 8.1 L Phosphorus Level 4.2 Magnesium Level 1.9 Total Bilirubin 0.3 Direct Bilirubin 0.00 Indirect Bilirubin 0.3 Aspartate Amino Transf (AST/SGOT) 21 Alanine Aminotransferase (ALT/SGPT) 24 Alkaline Phosphatase 143 H Total Protein 7.6 Albumin 2.9 L Globulin 4.70 H Albumin/Globulin Ratio 0.61 Medications Medications Current Medications Docusate Sodium (Colace) 100 mg DAILY PO Last administered on 11/14/16 08:28; Admin Dose 100 MG; Start 11/13/16 at 09:00 Famotidine (Pepcid) 20 mg DAILY PO Last administered on 11/14/16 08:28; Admin Dose 20 MG; Start 11/13/16 at 09:00 Ferrous Sulfate (Ferrous Sulfate (Ec)) 325 mg DAILY PO Last administered on 08:28; Admin Dose 325 MG; Start 11/13/16 at 09:00 Potassium Chloride (Klor-Con 20) 20 meq BID PO Last administered on 11/14/16 08:28; Admin Dose 20 MEQ; Start 11/13/16 at 09:00 Salmeterol Xinafoate/ Fluticasone (Advair 250/50 Diskus) 1 inh BID INH Last administered on 11/14/16 08:28; Admin Dose 1 INH; Start 11/13/16 at 09:00 Ondansetron HCl (Zofran Inj) 4 mg Q6H PRN IV NAUSEA AND/OR VOMITING; Start 04/21 at 00:30 Acetaminophen (Tylenol Tab) 650 mg Q6H PRN PO PAIN LEVEL 1-3 OR FEVER; Start at 00:30 Morphine Sulfate (morphine) 2 mg Q4H PRN IV PAIN LEVEL 7-10; Start 11/13/16 at 00:30 Magnesium Hydroxide (Milk Of Mag) 30 ml DAILY PRN PO CONSTIPATION; Start at 00:30 Bisacodyl (Dulcolax Supp) 10 mg DAILY PRN [place] CONSTIPATION; Start 11/13/16 at 00 :30 Procedures Procedures PROCEDURE: CT Chest without contrast. CLINICAL INDICATION: Chronic interstitial changes. TECHNIQUE: Volumetrically acquired images of the thorax without intravenous contrast were reformatted in the axial, sagittal, and coronal planes. Radiation dose: CTDIvol (mGy) = 11.8; total DLP mGy-cm = 3/94. One or more of the following radiation dose techniques were used: -Automated exposure control. -Adjust of the mA and/or kV according to patient size. -Use of iterative reconstruction technique. COMPARISON: 10/17/2015. FINDINGS: Cardiomegaly without pericardial effusion. There are coronary artery, aortic valve leaflet, mitral annulus, and atherosclerotic aortic calcifications. There is bilateral supraclavicular and multi compartmental mediastinal lymphadenopathy, likely reactive. Enlargement of the central pulmonary arteries; the main pulmonary artery with a maximal axial diameter 40 mm, suggestive of pulmonary hypertension. Diffuse lower greater than upper subpleural and peribronchovascular fine and coarse reticulation, textured ground-glass parenchymal attenuation, architectural and pleural parenchymal interface distortion, traction bronchiectasis and bronchiolectasis, and honeycombing in keeping with a chronic fibrosing interstitial pneumonia. 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 Diffuse ground-glass changes identified in the bilateral lung mccall, concerning for superimposed edema in the context of trace effusions, small ascites, and diffuse overlying anasarca. Supraclavicular and multi compartmental mediastinal lymphadenopathy, likely reactive. Enlargement of the central pulmonary arteries, consistent with pulmonary hypertension, likely on the basis of chronic lung disease. JUANITA RONQUILLO Nov 14, 2016 11:40
[2016-11-15] VITALS (10 sets, daily range): BP systolic 89–120; BP diastolic 50–70; PULSE 70–107; RESP 18–20
[2016-11-15] MEDS: ALBUTEROL/IPRATROPIUM (NEB) 3 ML AMP HHN SCH ×3 (00:17→17:29)
[2016-11-15] MEDS: LEVOTHYROXINE 150 MCG TAB PO SCH (05:30)
[2016-11-15 08:06] LABS: ADD SCAN DIFF NO
[2016-11-15 08:15] LABS: BASOPHIL # 0.1 10^3/ul (0.0-0.1); BASOPHILS % 0.8 % (0.0-2.0); EOSINOPHILS # 0.1 10^3/ul (0.0-0.5); EOSINOPHILS % 1.9 % (0.0-7.0); HEMATOCRIT 29.4 % (42.0-52.0); HEMOGLOBIN 8.7 g/dl (14.0-18.0); LYMPHOCYTES # 1.7 10^3/ul (0.8-2.9); LYMPHOCYTES % 27.7 % (15.0-51.0); MEAN CORPUSCULAR HEMOGLOBIN 27.3 pg (29.0-33.0); MEAN CORPUSCULAR HGB CONC 29.6 g/dl (32.0-37.0); MEAN CORPUSCULAR VOLUME 92.2 fl (82.0-101.0); MEAN PLATELET VOLUME 12.7 fl (7.4-10.4); NEUTROPHIL # 3.4 10^3/ul (1.6-7.5); NEUTROPHILS % 53.7 % (39.0-77.0); PLATELET COUNT 123 10^3/UL (140-415); RED BLOOD COUNT 3.19 10^6/ul (4.70-6.10); RED CELL DISTRIBUTION WIDTH 18.7 % (11.5-14.5); WHITE BLOOD COUNT 6.2 10^3/ul (4.8-10.8)
[2016-11-15 08:45] LABS: ALBUMIN 3.2 g/dl (3.3-4.9); ALBUMIN/GLOBULIN RATIO 0.69; BILIRUBIN,INDIRECT 0.3 mg/dl (0-1.1); BILIRUBIN,TOTAL 0.3 mg/dl (0.2-1.3); CALCIUM 8.1 mg/dl (8.4-10.2); CREATININE 0.52 mg/dl (0.61-1.24); MAGNESIUM 1.9 mg/dl (1.7-2.5); PHOSPHORUS 3.7 mg/dl (2.5-4.9); POTASSIUM 4.8 mmol/L (3.5-5.1); TOTAL PROTEIN 7.8 g/dl (6.1-8.1)
[2016-11-15 08:47] LABS: MONOCYTES % 15.4 % (0.0-11.0)
--- NOTE | 2016-11-15 08:52 | RADRPT ---
PROCEDURE: XR Chest. CLINICAL INDICATION: Follow-up pulmonary edema. TECHNIQUE: PA and Lateral views of the chest were obtained. COMPARISON: Chest x-ray 11/12/2078 04:00 p.m. FINDINGS: The soft tissues are normal. There are degenerative osteophytes in the thoracic spine. The heart i s enlarged. The cardiomediastinal silhouette and hilar structures are normal. The pulmonary vascula ture is obscured by infiltrate. There are vascular calcifications and ectasia of the left-sided aort a. The left diaphragm is elevated. The interstitial and alveolar infiltrates seen on the earlier st udy have improved slightly. Small pleural effusions are not excluded. IMPRESSION: 1. There has been slight improvement of the bilateral interstitial and nodular/ground-glass infiltra marleen as compared to 11/12/2016. A pneumonia or resolving pulmonary edema could present this fashion. 2. 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 RPTAT:AAJJ Physician Anders Date Time Electronically viewed and signed by Physician Anders on 11/15/2016 08:52 RANDY/
[2016-11-15] MEDS: FAMOTIDINE 20 MG TAB PO SCH (09:04)
[2016-11-15] MEDS: POTASSIUM CHLORIDE (SR) 20 MEQ TAB PO SCH (09:04)
[2016-11-15] MEDS: DOCUSATE SODIUM 100 MG CAP PO SCH (09:05)
[2016-11-15] MEDS: FERROUS SULFATE (EC) 325 MG TAB PO SCH (09:05)
[2016-11-15] MEDS: SALMETEROL/FLUTICASONE 250/50 INHA INH SCH (09:05)
--- NOTE | 2016-11-15 11:31 | PN ---
Date/Time of Note Date/Time of Note DATE: 11/15/16 TIME: 11:29 Assessment/Plan Lines/Catheters IV Catheter Type (from [facility]): Saline Lock Urinary Cath still in place: No Exam/Review of Systems Vital Signs Vitals Vital Signs Date Time Temp Pulse Resp B/P Pulse Ox O2 Delivery O2 Flow Rate FiO2 11/15/16 08:43 100 22 91 Nasal Cannula 2.0 11/15/16 08:07 97.9 96/59 11/12/16 20:50 28 Intake and Output 11/14/16 11/14/16 11/15/16 15:00 23:00 07:00 Intake Total 900 ml 800 ml Balance 900 ml 800 ml Results Result Diagram: 11/15/1655 11/15/16 0655 Results 24 hrs Laboratory Tests Test 11/15/16 06:55 White Blood Count 6.2 Red Blood Count 3.19 L Hemoglobin 8.7 L Hematocrit 29.4 L Mean Corpuscular Volume 92.2 Mean Corpuscular Hemoglobin 27.3 L Mean Corpuscular Hemoglobin Concent 29.6 L Red Cell Distribution Width 18.7 H Platelet Count 123 L Mean Platelet Volume 12.7 H Neutrophils % 53.7 Lymphocytes % 27.7 Monocytes % 15.4 H Eosinophils % 1.9 Basophils % 0.8 Nucleated Red Blood Cells % 0.0 Neutrophils # 3.4 Lymphocytes # 1.7 Monocytes # 1.0 H Eosinophils # 0.1 Basophils # 0.1 Nucleated Red Blood Cells # 0.0 Sodium Level 139 Potassium Level 4.8 Chloride Level 98 Carbon Dioxide Level 38 H Anion Gap 8 Blood Urea Nitrogen 13 Creatinine 0.52 L Glucose Level 70 Calcium Level 8.1 L Phosphorus Level 3.7 Magnesium Level 1.9 Total Bilirubin 0.3 Direct Bilirubin 0.00 Indirect Bilirubin 0.3 Aspartate Amino Transf (AST/SGOT) 23 Alanine Aminotransferase (ALT/SGPT) 23 Alkaline Phosphatase 143 H Total Protein 7.8 Albumin 3.2 L Globulin 4.60 H Albumin/Globulin Ratio 0.69 Medications Medications Current Medications Docusate Sodium (Colace) 100 mg DAILY PO Last administered on 11/15/16 09:05; Admin Dose 100 MG; Start 11/13/16 at 09:00 Famotidine (Pepcid) 20 mg DAILY PO Last administered on 11/15/16 09:04; Admin Dose 20 MG; Start 11/13/16 at 09:00 Ferrous Sulfate (Ferrous Sulfate (Ec)) 325 mg DAILY PO Last administered on 09:05; Admin Dose 325 MG; Start 11/13/16 at 09:00 Potassium Chloride (Klor-Con 20) 20 meq BID PO Last administered on 11/15/16 09:04; Admin Dose 20 MEQ; Start 11/13/16 at 09:00 Salmeterol Xinafoate/ Fluticasone (Advair 250/50 Diskus) 1 inh BID INH Last administered on 11/15/16 09:05; Admin Dose 1 INH; Start 11/13/16 at 09:00 Ondansetron HCl (Zofran Inj) 4 mg Q6H PRN IV NAUSEA AND/OR VOMITING; Start 04/21 at 00:30 Acetaminophen (Tylenol Tab) 650 mg Q6H PRN PO PAIN LEVEL 1-3 OR FEVER; Start at 00:30 Morphine Sulfate (morphine) 2 mg Q4H PRN IV PAIN LEVEL 7-10; Start 11/13/16 at 00:30 Magnesium Hydroxide (Milk Of Mag) 30 ml DAILY PRN PO CONSTIPATION; Start at 00:30 Bisacodyl (Dulcolax Supp) 10 mg DAILY PRN [place] CONSTIPATION; Start 11/13/16 at 00 :30 Procedures Procedures PROCEDURE: XR Chest. CLINICAL INDICATION: Follow-up pulmonary edema. TECHNIQUE: PA and Lateral views of the chest were obtained. COMPARISON: Chest x-ray 11/12/2078 04:00 p.m. FINDINGS: The soft tissues are normal. There are degenerative osteophytes in the thoracic spine. The heart is enlarged. The cardiomediastinal silhouette and hilar structures are normal. The pulmonary vasculature is obscured by infiltrate. There are vascular calcifications and ectasia of the left-sided aorta. The left diaphragm is elevated. The interstitial and alveolar infiltrates seen on the earlier study have improved slightly. Small pleural effusions are not excluded. IMPRESSION: 1. There has been slight improvement of the bilateral interstitial and nodular/ ground-glass infiltrates as compared to 11/12/2016. A pneumonia or resolving pulmonary edema could present this fashion. 2. 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 RPTAT:AAJJ JUANITA RONQUILLO Nov 15, 2016 11:31
--- NOTE | 2016-11-15 12:15 | PDOCDIS ---
Discharge Instructions CONDITION Patient Condition: Stable HOME CARE INSTRUCTIONS: Diet Instructions: Reduced SodiumSpecial Diet: cardiac ACTIVITY: Activity Restrictions: Slowly Increase Activity FOLLOW UP/APPOINTMENTS Appointments MARY escalera Follow up with PCP within 1 week Follow up with Cardiology, Dr Davidson within 1 to 2 weeks Follow up with Home Health RN Resume Home O2 2L NC JUANITA RONQUILLO Nov 15, 2016 12:15
[2016-11-15] MEDS ORDERED: BUME1TAB18 PO (12:17)
[2016-11-15] MEDS ORDERED: BUMETANIDE 1 MG TAB PO SCH (12:30)
== END 2016-11-15 18:00 | disposition home health service (06) | DRG 293 ==
LOC: E/R 19:36 → MS4 23:15 → OBSVTOIN 11-14 11:30
PROVIDERS: ADMIT Internal Medicine; ATTEND Internal Medicine
DX: I11.0 Hypertensive heart disease with heart failure (principal); J84.10 Pulmonary fibrosis, unspecified; Z99.81 Dependence on supplemental oxygen; I50.33 Acute on chronic diastolic (congestive) heart failure; E03.9 Hypothyroidism, unspecified; R09.02 Hypoxemia
CPT/HCPCS: 36415; 71010; 71020; 71250; 80053; 80061; 82550; 82553; 83735; 83880; 84100; 84439; 84443; 84484; 85025; 85610; 85730; 87081; 93005; 94640; 94664; 96374; G0378; J1940

== ENCOUNTER 2016-12-27 23:33 | Inpatient (IN) | payer OTHER ==
[~2016-12-27] VITALS: Ht 177.8 cm; Wt 69.9 kg
[~2016-12-27 23:33] MED LIST changes: +BUME1TAB18 PO; -FURO-110 PO; -LAS20 PO; -POTA-57 PO
[2016-12-28] VITALS (10 sets, daily range): BP systolic 91–102; BP diastolic 57–73; PULSE 91–127; RESP 18–19; TEMP 98.6; Ht 177.8 cm; Wt 69.9 kg
[2016-12-28 00:26] LABS: Arterial Base Excess 7.4 mmol/L (-3.0-3); Arterial COHb 1.4 % (0.0-3.0); Arterial Fraction of Oxyhgb 95.9 % (93.0-99.0); Arterial HCO3 33.8 mmol/L (22.0-26.0); Arterial MetHb 0.3 % (0.0-1.5); Arterial Total Hemglobin 11.9 g/dl (12.0-18.0); MODE NASAL CANNULA
--- NOTE | 2016-12-28 00:39 | RADRPT ---
PROCEDURE: XR Chest. CLINICAL INDICATION: Dyspnea. TECHNIQUE: Single frontal view of the chest. COMPARISON: 11/14/2016. FINDINGS: Decreased lung inflation over interval. Likely extensive changes of bronchiectasis throughout the b ilateral lungs. Increased bilateral lung base air space disease with pulmonary vascular congestion. Atelectasis versus airspace disease is greater at the left lung base. There is cardiomegaly. No signs of pleural fluid or pneumothorax are seen. The osseous structures and soft tissues are unremar kable. IMPRESSION: Mild to moderate failure superimposed on extensive changes of bronchiectasis within the bilateral jules ngs. RPTAT: UU Physician Bruce Date Time Electronically viewed and signed by Physician Bruce on 12/28/2016 00:39 RS/
[2016-12-28] MEDS ORDERED: FUROSEMIDE 20 MG INJ IV ONE (00:46)
[2016-12-28] MEDS ORDERED: morphine 4 MG/ML VIAL IV ONE (00:46)
[2016-12-28 00:56] LABS: BASOPHIL # 0.1 10^3/ul (0.0-0.1); BASOPHILS % 0.9 % (0.0-2.0); EOSINOPHILS # 0.1 10^3/ul (0.0-0.5); EOSINOPHILS % 0.9 % (0.0-7.0); HEMATOCRIT 35.9 % (42.0-52.0); HEMOGLOBIN 10.9 g/dl (14.0-18.0); LYMPHOCYTES # 1.7 10^3/ul (0.8-2.9); LYMPHOCYTES % 22.1 % (15.0-51.0); MEAN CORPUSCULAR HEMOGLOBIN 28.2 pg (29.0-33.0); MEAN CORPUSCULAR HGB CONC 30.4 g/dl (32.0-37.0); MEAN PLATELET VOLUME 11.2 fl (7.4-10.4); MONOCYTE # 1.1 10^3/ul (0.3-0.9); MONOCYTES % 14.3 % (0.0-11.0); NEUTROPHIL # 4.7 10^3/ul (1.6-7.5); NEUTROPHILS % 61.3 % (39.0-77.0); NUCLEATED RED BLOOD CELLS% 0.3 /100WBC (0.0-0.0); PLATELET COUNT 144 10^3/UL (140-415); RED BLOOD COUNT 3.86 10^6/ul (4.70-6.10); RED CELL DISTRIBUTION WIDTH 19.8 % (11.5-14.5); WHITE BLOOD COUNT 7.7 10^3/ul (4.8-10.8)
[2016-12-28 01:02] LABS: ALANINE AMINOTRANSFERASE 17 IU/L (13-69); ALBUMIN 3.4 g/dl (3.3-4.9); ALBUMIN/GLOBULIN RATIO 0.55; ALKALINE PHOSPHATASE 181 IU/L (42-121); ANION GAP 17 (8-16); ASPARTATE AMINO TRANSFERASE 29 IU/L (15-46); BILIRUBIN,INDIRECT 0.5 mg/dl (0-1.1); BILIRUBIN,TOTAL 0.5 mg/dl (0.2-1.3); BLOOD UREA NITROGEN 19 mg/dl (7-20); CALCIUM 8.5 mg/dl (8.4-10.2); CHLORIDE 86 mmol/L (97-110); CREATININE 0.77 mg/dl (0.61-1.24); GLUCOSE 149 mg/dl (70-220); POTASSIUM 4.1 mmol/L (3.5-5.1); SODIUM 139 mmol/L (135-144); TOTAL PROTEIN 9.5 g/dl (6.1-8.1)
[2016-12-28 01:05] LABS: INR 1.32; PROTIME 16.5 Sec (12.2-14.2); PT RATIO 1.3
[2016-12-28 01:06] LABS: PARTIAL THROMBOPLASTIN TIME 32.9 Sec (25.0-35.0)
[2016-12-28 01:13] LABS: B-TYPE NATRIURETIC PEPTIDE 8790 PG/ML (0-450)
[2016-12-28 01:19] LABS: TROPONIN-I < 0.012 ng/ml (0.00-0.12)
[2016-12-28 01:21] LABS: CARBON DIOXIDE 40 mmol/L (21-31)
--- NOTE | 2016-12-28 01:34 | ERA ---
ER Documentation Chief Complaint Date/Time DATE: 12/28/16 TIME: 01:33 Chief Complaint SOB X 1 WK, WORSE TODAY. SWOLLEN ABD. POOR APPETITE. CHF/PULMFIBROSIS HPI 81-year-old male with shortness breath while he was worse today. Patient has history of CHF and pulmonary fibrosis. Complains of swollen abdomen and swollen legs. No nausea no vomiting no chills. No other current complaints. ROS All systems reviewed and are negative except as per history of present illness. Medications Home Meds Active Scripts Bumetanide* (Bumetanide*) 1 Mg Tablet, 1 MG PO DAILY for 30 Days, TAB 3 Refills Prov:James RONQUILLOPRIYAKHAI Negron 11/15/16 Salmeterol Xinaf/Fluticasone* (Advair*) 250-50 Diskus Inhaler, 1 INH INH BID, # 1 3 Refills Prov:YGMyeshaDerekPRIYAKHAI Negron 07/06/16 Ipratropium-Albuterol (Ipratropium-Albuterol) 0.5-3 Mg/3 Ml Ampul.neb, 3 ML HHN Q8H RESP THERAPY for 30 Days Prov:YGMyeshaDerekPRIYAKHAI Negron 10/19/15 Reported Medications Famotidine* (Famotidine*) 20 Mg Tablet, 20 MG PO DAILY, #30 TAB 10/27/16 Umeclidinium Ryegate (Incruse Ellipta) 62.5 Mcg Blst.w.dev, 62.5 MCG IH 1PUFF DAILY 10/27/16 Albuterol Sulfate* (Ventolin HFA*) 18 Gm Hfa.aer.ad, 2 PUFF INHALATION Q4H, #1 INHALER 10/27/16 Docusate Sodium* (Docusate Sodium*) 100 Mg Capsule, 100 MG PO DAILY, #30 CAP 07/02/16 Ferrous Sulfate* (Ferrous Sulfate*) 325 Mg Tabec, 325 MG PO DAILY, TAB 07/02/16 Fluticasone Propionate* (Fluticasone Propionate* Nasal) 50 Mcg/Dumas - 16 Gm Dumas.susp, 1 SPRAY NASAL DAILY Y for PRN, #1 BOTTLE TO EACH NOSTRIL 01/14/16 Levothyroxine Sodium* (Levothyroxine Sodium*) 150 Mcg Tablet, 150 MCG PO BEFORE BREAKFAST, #30 TAB 8/11/16 Allergies Allergies: Coded Allergies: No Known Allergy (Unverified , 12/28/16) PMhx/Soc Medical and Surgical Hx: pt denies Surgical Hx History of Surgery: No Anesthesia Reaction: No Hx 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 Disorder: No Hx Respiratory Disorders: Yes (hx of pulmo edema) Hx Cardiac Disorders: Yes (hx of CHF) Hx Psychiatric Problems: No Hx Miscellaneous Medical Probl: Yes (hx of thyroid ) Hx Alcohol Use: Yes Hx Substance Use: Yes Hx Tobacco Use: Yes Smoking Status: Never smoker Physical Exam Vitals Vital Signs Date Time Temp Pulse Resp B/P Pulse Ox O2 Delivery O2 Flow Rate FiO2 12/28/16 00:16 Nasal Cannula 3 12/28/16 00:16 Nasal Cannula 3.0 12/28/16 00:16 97.5 120 22 125/93 100 Nasal Cannula 3.0 12/27/16 23:38 98.5 141 24 91/74 71 Physical Exam Const: [] Head: Atraumatic Eyes: Normal Conjunctiva ENT: Normal External Ears, Nose and Mouth. Neck: Full range of motion..~ No meningismus. Resp: Clear to auscultation bilaterally Cardio: Regular rate and rhythm, no murmurs Abd: Soft, non tender, non distended. Normal bowel sounds Skin: No petechiae or rashes Back: No midline or flank tenderness Ext: No cyanosis, or edema Neur: Awake and alert Psych: Normal Mood and Affect Result Diagram: 12/28/16 0010 12/28/16 0010 Results 24 hrs Laboratory Tests Test 12/27/16 23:47 12/28/16 00:10 Blood Gas Specimen Source Blood arterial Arterial Blood Date Drawn 12/28/2016 12:14:35 AM Arterial Blood pH (Temp corrected) 7.392 Arterial Blood pCO2 (Temp correct) 56.9mmhg Arterial Blood pO2 (Temp corrected) 104.0mmHG Arterial Blood HCO3 33.8mmol/L Arterial Blood Base Excess 7.4mmol/L Arterial Blood Oxygen Saturation 97.6mmHG Juarez Test N/A Arterial Blood Gas Puncture Site Right Brachial Arterial Blood Carboxyhemoglobin 1.4% Arterial Blood Methemoglobin 0.3% Blood Gas A-a O2 Differential 43.0mmHg Oxyhemoglobin Percent 95.9% Total Hemoglobin 11.9g/dl Blood Gas Temperature 37.0C Blood Gas Modality NASAL CANNULA FiO2 30.0% Blood Gas Notified Whom AA Blood Gas Notified Time 12/28/2016 12:26:24 AM White Blood Count 7.710^3/ul Red Blood Count 3.8610^6/ul Hemoglobin 10.9g/dl Hematocrit 35.9% Mean Corpuscular Volume 93.0fl Mean Corpuscular Hemoglobin 28.2pg Mean Corpuscular Hemoglobin Concent 30.4g/dl Red Cell Distribution Width 19.8% Platelet Count 31368^3/UL Mean Platelet Volume 11.2fl Neutrophils % 61.3% Lymphocytes % 22.1% Monocytes % 14.3% Eosinophils % 0.9% Basophils % 0.9% Nucleated Red Blood Cells % 0.3/100WBC Neutrophils # 4.710^3/ul Lymphocytes # 1.710^3/ul Monocytes # 1.110^3/ul Eosinophils # 0.110^3/ul Basophils # 0.110^3/ul Nucleated Red Blood Cells # 0.010^3/ul Prothrombin Time 16.5Sec Prothrombin Time Ratio 1.3 INR International Normalized Ratio 1.32 Activated Partial Thromboplast Time 32.9Sec Sodium Level 139mmol/L Potassium Level 4.1mmol/L Chloride Level 86mmol/L Carbon Dioxide Level 40mmol/L Anion Gap 17 Blood Urea Nitrogen 19mg/dl Creatinine 0.77mg/dl Glucose Level 149mg/dl Calcium Level 8.5mg/dl Total Bilirubin 0.5mg/dl Direct Bilirubin 0.00mg/dl Indirect Bilirubin 0.5mg/dl Aspartate Amino Transf (AST/SGOT) 29IU/L Alanine Aminotransferase (ALT/SGPT) 17IU/L Alkaline Phosphatase 181IU/L Troponin I < 0.012ng/ml B-Type Natriuretic Peptide 8790PG/ML Total Protein 9.5g/dl Albumin 3.4g/dl Globulin 6.10g/dl Albumin/Globulin Ratio 0.55 Current Medications Medications (Trade) Dose Ordered Sig/Jose Daniel Route PRN Reason Start Time Stop Time Status Last Admin Dose Admin Morphine Sulfate (morphine) 4 mg ONCE ONCE IV 12/28/16 00:46 12/28/16 00:47 DC 12/28/16 00:51 Furosemide (Lasix) 60 mg ONCE ONCE IV 12/28/16 00:46 12/28/16 00:47 DC 12/28/16 00:51 Procedures/MDM EKG: Rate/Rhythm: [Normal Sinus Rhythm] QRS, ST, T-waves: [No changes consistent w/ acute ischemia] Impression: [No evidence of ischemia or arrhythmia] Chest X-ray 1V Interpreted by me: Soft Tissue: No acute abnormalities Bones: No acute abnormalities Mediastinum/Cardiac Silhouette/Lungs: Increased interstitial fluid markings. Cardiomegaly. Impression: CHF Patient's heart failure symptoms is concerning for acute decompensation and will require inpatient workup and monitoring. Further w/u for ischemia, arrhythmia, PE or dissection will be deferred to the inpatient team. Accepting Care Team: Current data and ongoing care discussed. Time: 1:30 Primary Provider: yg Consulting: [XOXOXO] Outstanding Data: none Departure Diagnosis: Primary Impression: CHF (congestive heart failure) Qualified Code: I50.9 - Congestive heart failure, unspecified congestive heart failure chronicity, unspecified congestive heart failure type Condition: Serious JAMES SPICER Dec 28, 2016 01:34
[2016-12-28] MEDS ORDERED: SPIR25TA PO (01:37)
[2016-12-28] MEDS ORDERED: ONDANSETRON 4 MG INJ IV PRN (03:00)
[2016-12-28] MEDS ORDERED: morphine 2 MG INJ IV PRN (03:00)
[2016-12-28] MEDS ORDERED: NITROGLYCERIN (SL) 0.4 MG TAB SL PRN (03:00)
[2016-12-28] MEDS ORDERED: MAGNESIUM HYDROXIDE 30ML CUP PO PRN (03:00)
[2016-12-28] MEDS ORDERED: NACL 0.9% 3 ML SYG IV SCH (03:00)
[2016-12-28] MEDS ORDERED: BISACODYL 10 MG SUPP PR PRN (03:00)
[2016-12-28] MEDS ORDERED: ACETAMINOPHEN 325 MG TAB PO PRN (03:00)
[2016-12-28] MEDS ORDERED: FLUTICASONE 0.05% 16 GM NAS SPRAY NASAL PRN (03:00)
[2016-12-28] MEDS ORDERED: DOCUSATE SODIUM 100 MG CAP PO PRN (03:00)
[2016-12-28] MEDS ORDERED: BUMETANIDE 6 MG in DEXTROSE 5% 36 ML IV ONE (03:30)
[2016-12-28] MEDS ORDERED: ALBUTEROL/IPRATROPIUM (NEB) 3 ML AMP HHN PRN (03:30)
[2016-12-28] MEDS: LEVOTHYROXINE 150 MCG TAB PO SCH (07:50)
[2016-12-28] MEDS: SPIRONOLACTONE 25 MG TAB PO SCH ×2 (09:00→21:38)
[2016-12-28] MEDS ORDERED: ENOXAPARIN 40 MG/0.4 ML SYG SC SCH (09:00)
[2016-12-28] MEDS: ALBUTEROL/IPRATROPIUM (NEB) 3 ML AMP HHN SCH ×3 (09:01→23:33)
[2016-12-28 09:15] LABS: CK-MB 1.44 ng/ml (0.0-2.4); TROPONIN-I < 0.012 ng/ml (0.00-0.12)
[2016-12-28 09:22] LABS: CREATINE KINASE < 20 IU/L (23-200)
[2016-12-28] MEDS: FAMOTIDINE 20 MG TAB PO SCH (09:31)
[2016-12-28] MEDS: FERROUS SULFATE (EC) 325 MG TAB PO SCH (09:31)
[2016-12-28] MEDS: SALMETEROL/FLUTICASONE 250/50 INHA INH SCH ×2 (09:32→21:37)
[2016-12-28] MEDS: DOCUSATE SODIUM 100 MG CAP PO SCH (09:32)
--- NOTE | 2016-12-28 15:35 | HP ---
Date/Time of Note Date/Time of Note DATE: 12/28/16 TIME: 14:57 Assessment/Plan VTE Prophylaxis VTE Prophylaxis Intervention: LMWH (Full anticoagulation) Lines/Catheters [facility] Saline Lock Urinary Cath still in place: No Assessment/Plan Assessment/Plan 81-year-old male; 1. CHF exacerbation, new onset A. fib, unclear if patient has progressive systolic dysfunction on top of diastolic dysfunction. He has significant anasarca. He will have diuresis with Bumex drip today. He is in atrial fibrillation, heart rate is more or less controlled, cardiology consult pending, repeat 2D echocardiogram ordered. Replete electrolytes as needed Cardiac enzymes negative 2, 8 hours apart 2. Atrial fibrillation, no previous report. 2D echocardiogram pending to see if patient has progressing valvular disease. Check thyroid function testing Anticoagulation with Lovenox for stroke prophylaxis Follow-up further cardiology recommendations 3. Hypertension: Continue current medications 4. Hypothyroidism: Check thyroid function testing, on levothyroxine 5. Moderate pulmonary fibrosis at least, oxygen dependent with chronic hypoxemia. Continue Advair and nebulizer treatment and oxygen supplement. Prophylaxis: Pepcid for GI prophylaxis, patient on full anticoagulation in setting of A. fib Disposition: Cardiology evaluation, repeat 2D echocardiogram, diuresis. HPI/ROS Admit Date/Time Admit Date/Time Dec 28, 2016 at 01:31 Hx of Present Illness Chief complaint: Shortness of breath, dyspnea on exertion History of presenting illness: This is a 81-year-old male with known pulmonary fibrosis and chronic hypoxemia oxygen dependent 3 L nasal cannula, congestive heart failure diastolic so far who presented to the emergency department again with episode of for volume overload anasarca, paroxysmal nocturnal dyspnea, orthopnea and dyspnea on exertion, he also was noted to have increased abdominal girth. Patient in the emergency department did receive Lasix 80 mg IV 1 and was subsequently started on a Bumex drip today. Also upon presentation this time he has been in atrial fibrillation. Patient has had these recurrent episodes of volume overload more often recently even while being on Bumex. Cardiology, Dr. Murphy, has been consulted. He will be seeing the patient he agrees to repeating the echocardiogram at this time. Patient again being diuresed, I will place him on treatment dose of Lovenox. Cardiac enzymes are negative. Patient reports shortness of breath, dyspnea on exertion, paroxysmal nocturnal orthopnea for 24 hours prior to presentation. Today he feels much better post diuresis. ROS Subjective hx not possible: other (Frisian-speaking) Eyes: no complaints Respiratory: no complaints Cardiovascular: edema (Anasarca), orthopenea, paroxysmal nocturnal dyspnea Gastrointestinal: other (Increased abdominal girth) Genitourinary: no complaints Musculoskeletal: no complaints Skin: no complaints Neurologic: no complaints Psychological: no complaints PMH/Family/Social Past Medical History Pulmonary fibrosis Congestive heart failure, as of June 2016 EF of 65% so mostly diastolic Multiple episodes of CHF exacerbation and anasarca Chronic hypoxemia oxygen dependent 2-3 L nasal cannula Moderate aortic stenosis Medical History: congestive heart failure, hypertension, hypothyroid Past Surgical History Status post enucleation of right eye, 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 Social History Alcohol Use: none Smoking Status: Former smoker Drug Use: none Exam/Review of Systems Vital Signs Vitals Vital Signs Date Time Temp Pulse Resp B/P Pulse Ox O2 Delivery O2 Flow Rate FiO2 12/28/16 12:24 104 12/28/16 11:23 98.7 99/68 92 12/28/16 09:05 3.0 32 12/28/16 08:49 Nasal Cannula 12/28/16 07:05 18 Exam Constitutional: alert, frail, oriented Respiratory: diminished breath sounds (Bases bilaterally), other (On 2 to 3 L nasal cannula) Cardiovascular: irregular rhythm (Atrial fibrillation) Gastrointestinal: non-tender, soft Musculoskeletal: swelling (Diffuse anasarca up to abdominal area) Extremities: normal pulses, pitting pedal edema (All the way up to the abdomen) 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: PARTY CHIEF II-XII intact, nl mental status, other (Generalized weakness) Labs Result Diagram: 12/28/16 0010 12/28/16 0010 Medications Medications See medication reconciliation for outpatient medications Current Medications Docusate Sodium (Colace) 100 mg DAILY PO Last administered on 12/28/16 09:32; Admin Dose 100 MG; Start 12/28/16 at 09:00 Famotidine (Pepcid) 20 mg DAILY PO Last administered on 12/28/16 09:31; Admin Dose 20 MG; Start 12/28/16 at 09:00 Ferrous Sulfate (Ferrous Sulfate (Ec)) 325 mg DAILY PO Last administered on 09:31; Admin Dose 325 MG; Start 12/28/16 at 09:00 Fluticasone Propionate (Flonase 0.05% Nasal) 1 spray DAILY PRN NASAL PRN; Start 12/28/16 at 03:00 Salmeterol Xinafoate/ Fluticasone (Advair 250/50 Diskus) 1 inh BID INH Last administered on 12/28/16 09:32; Admin Dose 1 INH; Start 12/28/16 at 09:00 Spironolactone (Aldactone) 25 mg BID PO ; Start 12/28/16 at 09:00 Ondansetron HCl (Zofran Inj) 4 mg Q6H PRN IV NAUSEA AND/OR VOMITING; Start at 03:00 Nitroglycerin (Nitroglycerin (Sl Tab) 0.4 Mg) 1 tab Q5M PRN SL CHEST PAIN; Start 12/28/16 at 03:00 Acetaminophen (Tylenol Tab) 650 mg Q6H PRN PO PAIN LEVEL 1-3 OR FEVER; Start at 03:00 Morphine Sulfate (morphine) 2 mg Q4H PRN IV PAIN LEVEL 7-10; Start 12/28/16 at 03:00 Docusate Sodium (Colace) 100 mg Q12H PRN PO CONSTIPATION; Start 12/28/16 at 03: 00 Magnesium Hydroxide (Milk Of Mag) 30 ml DAILY PRN PO CONSTIPATION; Start at 03:00 Bisacodyl (Dulcolax Supp) 10 mg DAILY PRN [place] CONSTIPATION; Start 12/28/16 at 03 :00 Enoxaparin Sodium (Lovenox) 40 mg DAILY SC Last administered on 12/28/16 09:33 ; Admin Dose 40 MG; Start 12/28/16 at 09:00 Procedures Procedures EKG: Atrial fibrillation PROCEDURE: XR Chest. CLINICAL INDICATION: Dyspnea. TECHNIQUE: Single frontal view of the chest. COMPARISON: 11/14/2016. FINDINGS: Decreased lung inflation over interval. Likely extensive changes of bronchiectasis throughout the bilateral lungs. Increased bilateral lung base air space disease with pulmonary vascular congestion. Atelectasis versus airspace disease is greater at the left lung base. There is cardiomegaly. No signs of pleural fluid or pneumothorax are seen. The osseous structures and soft tissues are unremarkable. IMPRESSION: Mild to moderate failure superimposed on extensive changes of bronchiectasis within the bilateral lungs. RPTAT: UU YG,N'DEYE F Dec 28, 2016 15:07
[2016-12-28 16:40] LABS: INR 1.36; PROTIME 16.8 Sec (12.2-14.2); PT RATIO 1.3
[2016-12-28 16:41] LABS: PARTIAL THROMBOPLASTIN TIME 35.1 Sec (25.0-35.0)
--- NOTE | 2016-12-28 17:51 | CONS ---
Date/Time of Note Date/Time of Note DATE: 12/28/16 TIME: 17:44 Assessment/Plan Assessment/Plan Additional Assessment/Plan Acute decompensated diastolic congestive heart failure Mitral and tricuspid valve regurgitation Atrial fibrillation with rapid ventricular rates, improved Pulmonary hypertension Borderline blood pressure -Patient was on diuretic therapy currently blood pressure is borderline. Based on blood pressure over the next 24 hours, would restart diuretic therapy as renal function and blood pressure permits. Patient with new diagnosis of atrial fibrillation. Given his significant risk for thromboembolic events, ideally patient should be on anticoagulation. This was discussed with the patient and family at bedside including benefits and risks and and in agreement. Would start digoxin, check echocardiogram to evaluate LV function and if any worsening valvular pathology. Maintain potassium above 4.0 and magnesium above 2.0. Consultation Date/Type/Reason Admit Date/Time Dec 28, 2016 at 01:31 Type of Consultation: cv Reason for Consultation Shortness of breath and lower extremity edema Hx of Present Illness This is an 81-year-old male with past medical history of diastolic congestive heart failure, pulmonary hypertension with pulmonary fibrosis who presents with worsening shortness of breath over the past few days and lower extremity edema over the past few weeks. Symptoms have been progressing. Patient denies any dizziness or lightheadedness, chest pain or palpitations. Since admission and starting diuretic therapy, shortness of breath has improved. He denies any fevers or chills. He does have a chronic cough and this has not worsened. 12 point review of systems was performed with all pertinent positives and negatives mentioned above and all else is negative Eyes: no complaints Respiratory: no complaints Cardiovascular: edema (Anasarca), orthopenea, paroxysmal nocturnal dyspnea Gastrointestinal: other (Increased abdominal girth) Genitourinary: no complaints Musculoskeletal: no complaints Skin: no complaints Neurologic: no complaints Psychological: no complaints Past Medical History Pulmonary fibrosis Medical History: congestive heart failure, hypertension, hypothyroid Family History Significant Family History: no pertinent family hx Social History Alcohol Use: none Smoking Status: Former smoker Drug Use: none Exam/Review of Systems Vital Signs Vitals Vital Signs Date Time Temp Pulse Resp B/P Pulse Ox O2 Delivery O2 Flow Rate FiO2 12/28/16 16:37 127 12/28/16 15:08 98.6 18 102/73 100 12/28/16 09:05 3.0 32 12/28/16 08:49 Nasal Cannula Exam Family at bedside, mild dyspnea with extensively speaking Constitutional: alert, frail, oriented Head: normocephalic Respiratory: other (Coarse breath sounds bilaterally with scattered crackles) Cardiovascular: irregular rhythm, other (S1-S2 heard), systolic murmur Gastrointestinal: bowel sounds, non-tender, other (No guarding), soft Extremities: edema Results Result Diagram: 12/28/16 0010 12/28/16 0010 Results 24 hrs Laboratory Tests Test 12/27/16 23:47 12/28/16 00:10 12/28/16 08:08 12/28/16 15:59 Blood Gas Specimen Source Blood arterial Arterial Blood Date Drawn 12/28/2016 12:14:35 AM Arterial Blood pH (Temp corrected) 7.392 Arterial Blood pCO2 (Temp correct) 56.9 H Arterial Blood pO2 (Temp corrected) 104.0 H Arterial Blood HCO3 33.8 H Arterial Blood Base Excess 7.4 H Arterial Blood Oxygen Saturation 97.6 Juarez Test N/A Arterial Blood Gas Puncture Site Right Brachial Arterial Blood Carboxyhemoglobin 1.4 Arterial Blood Methemoglobin 0.3 Blood Gas A-a O2 Differential 43.0 H Oxyhemoglobin Percent 95.9 Total Hemoglobin 11.9 L Blood Gas Temperature 37.0 Blood Gas Modality NASAL CANNULA FiO2 30.0 Blood Gas Notified Whom AA Blood Gas Notified Time 12/28/2016 12:26:24 AM White Blood Count 7.7 # Red Blood Count 3.86 #L Hemoglobin 10.9 #L Hematocrit 35.9 #L Mean Corpuscular Volume 93.0 Mean Corpuscular Hemoglobin 28.2 L Mean Corpuscular Hemoglobin Concent 30.4 L Red Cell Distribution Width 19.8 H Platelet Count 144 Mean Platelet Volume 11.2 H Neutrophils % 61.3 Lymphocytes % 22.1 Monocytes % 14.3 H Eosinophils % 0.9 Basophils % 0.9 Nucleated Red Blood Cells % 0.3 H Neutrophils # 4.7 Lymphocytes # 1.7 Monocytes # 1.1 H Eosinophils # 0.1 Basophils # 0.1 Nucleated Red Blood Cells # 0.0 Prothrombin Time 16.5 H 16.8 H Prothrombin Time Ratio 1.3 1.3 INR International Normalized Ratio 1.32 1.36 Activated Partial Thromboplast Time 32.9 35.1 H Sodium Level 139 Potassium Level 4.1 Chloride Level 86 L Carbon Dioxide Level 40 H Anion Gap 17 H Blood Urea Nitrogen 19 Creatinine 0.77 Glucose Level 149 Calcium Level 8.5 Total Bilirubin 0.5 Direct Bilirubin 0.00 Indirect Bilirubin 0.5 Aspartate Amino Transf (AST/SGOT) 29 Alanine Aminotransferase (ALT/SGPT) 17 Alkaline Phosphatase 181 H Troponin I < 0.012 < 0.012 B-Type Natriuretic Peptide 8790 H Total Protein 9.5 H Albumin 3.4 Globulin 6.10 H Albumin/Globulin Ratio 0.55 Creatine Kinase < 20 L Creatine Kinase Index Creatinine Kinase MB (Mass) 1.44 Test 12/28/16 16:07 Thyroid Stimulating Hormone (TSH) 1.980 Free Thyroxine 1.34 Medications Medications Current Medications Docusate Sodium (Colace) 100 mg DAILY PO Last administered on 12/28/16 09:32; Admin Dose 100 MG; Start 12/28/16 at 09:00 Famotidine (Pepcid) 20 mg DAILY PO Last administered on 12/28/16 09:31; Admin Dose 20 MG; Start 12/28/16 at 09:00 Ferrous Sulfate (Ferrous Sulfate (Ec)) 325 mg DAILY PO Last administered on 09:31; Admin Dose 325 MG; Start 12/28/16 at 09:00 Fluticasone Propionate (Flonase 0.05% Nasal) 1 spray DAILY PRN NASAL PRN; Start 12/28/16 at 03:00 Salmeterol Xinafoate/ Fluticasone (Advair 250/50 Diskus) 1 inh BID INH Last administered on 12/28/16 09:32; Admin Dose 1 INH; Start 12/28/16 at 09:00 Spironolactone (Aldactone) 25 mg BID PO ; Start 12/28/16 at 09:00 Ondansetron HCl (Zofran Inj) 4 mg Q6H PRN IV NAUSEA AND/OR VOMITING; Start at 03:00 Nitroglycerin (Nitroglycerin (Sl Tab) 0.4 Mg) 1 tab Q5M PRN SL CHEST PAIN; Start 12/28/16 at 03:00 Acetaminophen (Tylenol Tab) 650 mg Q6H PRN PO PAIN LEVEL 1-3 OR FEVER; Start at 03:00 Morphine Sulfate (morphine) 2 mg Q4H PRN IV PAIN LEVEL 7-10; Start 12/28/16 at 03:00 Docusate Sodium (Colace) 100 mg Q12H PRN PO CONSTIPATION; Start 12/28/16 at 03: 00 Magnesium Hydroxide (Milk Of Mag) 30 ml DAILY PRN PO CONSTIPATION; Start at 03:00 Bisacodyl (Dulcolax Supp) 10 mg DAILY PRN [place] CONSTIPATION; Start 12/28/16 at 03 :00 Enoxaparin Sodium (Lovenox) 70 mg Q12 SC ; Start 12/28/16 at 21:00 Procedures Procedures ECG done today demonstrates atrial fibrillation with rapid ventricular rates in the 130s, QRS 84 ms, nonspecific STT wave abnormalities Justin Murphy DO Dec 28, 2016 17:51
[2016-12-28] MEDS ORDERED: DIGOXIN 500 MCG INJ IV ONE ×2 (18:00→23:00)
[2016-12-28] MEDS: DILTIAZEM 30 MG TAB PO SCH (18:27)
[2016-12-28] MEDS ORDERED: ENOXAPARIN 80 MG/0.8 ML SYG SC SCH (21:00)
[2016-12-28] MEDS: APIXABAN 5 MG TABLET PO SCH (21:38)
[2016-12-29] VITALS (15 sets, daily range): BP systolic 84–113; BP diastolic 54–74; PULSE 85–110; RESP 18–20
[2016-12-29] MEDS: DILTIAZEM 30 MG TAB PO SCH ×4 (06:00→18:34)
[2016-12-29] MEDS: LEVOTHYROXINE 150 MCG TAB PO SCH (06:51)
[2016-12-29 07:06] LABS: BASOPHIL # 0.1 10^3/ul (0.0-0.1); BASOPHILS % 0.7 % (0.0-2.0); EOSINOPHILS # 0.1 10^3/ul (0.0-0.5); EOSINOPHILS % 1.1 % (0.0-7.0); HEMATOCRIT 32.6 % (42.0-52.0); HEMOGLOBIN 9.8 g/dl (14.0-18.0); LYMPHOCYTES # 1.3 10^3/ul (0.8-2.9); LYMPHOCYTES % 18.4 % (15.0-51.0); MEAN CORPUSCULAR HEMOGLOBIN 28.2 pg (29.0-33.0); MEAN CORPUSCULAR HGB CONC 30.1 g/dl (32.0-37.0); MEAN CORPUSCULAR VOLUME 93.9 fl (82.0-101.0); MEAN PLATELET VOLUME 11.7 fl (7.4-10.4); MONOCYTES % 13.2 % (0.0-11.0); NEUTROPHIL # 4.7 10^3/ul (1.6-7.5); NEUTROPHILS % 65.9 % (39.0-77.0); PLATELET COUNT 133 10^3/UL (140-415); RED BLOOD COUNT 3.47 10^6/ul (4.70-6.10); RED CELL DISTRIBUTION WIDTH 19.9 % (11.5-14.5); WHITE BLOOD COUNT 7.2 10^3/ul (4.8-10.8)
[2016-12-29 07:31] LABS: ALBUMIN 2.8 g/dl (3.3-4.9); ALBUMIN/GLOBULIN RATIO 0.53; BILIRUBIN,INDIRECT 0.4 mg/dl (0-1.1); BILIRUBIN,TOTAL 0.4 mg/dl (0.2-1.3); CALCIUM 7.9 mg/dl (8.4-10.2); CREATININE 0.71 mg/dl (0.61-1.24); MAGNESIUM 1.8 mg/dl (1.7-2.5); POTASSIUM 3.9 mmol/L (3.5-5.1)
[2016-12-29] MEDS: SALMETEROL/FLUTICASONE 250/50 INHA INH SCH ×2 (09:01→21:02)
[2016-12-29] MEDS: APIXABAN 5 MG TABLET PO SCH ×2 (09:01→21:02)
[2016-12-29] MEDS: SPIRONOLACTONE 25 MG TAB PO SCH ×2 (09:01→21:01)
[2016-12-29] MEDS: DOCUSATE SODIUM 100 MG CAP PO SCH (09:01)
[2016-12-29] MEDS: FERROUS SULFATE (EC) 325 MG TAB PO SCH (09:01)
[2016-12-29] MEDS: FAMOTIDINE 20 MG TAB PO SCH (09:01)
[2016-12-29] MEDS: ALBUTEROL/IPRATROPIUM (NEB) 3 ML AMP HHN SCH ×3 (09:03→23:52)
[2016-12-29] MEDS: DIGOXIN 0.125 MG TAB PO SCH (12:58)
--- NOTE | 2016-12-29 16:23 | CONS ---
Date/Time of Note Date/Time of Note DATE: 12/29/16 TIME: 16:21 Assessment/Plan Assessment/Plan Additional Assessment/Plan Acute decompensated diastolic congestive heart failure Mitral and tricuspid valve regurgitation Atrial fibrillation with rapid ventricular rates, improved Pulmonary hypertension Borderline blood pressure -Patient's blood pressure has been labile which limits use of diuretics and calcium channel ella. Continue as blood pressure permits. Consultation Date/Type/Reason Admit Date/Time Dec 28, 2016 at 01:31 Initial Consult Date Type of Consultation: cv 24 HR Interval Summary Free Text/Dictation Patient feeling better, less shortness of breath, denies palpitations or chest pain. Exam/Review of Systems Vital Signs Vitals Vital Signs Date Time Temp Pulse Resp B/P Pulse Ox O2 Delivery O2 Flow Rate FiO2 12/29/16 15:30 84 20 98 Nasal Cannula 2.0 12/29/16 15:09 97.7 95/74 12/29/16 03:02 27 Intake and Output 12/28/16 12/28/16 12/29/16 15:00 23:00 07:00 Intake Total 850 ml 300 ml Output Total 450 ml 900 ml Balance 400 ml -600 ml Exam No apparent distress, sitting up in bed Constitutional: alert, oriented Head: normocephalic Neck: supple Respiratory: other (Coarse breath sounds bilaterally with scattered fine rhonchi) Cardiovascular: irregular rhythm, other (S1-S2 heard) Gastrointestinal: bowel sounds, non-tender, soft Extremities: edema Results Result Diagram: 12/29/16 0649 12/29/16 0649 Results 24 hrs Laboratory Tests Test 12/29/16 06:49 White Blood Count 7.2 Red Blood Count 3.47 L Hemoglobin 9.8 L Hematocrit 32.6 L Mean Corpuscular Volume 93.9 Mean Corpuscular Hemoglobin 28.2 L Mean Corpuscular Hemoglobin Concent 30.1 L Red Cell Distribution Width 19.9 H Platelet Count 133 L Mean Platelet Volume 11.7 H Neutrophils % 65.9 Lymphocytes % 18.4 Monocytes % 13.2 H Eosinophils % 1.1 Basophils % 0.7 Nucleated Red Blood Cells % 0.0 Neutrophils # 4.7 Lymphocytes # 1.3 Monocytes # 1.0 H Eosinophils # 0.1 Basophils # 0.1 Nucleated Red Blood Cells # 0.0 Sodium Level 140 Potassium Level 3.9 Chloride Level 86 L Carbon Dioxide Level Anion Gap 12 Blood Urea Nitrogen 18 Creatinine 0.71 Glucose Level 90 # Calcium Level 7.9 L Phosphorus Level 3.7 Magnesium Level 1.8 Total Bilirubin 0.4 Direct Bilirubin 0.00 Indirect Bilirubin 0.4 Aspartate Amino Transf (AST/SGOT) 24 Alanine Aminotransferase (ALT/SGPT) 14 Alkaline Phosphatase 148 H Total Protein 8.0 # Albumin 2.8 L Globulin 5.20 H Albumin/Globulin Ratio 0.53 Medications Medications Current Medications Docusate Sodium (Colace) 100 mg DAILY PO Last administered on 12/29/16 09:01; Admin Dose 100 MG; Start 12/28/16 at 09:00 Famotidine (Pepcid) 20 mg DAILY PO Last administered on 12/29/16 09:01; Admin Dose 20 MG; Start 12/28/16 at 09:00 Ferrous Sulfate (Ferrous Sulfate (Ec)) 325 mg DAILY PO Last administered on 09:01; Admin Dose 325 MG; Start 12/28/16 at 09:00 Fluticasone Propionate (Flonase 0.05% Nasal) 1 spray DAILY PRN NASAL PRN; Start 12/28/16 at 03:00 Salmeterol Xinafoate/ Fluticasone (Advair 250/50 Diskus) 1 inh BID INH Last administered on 12/29/16 09:01; Admin Dose 1 INH; Start 12/28/16 at 09:00 Spironolactone (Aldactone) 25 mg BID PO Last administered on 12/29/16 09:01; Admin Dose 25 MG; Start 12/28/16 at 09:00 Ondansetron HCl (Zofran Inj) 4 mg Q6H PRN IV NAUSEA AND/OR VOMITING; Start at 03:00 Nitroglycerin (Nitroglycerin (Sl Tab) 0.4 Mg) 1 tab Q5M PRN SL CHEST PAIN; Start 12/28/16 at 03:00 Acetaminophen (Tylenol Tab) 650 mg Q6H PRN PO PAIN LEVEL 1-3 OR FEVER; Start at 03:00 Morphine Sulfate (morphine) 2 mg Q4H PRN IV PAIN LEVEL 7-10; Start 12/28/16 at 03:00 Docusate Sodium (Colace) 100 mg Q12H PRN PO CONSTIPATION; Start 12/28/16 at 03: 00 Magnesium Hydroxide (Milk Of Mag) 30 ml DAILY PRN PO CONSTIPATION Last administered on 12/29/16 16:00; Admin Dose 30 ML; Start 12/28/16 at 03:00 Bisacodyl (Dulcolax Supp) 10 mg DAILY PRN [place] CONSTIPATION; Start 12/28/16 at 03 :00 Diltiazem HCl (Cardizem) 30 mg Q6 PO Last administered on 12/28/16 18:27; Admin Dose 30 MG; Start 12/28/16 at 18:00 Digoxin (Digoxin) 0.125 mg DAILY@13 PO Last administered on 12/29/16 12:58; Admin Dose 0.125 MG; Start 12/29/16 at 13:00 Apixaban (Eliquis) 5 mg BID PO Last administered on 12/29/16 09:01; Admin Dose 5 MG; Start 12/28/16 at 21:00 Justin Murphy DO Dec 29, 2016 16:23
--- NOTE | 2016-12-29 16:43 | RADRPT ---
PROCEDURE: XR Chest. CLINICAL INDICATION: CHF TECHNIQUE: Single frontal view of the chest was obtained COMPARISON: Chest x-ray 12/27/2016 FINDINGS: The cardiac silhouette remains enlarged. There are atherosclerotic calcifications of the thoracic aorta. There has been no significant interval change in pulmonary vascular congestion and diffuse patchy op acities throughout both lungs. No pneumothorax is identified. There are degenerative changes of the visualized spine. IMPRESSION: 1. No significant interval change in appearance of the lungs. There is persistent pulmonary vascula r congestion and diffuse patchy opacities throughout both lungs, consistent with pulmonary edema. 2. Cardiomegaly. RPTAT: PP Physician Aleksey Date Time Electronically viewed and signed by Physician Aleksey on 12/29/2016 16:42 RC/
--- NOTE | 2016-12-29 17:45 | PN ---
Date/Time of Note Date/Time of Note DATE: 12/29/16 TIME: 17:24 Assessment/Plan VTE Prophylaxis VTE Prophylaxis Intervention: other (Eliquis) Lines/Catheters IV [facility]from [facility] Urinary Cath still in place: No Assessment/Plan Assessment/Plan 81-year-old male; 1. CHF exacerbation, new onset A. fib, unclear if patient has progressive systolic dysfunction on top of diastolic dysfunction. Anasarca improved. Status post Bumex drip yesterday. He is in atrial fibrillation, heart rate is more or less controlled, currently getting digoxin, diuresis on hold. Replete electrolytes as needed 2. Atrial fibrillation, no previous report. 2D echocardiogram report pending to see if patient has progressing valvular disease. TFTs within normal, on digoxin, also on Cardizem but patient's blood pressure has been borderline Anticoagulation with Eliquis for stroke prophylaxis Follow-up further cardiology recommendations 3. Hypertension: Patient with borderline blood pressure, on Cardizem for atrial fibrillation control 4. Hypothyroidism: Continue levothyroxine 5. Moderate pulmonary fibrosis at least, oxygen dependent with chronic hypoxemia. Continue Advair and nebulizer treatment and oxygen supplement. Prophylaxis: Pepcid for GI prophylaxis, Eliquis for anticoagulation Disposition: Monitor for 24 more hours and discharge planning tomorrow if stable enough otherwise sometimes this weekend with appropriate atrial fibrillation control and diuretics. Subjective 24 Hr Interval Summary Free Text/Dictation Patient feels better, less edema, less abdominal anasarca. He is heart rate seems to be better control with digoxin on board, however blood pressure is borderline therefore his Cardizem has been held most of the day. He denies any additional shortness of breath he is oxygen dependent 2-3 L nasal cannula. Appreciate cardiology recommendations Exam/Review of Systems Vital Signs Vitals Vital Signs Date Time Temp Pulse Resp B/P Pulse Ox O2 Delivery O2 Flow Rate FiO2 12/29/16 16:12 87 12/29/16 15:30 20 98 Nasal Cannula 2.0 12/29/16 15:09 97.7 95/74 12/29/16 03:02 27 Intake and Output 12/28/16 12/28/16 12/29/16 15:00 23:00 07:00 Intake Total 850 ml 300 ml Output Total 450 ml 900 ml Balance 400 ml -600 ml Exam Constitutional: alert, frail, oriented, other (Elderly) Respiratory: diminished breath sounds (Bases) Cardiovascular: irregular rhythm (Atrial fibrillation) Gastrointestinal: non-tender, other, soft Extremities: normal pulses 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: VESSEL MASTER II-XII intact, nl mental status, nl speech, other ( Generalized weakness improving) Results Result Diagram: 12/29/16 0649 12/29/16 0649 Results 24 hrs Laboratory Tests Test 12/29/16 06:49 White Blood Count 7.2 Red Blood Count 3.47 L Hemoglobin 9.8 L Hematocrit 32.6 L Mean Corpuscular Volume 93.9 Mean Corpuscular Hemoglobin 28.2 L Mean Corpuscular Hemoglobin Concent 30.1 L Red Cell Distribution Width 19.9 H Platelet Count 133 L Mean Platelet Volume 11.7 H Neutrophils % 65.9 Lymphocytes % 18.4 Monocytes % 13.2 H Eosinophils % 1.1 Basophils % 0.7 Nucleated Red Blood Cells % 0.0 Neutrophils # 4.7 Lymphocytes # 1.3 Monocytes # 1.0 H Eosinophils # 0.1 Basophils # 0.1 Nucleated Red Blood Cells # 0.0 Sodium Level 140 Potassium Level 3.9 Chloride Level 86 L Carbon Dioxide Level Anion Gap 12 Blood Urea Nitrogen 18 Creatinine 0.71 Glucose Level 90 # Calcium Level 7.9 L Phosphorus Level 3.7 Magnesium Level 1.8 Total Bilirubin 0.4 Direct Bilirubin 0.00 Indirect Bilirubin 0.4 Aspartate Amino Transf (AST/SGOT) 24 Alanine Aminotransferase (ALT/SGPT) 14 Alkaline Phosphatase 148 H Total Protein 8.0 # Albumin 2.8 L Globulin 5.20 H Albumin/Globulin Ratio 0.53 Medications Medications Current Medications Docusate Sodium (Colace) 100 mg DAILY PO Last administered on 12/29/16 09:01; Admin Dose 100 MG; Start 12/28/16 at 09:00 Famotidine (Pepcid) 20 mg DAILY PO Last administered on 12/29/16 09:01; Admin Dose 20 MG; Start 12/28/16 at 09:00 Ferrous Sulfate (Ferrous Sulfate (Ec)) 325 mg DAILY PO Last administered on 09:01; Admin Dose 325 MG; Start 12/28/16 at 09:00 Fluticasone Propionate (Flonase 0.05% Nasal) 1 spray DAILY PRN NASAL PRN; Start 12/28/16 at 03:00 Salmeterol Xinafoate/ Fluticasone (Advair 250/50 Diskus) 1 inh BID INH Last administered on 12/29/16 09:01; Admin Dose 1 INH; Start 12/28/16 at 09:00 Spironolactone (Aldactone) 25 mg BID PO Last administered on 12/29/16 09:01; Admin Dose 25 MG; Start 12/28/16 at 09:00 Ondansetron HCl (Zofran Inj) 4 mg Q6H PRN IV NAUSEA AND/OR VOMITING; Start at 03:00 Nitroglycerin (Nitroglycerin (Sl Tab) 0.4 Mg) 1 tab Q5M PRN SL CHEST PAIN; Start 12/28/16 at 03:00 Acetaminophen (Tylenol Tab) 650 mg Q6H PRN PO PAIN LEVEL 1-3 OR FEVER; Start at 03:00 Morphine Sulfate (morphine) 2 mg Q4H PRN IV PAIN LEVEL 7-10; Start 12/28/16 at 03:00 Docusate Sodium (Colace) 100 mg Q12H PRN PO CONSTIPATION; Start 12/28/16 at 03: 00 Magnesium Hydroxide (Milk Of Mag) 30 ml DAILY PRN PO CONSTIPATION Last administered on 12/29/16 16:00; Admin Dose 30 ML; Start 12/28/16 at 03:00 Bisacodyl (Dulcolax Supp) 10 mg DAILY PRN [place] CONSTIPATION; Start 12/28/16 at 03 :00 Diltiazem HCl (Cardizem) 30 mg Q6 PO Last administered on 12/28/16 18:27; Admin Dose 30 MG; Start 12/28/16 at 18:00 Digoxin (Digoxin) 0.125 mg DAILY@13 PO Last administered on 12/29/16 12:58; Admin Dose 0.125 MG; Start 12/29/16 at 13:00 Apixaban (Eliquis) 5 mg BID PO Last administered on 12/29/16 09:01; Admin Dose 5 MG; Start 12/28/16 at 21:00 JUANITA RONQUILLO Dec 29, 2016 17:37
--- NOTE | 2016-12-29 22:19 | RADRPT ---
Echocardiogram Report Patient Name: CARAL POLLARD Gender: Male Date: 1935 Study Date: 28-Dec-2016 Jacquard Loom Weaver: Josy [facility] Location: [id number] Ref. Physician: JUSTIN MURPHY Quality: Adequate Procedures: Transthoracic echocardiogram with complete 2D, M-Mode, and doppler examination. Indications: Congestive Heart Failure, A.Fib. 2D/M Mode Doppler Measurement Value Normal Ranges Measurement Value Normal Ranges LVIDd 2D 3.6 3.5 - 5.6 cm FENG Vmax 0.5 cm2 LVIDs 2D 3.2 2.1 - 4.1 cm FENG VTI 0.5 cm2 FS 2D 11.1 % AV Mean Josiah 1.9 m/sec LVPWd 2D 1.1 0.6 - 1.1 cm AV Mean PG 18.0 mmHg IVSd 2D 0.9 0.6 - 1.1 cm AV Peak Josiah 2.8 m/sec IVS/LVPW 2D 0.8 AV Peak PG 32.0 mmHg AoR Diam 2D 3.1 2.0 - 3.7 cm AV VTI 56.5 cm LA/Ao 2D 2 0 - 1 LVOT Mean Josiah 0.4 m/sec EDV 2D 46.7 cm3 LVOT Mean PG 1.0 mmHg ESV 2D 32.8 cm3 LVOT Peak Josiah 0.6 m/sec LA Dimen 2D 5.2 2.3 - 4.0 cm LVOT Peak PG 2.0 mmHg LVOT Diam 1.6 cm LVOT VTI 13.2 cm LVOT Area 2.0 cm2 MV E Peak Josiah 1.8 m/sec MV PHT 69.0 msec MV Peak Josiah 1.8 m/sec MV Peak PG 14.0 mmHg MV Mean Josiah 0.8 m/sec MV Mean PG 4.0 mmHg MV Decel Time 130 msec MV Decel Cameron 8 MV PHT Peak Josiah 1.8 m/sec MV PHT 69.0 msec MV VTI 30.4 cm MVA PHT 3.2 cm2 MVA VTI 0.9 cm TR Peak Josiah 2.8 m/sec TR Peak PG 32.0 mmHg RVSP 53.0 mmHg Findings Left Ventricle: Normal left ventricular cavity size. Normal left ventricular wall thickness. Reduced left ventricular cavity size. Mild to moderate left ventricular systolic dysfunction. Ejection fraction is visually estimated at 4045 %. Abnormal Diastolic Function. Right Ventricle: Moderate enlargement of right ventricle. Moderate to severe right ventricular hypokinesis. Left Atrium: There is moderate enlargement of left atrium. Right Atrium: There is moderate enlargement of right atrium. Mitral Valve: Mitral valve leaflets appear mildly thickened. Mild mitral annular calcification. Mild mitral valve regurgitation. The regurgitation jet is eccentrically directed which may underestimate the severity of mitral regurgitation. Aortic Valve: Mild aortic stenosis. Max PG 33.00 mmHg. Mean PG 18.00 mmHg. Aortic cusps appear moderately calcified. Trace aortic valve regurgitation. Tricuspid Valve: Estimated peak PA systolic pressure 53 mmHg. Tricuspid valve appears mildly thickened. There is mild to moderate tricuspid regurgitation. Pulmonic Valve: Pulmonic valve not well visualized. There is trace pulmonic regurgitation. Pericardium: Normal pericardium with no significant pericardial effusion. Left pleural effusion seen. Aorta: Normal aortic root. IVC: Dilated inferior vena cava with poor inspiratory collapse consistent with elevated right atrial pressures. Conclusions Normal left ventricular cavity size. Normal left ventricular wall thickness. Reduced left ventricular cavity size. Mild to moderate left ventricular systolic dysfunction. Ejection fraction is visually estimated at 40-45 %. Abnormal Diastolic Function. Moderate enlargement of right ventricle. Moderate to severe right ventricular hypokinesis. There is moderate enlargement of left atrium. There is moderate enlargement of right atrium. Mild mitral valve regurgitation. The regurgitation jet is eccentrically directed which may underestimate the severity of mitral regurgitation. Mild aortic stenosis. Trace aortic valve regurgitation. Estimated peak PA systolic pressure 53 mmHg. There is mild to moderate tricuspid regurgitation. Normal pericardium with no significant pericardial effusion. Left pleural effusion seen. Electronically Signed By: Justin Murphy 29-Dec-2016 22:18:41 -0700 Patient Name: CARLA POLLARD Study Date: 28-Dec-2016 [id number]
[2016-12-30] VITALS (11 sets, daily range): BP systolic 103–131; BP diastolic 48–71; PULSE 71–95; RESP 16–18
[2016-12-30 06:22] LABS: ABNORMAL IP MESSAGE 1; BASOPHIL # 0.1 10^3/ul (0.0-0.1); BASOPHILS % 0.7 % (0.0-2.0); EOSINOPHILS # 0.1 10^3/ul (0.0-0.5); EOSINOPHILS % 1.2 % (0.0-7.0); HEMATOCRIT 34.6 % (42.0-52.0); HEMOGLOBIN 10.4 g/dl (14.0-18.0); LYMPHOCYTES # 1.1 10^3/ul (0.8-2.9); MEAN CORPUSCULAR HEMOGLOBIN 28.2 pg (29.0-33.0); MEAN CORPUSCULAR HGB CONC 30.1 g/dl (32.0-37.0); MEAN CORPUSCULAR VOLUME 93.8 fl (82.0-101.0); MEAN PLATELET VOLUME 13.2 fl (7.4-10.4); MONOCYTE # 1.1 10^3/ul (0.3-0.9); MONOCYTES % 14.2 % (0.0-11.0); NEUTROPHIL # 5.1 10^3/ul (1.6-7.5); NEUTROPHILS % 68.4 % (39.0-77.0); PLATELET COUNT 90 10^3/UL (140-415); POSITIVE DIFF @See below; RED BLOOD COUNT 3.69 10^6/ul (4.70-6.10); RED CELL DISTRIBUTION WIDTH 19.7 % (11.5-14.5); WHITE BLOOD COUNT 7.4 10^3/ul (4.8-10.8)
[2016-12-30] MEDS: FUROSEMIDE 20 MG INJ IV SCH ×2 (06:34→17:05)
[2016-12-30] MEDS: LEVOTHYROXINE 150 MCG TAB PO SCH (06:35)
[2016-12-30] MEDS: METOPROLOL 25 MG TAB PO SCH ×3 (06:35→21:53)
[2016-12-30 07:18] LABS: MAGNESIUM 2.1 mg/dl (1.7-2.5)
[2016-12-30 07:34] LABS: ALBUMIN/GLOBULIN RATIO 0.57; BILIRUBIN,INDIRECT 0.5 mg/dl (0-1.1); BILIRUBIN,TOTAL 0.5 mg/dl (0.2-1.3); CALCIUM 7.9 mg/dl (8.4-10.2); CREATININE 0.64 mg/dl (0.61-1.24); POTASSIUM 4.4 mmol/L (3.5-5.1); TOTAL PROTEIN 8.2 g/dl (6.1-8.1)
[2016-12-30] MEDS: ALBUTEROL/IPRATROPIUM (NEB) 3 ML AMP HHN SCH ×2 (07:49→15:50)
[2016-12-30] MEDS: SALMETEROL/FLUTICASONE 250/50 INHA INH SCH ×2 (08:30→21:52)
[2016-12-30] MEDS: SPIRONOLACTONE 25 MG TAB PO SCH ×2 (08:30→21:53)
[2016-12-30] MEDS: APIXABAN 5 MG TABLET PO SCH ×2 (08:31→21:53)
[2016-12-30] MEDS: FERROUS SULFATE (EC) 325 MG TAB PO SCH (08:31)
[2016-12-30] MEDS: DOCUSATE SODIUM 100 MG CAP PO SCH (08:31)
[2016-12-30] MEDS: FAMOTIDINE 20 MG TAB PO SCH (08:31)
[2016-12-30] MEDS: DIGOXIN 0.125 MG TAB PO SCH (13:06)
--- NOTE | 2016-12-30 13:44 | CONS ---
Date/Time of Note Date/Time of Note DATE: 12/30/16 TIME: 13:42 Assessment/Plan Assessment/Plan Additional Assessment/Plan Acute decompensated systolic and diastolic congestive heart failure Cardiomyopathy with ejection fraction 40-45% Mitral and tricuspid valve regurgitation Atrial fibrillation with rapid ventricular rates, improved Pulmonary hypertension Borderline blood pressure -Heart rate controlled on beta-ella, would change diuretics to p.o. within the next 24 hours. Continue anticoagulation if no contraindication. Consultation Date/Type/Reason Admit Date/Time Dec 28, 2016 at 01:31 Type of Consultation: cv 24 HR Interval Summary Free Text/Dictation Shortness of breath continues to improve. Denies palpitations or chest pain Exam/Review of Systems Vital Signs Vitals Vital Signs Date Time Temp Pulse Resp B/P Pulse Ox O2 Delivery O2 Flow Rate FiO2 12/30/16 11:01 97.8 80 16 103/66 97 12/30/16 09:45 Nasal Cannula 2.0 12/29/16 03:02 27 Intake and Output 12/29/16 12/29/16 12/30/16 15:00 23:00 07:00 Intake Total 600 ml 150 ml Output Total 200 ml Balance 600 ml -50 ml Exam Eating lunch, no apparent distress Constitutional: alert, oriented Neck: supple Respiratory: other (Coarse breath sounds bilaterally with scattered rhonchi, no wheezing) Cardiovascular: irregular rhythm, other (S1-S2 heard) Gastrointestinal: bowel sounds, non-tender, soft Extremities: edema Results Result Diagram: 12/30/16 0535 12/30/16 0536 Results 24 hrs Laboratory Tests Test 12/30/16 05:35 12/30/16 05:36 White Blood Count 7.4 Red Blood Count 3.69 L Hemoglobin 10.4 L Hematocrit 34.6 L Mean Corpuscular Volume 93.8 Mean Corpuscular Hemoglobin 28.2 L Mean Corpuscular Hemoglobin Concent 30.1 L Red Cell Distribution Width 19.7 H Platelet Count 90 #L Mean Platelet Volume 13.2 H Neutrophils % 68.4 Lymphocytes % 15.0 Monocytes % 14.2 H Eosinophils % 1.2 Basophils % 0.7 Nucleated Red Blood Cells % 0.0 Neutrophils # 5.1 Lymphocytes # 1.1 Monocytes # 1.1 H Eosinophils # 0.1 Basophils # 0.1 Nucleated Red Blood Cells # 0.0 Phosphorus Level 3.0 Magnesium Level 2.1 Sodium Level 137 Potassium Level 4.4 Chloride Level 86 L Carbon Dioxide Level 43 *H Anion Gap 12 Blood Urea Nitrogen 16 Creatinine 0.64 Glucose Level 90 Calcium Level 7.9 L Total Bilirubin 0.5 Direct Bilirubin 0.00 Indirect Bilirubin 0.5 Aspartate Amino Transf (AST/SGOT) 25 Alanine Aminotransferase (ALT/SGPT) 20 Alkaline Phosphatase 152 H Total Protein 8.2 H Albumin 3.0 L Globulin 5.20 H Albumin/Globulin Ratio 0.57 Medications Medications Current Medications Docusate Sodium (Colace) 100 mg DAILY PO Last administered on 12/30/16 08:31; Admin Dose 100 MG; Start 12/28/16 at 09:00 Famotidine (Pepcid) 20 mg DAILY PO Last administered on 12/30/16 08:31; Admin Dose 20 MG; Start 12/28/16 at 09:00 Ferrous Sulfate (Ferrous Sulfate (Ec)) 325 mg DAILY PO Last administered on 08:31; Admin Dose 325 MG; Start 12/28/16 at 09:00 Fluticasone Propionate (Flonase 0.05% Nasal) 1 spray DAILY PRN NASAL PRN Last administered on 12/30/16 00:01; Admin Dose 1 SPRAY; Start 12/28/16 at 03:00 Salmeterol Xinafoate/ Fluticasone (Advair 250/50 Diskus) 1 inh BID INH Last administered on 12/29/16 21:02; Admin Dose 1 INH; Start 12/28/16 at 09:00 Spironolactone (Aldactone) 25 mg BID PO Last administered on 12/30/16 08:30; Admin Dose 25 MG; Start 12/28/16 at 09:00 Ondansetron HCl (Zofran Inj) 4 mg Q6H PRN IV NAUSEA AND/OR VOMITING; Start at 03:00 Nitroglycerin (Nitroglycerin (Sl Tab) 0.4 Mg) 1 tab Q5M PRN SL CHEST PAIN; Start 12/28/16 at 03:00 Acetaminophen (Tylenol Tab) 650 mg Q6H PRN PO PAIN LEVEL 1-3 OR FEVER; Start at 03:00 Morphine Sulfate (morphine) 2 mg Q4H PRN IV PAIN LEVEL 7-10; Start 12/28/16 at 03:00 Docusate Sodium (Colace) 100 mg Q12H PRN PO CONSTIPATION; Start 12/28/16 at 03: 00 Magnesium Hydroxide (Milk Of Mag) 30 ml DAILY PRN PO CONSTIPATION Last administered on 12/29/16 16:00; Admin Dose 30 ML; Start 12/28/16 at 03:00 Bisacodyl (Dulcolax Supp) 10 mg DAILY PRN [place] CONSTIPATION; Start 12/28/16 at 03 :00 Digoxin (Digoxin) 0.125 mg DAILY@13 PO Last administered on 12/30/16 13:06; Admin Dose 0.125 MG; Start 12/29/16 at 13:00 Apixaban (Eliquis) 5 mg BID PO Last administered on 12/30/16 08:31; Admin Dose 5 MG; Start 12/28/16 at 21:00 Metoprolol Tartrate (Lopressor) 25 mg Q8 PO Last administered on 12/30/16 13: 06; Admin Dose 25 MG; Start 12/30/16 at 06:00 Justin Murphy DO Dec 30, 2016 13:44
--- NOTE | 2016-12-30 14:53 | PN ---
Date/Time of Note Date/Time of Note DATE: 12/30/16 TIME: 14:43 Assessment/Plan VTE Prophylaxis VTE Prophylaxis Intervention: other (Eliquis) Lines/Catheters IV [facility]ter [facility] (from [facility]): Saline Lock Urinary Cath still in place: No Assessment/Plan Assessment/Plan 81-year-old male; 1. CHF exacerbation, new onset A. fib, 2D echocardiogram shows a drop in ejection fraction therefore probably has combined systolic and diastolic dysfunction. Anasarca improved. Status post Bumex drip and now on Lasix 20 mg IV twice daily with plan to switch to 20 mg p.o. twice daily by tomorrow, continue Aldactone. He is in atrial fibrillation, heart rate is now controlled, continue current medications. Replete electrolytes as needed 2. Atrial fibrillation, no previous report. TFTs within normal, on digoxin, beta-ella Anticoagulation with Eliquis for stroke prophylaxis Appreciate cardiology recommendations. 3. Hypertension: Tolerating medication so far. 4. Hypothyroidism: Continue levothyroxine 5. Moderate pulmonary fibrosis at least, oxygen dependent with chronic hypoxemia on 2-3 L nasal cannula as an outpatient. Continue Advair and nebulizer treatment and oxygen supplement. Prophylaxis: Pepcid for GI prophylaxis, Eliquis for anticoagulation Disposition: Monitor for 24 more hours and discharge planning tomorrow on oral diuretics, beta blockers, digoxin and Eliquis if stable. Patient wants to go home and not interested in assisted facility. Subjective 24 Hr Interval Summary Free Text/Dictation Patient feels better, he is on 2 L nasal cannula which is his chronic oxygen requirement. Much less anasarca. Currently on Lasix 20 mg IV twice daily for diuresis. Heart rate better controlled on beta blockers and digoxin. Also on Eliquis for stroke prevention Discharge planning for tomorrow on oral Lasix if patient stable. [employer] case management working on prior authorization for his Eliquis Exam/Review of Systems Vital Signs Vitals Vital Signs Date Time Temp Pulse Resp B/P Pulse Ox O2 Delivery O2 Flow Rate FiO2 12/30/16 11:01 97.8 80 16 103/66 97 12/30/16 09:45 Nasal Cannula 2.0 12/29/16 03:02 27 Intake and Output 12/29/16 12/29/16 12/30/16 15:00 23:00 07:00 Intake Total 600 ml 150 ml Output Total 200 ml Balance 600 ml -50 ml Exam Constitutional: alert, frail, oriented, other (Much improved anasarca) Eyes: other (Right glass eye) Respiratory: diminished breath sounds (Chronic, bilateral lower more so than upper lobes), other Cardiovascular: irregular rhythm (Atrial fibrillation, rate controlled) Gastrointestinal: non-tender, soft Musculoskeletal: swelling (Improved anasarca) Extremities: edema (Improved anasarca), normal pulses 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: [employer] II-XII intact, nl mental status, nl speech, nl strength Results Result Diagram: 12/30/16 0535 12/30/16 0536 Results 24 hrs Laboratory Tests Test 12/30/16 05:35 12/30/16 05:36 White Blood Count 7.4 Red Blood Count 3.69 L Hemoglobin 10.4 L Hematocrit 34.6 L Mean Corpuscular Volume 93.8 Mean Corpuscular Hemoglobin 28.2 L Mean Corpuscular Hemoglobin Concent 30.1 L Red Cell Distribution Width 19.7 H Platelet Count 90 #L Mean Platelet Volume 13.2 H Neutrophils % 68.4 Lymphocytes % 15.0 Monocytes % 14.2 H Eosinophils % 1.2 Basophils % 0.7 Nucleated Red Blood Cells % 0.0 Neutrophils # 5.1 Lymphocytes # 1.1 Monocytes # 1.1 H Eosinophils # 0.1 Basophils # 0.1 Nucleated Red Blood Cells # 0.0 Phosphorus Level 3.0 Magnesium Level 2.1 Sodium Level 137 Potassium Level 4.4 Chloride Level 86 L Carbon Dioxide Level 43 *H Anion Gap 12 Blood Urea Nitrogen 16 Creatinine 0.64 Glucose Level 90 Calcium Level 7.9 L Total Bilirubin 0.5 Direct Bilirubin 0.00 Indirect Bilirubin 0.5 Aspartate Amino Transf (AST/SGOT) 25 Alanine Aminotransferase (ALT/SGPT) 20 Alkaline Phosphatase 152 H Total Protein 8.2 H Albumin 3.0 L Globulin 5.20 H Albumin/Globulin Ratio 0.57 Medications Medications Current Medications Docusate Sodium (Colace) 100 mg DAILY PO Last administered on 12/30/16 08:31; Admin Dose 100 MG; Start 12/28/16 at 09:00 Famotidine (Pepcid) 20 mg DAILY PO Last administered on 12/30/16 08:31; Admin Dose 20 MG; Start 12/28/16 at 09:00 Ferrous Sulfate (Ferrous Sulfate (Ec)) 325 mg DAILY PO Last administered on 08:31; Admin Dose 325 MG; Start 12/28/16 at 09:00 Fluticasone Propionate (Flonase 0.05% Nasal) 1 spray DAILY PRN NASAL PRN Last administered on 12/30/16 00:01; Admin Dose 1 SPRAY; Start 12/28/16 at 03:00 Salmeterol Xinafoate/ Fluticasone (Advair 250/50 Diskus) 1 inh BID INH Last administered on 12/29/16 21:02; Admin Dose 1 INH; Start 12/28/16 at 09:00 Spironolactone (Aldactone) 25 mg BID PO Last administered on 12/30/16 08:30; Admin Dose 25 MG; Start 12/28/16 at 09:00 Ondansetron HCl (Zofran Inj) 4 mg Q6H PRN IV NAUSEA AND/OR VOMITING; Start at 03:00 Nitroglycerin (Nitroglycerin (Sl Tab) 0.4 Mg) 1 tab Q5M PRN SL CHEST PAIN; Start 12/28/16 at 03:00 Acetaminophen (Tylenol Tab) 650 mg Q6H PRN PO PAIN LEVEL 1-3 OR FEVER; Start at 03:00 Morphine Sulfate (morphine) 2 mg Q4H PRN IV PAIN LEVEL 7-10; Start 12/28/16 at 03:00 Docusate Sodium (Colace) 100 mg Q12H PRN PO CONSTIPATION; Start 12/28/16 at 03: 00 Magnesium Hydroxide (Milk Of Mag) 30 ml DAILY PRN PO CONSTIPATION Last administered on 12/29/16 16:00; Admin Dose 30 ML; Start 12/28/16 at 03:00 Bisacodyl (Dulcolax Supp) 10 mg DAILY PRN MT CONSTIPATION; Start 12/28/16 at 03 :00 Digoxin (Digoxin) 0.125 mg DAILY@13 PO Last administered on 12/30/16 13:06; Admin Dose 0.125 MG; Start 12/29/16 at 13:00 Apixaban (Eliquis) 5 mg BID PO Last administered on 12/30/16 08:31; Admin Dose 5 MG; Start 12/28/16 at 21:00 Metoprolol Tartrate (Lopressor) 25 mg Q8 PO Last administered on 12/30/16t 13: 06; Admin Dose 25 MG; Start 12/30/16 at 06:00 Procedures Procedures Echocardiogram Report Patient Name: CARLA POLLARD Gender: Male Date: 1935 Study Date: 28-Dec-2016 Cna: Josy [facility] Location: 529 Ref. Physician: JUSTIN MURPHY Quality: Adequate Procedures: Transthoracic echocardiogram with complete 2D, M-Mode, and doppler examination. Indications: Congestive Heart Failure, A.Fib. 2D/M Mode Doppler Measurement Value Normal Ranges Measurement Value Normal Ranges LVIDd 2D 3.6 3.5 - 5.6 cm FENG Vmax 0.5 cm2 LVIDs 2D 3.2 2.1 - 4.1 cm FENG VTI 0.5 cm2 FS 2D 11.1 % AV Mean Josiah 1.9 m/sec LVPWd 2D 1.1 0.6 - 1.1 cm AV Mean PG 18.0 mmHg IVSd 2D 0.9 0.6 - 1.1 cm AV Peak Josiah 2.8 m/sec IVS/LVPW 2D 0.8 AV Peak PG 32.0 mmHg AoR Diam 2D 3.1 2.0 - 3.7 cm AV VTI 56.5 cm LA/Ao 2D 2 0 - 1 LVOT Mean Josiah 0.4 m/sec EDV 2D 46.7 cm3 LVOT Mean PG 1.0 mmHg ESV 2D 32.8 cm3 LVOT Peak Josiah 0.6 m/sec LA Dimen 2D 5.2 2.3 - 4.0 cm LVOT Peak PG 2.0 mmHg LVOT Diam 1.6 cm LVOT VTI 13.2 cm LVOT Area 2.0 cm2 MV E Peak Josiah 1.8 m/sec MV PHT 69.0 msec MV Peak Josiah 1.8 m/sec MV Peak PG 14.0 mmHg MV Mean Josiah 0.8 m/sec MV Mean PG 4.0 mmHg MV Decel Time 130 msec MV Decel Price 8 MV PHT Peak Josiah 1.8 m/sec MV PHT 69.0 msec MV VTI 30.4 cm MVA PHT 3.2 cm2 MVA VTI 0.9 cm TR Peak Josiah 2.8 m/sec TR Peak PG 32.0 mmHg RVSP 53.0 mmHg Findings Left Ventricle: Normal left ventricular cavity size. Normal left ventricular wall thickness. Reduced left ventricular cavity size. Mild to moderate left ventricular systolic dysfunction. Ejection fraction is visually estimated at 4045 %. Abnormal Diastolic Function. Right Ventricle: Moderate enlargement of right ventricle. Moderate to severe right ventricular hypokinesis. Left Atrium: There is moderate enlargement of left atrium. Right Atrium: There is moderate enlargement of right atrium. Mitral Valve: Mitral valve leaflets appear mildly thickened. Mild mitral annular calcification. Mild mitral valve regurgitation. The regurgitation jet is eccentrically directed which may underestimate the severity of mitral regurgitation. Aortic Valve: Mild aortic stenosis. Max PG 33.00 mmHg. Mean PG 18.00 mmHg. Aortic cusps appear moderately calcified. Trace aortic valve regurgitation. Tricuspid Valve: Estimated peak PA systolic pressure 53 mmHg. Tricuspid valve appears mildly thickened. There is mild to moderate tricuspid regurgitation. Pulmonic Valve: Pulmonic valve not well visualized. There is trace pulmonic regurgitation. Pericardium: Normal pericardium with no significant pericardial effusion. Left pleural effusion seen. Aorta: Normal aortic root. IVC: Dilated inferior vena cava with poor inspiratory collapse consistent with elevated right atrial pressures. Conclusions Normal left ventricular cavity size. Normal left ventricular wall thickness. Reduced left ventricular cavity size. Mild to moderate left ventricular systolic dysfunction. Ejection fraction is visually estimated at 40-45 %. Abnormal Diastolic Function. Moderate enlargement of right ventricle. Moderate to severe right ventricular hypokinesis. There is moderate enlargement of left atrium. There is moderate enlargement of right atrium. Mild mitral valve regurgitation. The regurgitation jet is eccentrically directed which may underestimate the severity of mitral regurgitation. Mild aortic stenosis. Trace aortic valve regurgitation. Estimated peak PA systolic pressure 53 mmHg. There is mild to moderate tricuspid regurgitation. Normal pericardium with no significant pericardial effusion. Left pleural effusion seen. Electronically Signed By: Justin Murphy 29-Dec-2016 22:18:41 -0700 JUANITA RONQUILLO Dec 30, 2016 14:53
[2016-12-30] MEDS: BALSAM PERU/CASTOR OIL 60 GM TUBE TOP SCH (17:05)
[2016-12-31] VITALS (11 sets, daily range): BP systolic 88–110; BP diastolic 56–74; PULSE 60–98; RESP 16–20
[2016-12-31] MEDS: ALBUTEROL/IPRATROPIUM (NEB) 3 ML AMP HHN SCH ×3 (00:45→16:00)
[2016-12-31 06:08] LABS: ABNORMAL IP MESSAGE 1; BASOPHIL # 0.1 10^3/ul (0.0-0.1); BASOPHILS % 0.6 % (0.0-2.0); EOSINOPHILS # 0.1 10^3/ul (0.0-0.5); EOSINOPHILS % 1.5 % (0.0-7.0); HEMATOCRIT 33.8 % (42.0-52.0); LYMPHOCYTES # 1.6 10^3/ul (0.8-2.9); LYMPHOCYTES % 18.9 % (15.0-51.0); MEAN CORPUSCULAR HEMOGLOBIN 27.7 pg (29.0-33.0); MEAN CORPUSCULAR HGB CONC 29.6 g/dl (32.0-37.0); MEAN CORPUSCULAR VOLUME 93.6 fl (82.0-101.0); MEAN PLATELET VOLUME 13.7 fl (7.4-10.4); MONOCYTE # 1.4 10^3/ul (0.3-0.9); MONOCYTES % 16.5 % (0.0-11.0); NEUTROPHIL # 5.3 10^3/ul (1.6-7.5); NEUTROPHILS % 61.8 % (39.0-77.0); PLATELET COUNT 79 10^3/UL (140-415); POSITIVE DIFF @See below; RED BLOOD COUNT 3.61 10^6/ul (4.70-6.10); RED CELL DISTRIBUTION WIDTH 19.7 % (11.5-14.5); WHITE BLOOD COUNT 8.6 10^3/ul (4.8-10.8)
[2016-12-31] MEDS: FUROSEMIDE 20 MG INJ IV SCH (06:11)
[2016-12-31] MEDS: METOPROLOL 25 MG TAB PO SCH (06:11)
[2016-12-31] MEDS: LEVOTHYROXINE 150 MCG TAB PO SCH (06:11)
[2016-12-31 06:49] LABS: PHOSPHORUS 3.5 mg/dl (2.5-4.9)
[2016-12-31 06:52] LABS: CALCIUM 8.1 mg/dl (8.4-10.2); CREATININE 0.73 mg/dl (0.61-1.24); POTASSIUM 4.7 mmol/L (3.5-5.1)
--- NOTE | 2016-12-31 09:37 | PN ---
Date/Time of Note Date/Time of Note DATE: 12/31/16 TIME: 09:36 Assessment/Plan VTE Prophylaxis VTE Prophylaxis Intervention: SCD's Lines/Catheters IV Catheter Type (from Nrs): Saline Lock Urinary Cath still in place: No Assessment/Plan Assessment/Plan Acute decompensated systolic and diastolic congestive heart failure Cardiomyopathy with ejection fraction 40-45% Mitral and tricuspid valve regurgitation Atrial fibrillation with rapid ventricular rates, improved Pulmonary hypertension Borderline blood pressure -Heart rate controlled on beta-ella, - Continue anticoagulation if no contraindication -cahnge to po lasix -rate controleld and d/cplanning ok. -low bp so will decrese metorpolo to bid Subjective 24 Hr Interval Summary Free Text/Dictation The patient with no change Exam/Review of Systems Vital Signs Vitals Vital Signs Date Time Temp Pulse Resp B/P Pulse Ox O2 Delivery O2 Flow Rate FiO2 12/31/16 08:08 71 12/31/16 07:46 97.6 19 88/59 95 12/31/16 07:32 Nasal Cannula 3.0 12/29/16 03:02 27 Intake and Output 12/30/16 12/30/16 12/31/16 15:00 23:00 07:00 Intake Total 480 ml 220 ml Output Total 712 ml 460 ml Balance -232 ml -240 ml Results Result Diagram: 12/31/1652012/31/16 0521 Results 24 hrs Laboratory Tests Test 12/31/16 05:21 White Blood Count 8.6 Red Blood Count 3.61 L Hemoglobin 10.0 L Hematocrit 33.8 L Mean Corpuscular Volume 93.6 Mean Corpuscular Hemoglobin 27.7 L Mean Corpuscular Hemoglobin Concent 29.6 L Red Cell Distribution Width 19.7 H Platelet Count 79 L Mean Platelet Volume 13.7 H Neutrophils % 61.8 Lymphocytes % 18.9 Monocytes % 16.5 H Eosinophils % 1.5 Basophils % 0.6 Nucleated Red Blood Cells % 0.0 Neutrophils # 5.3 Lymphocytes # 1.6 Monocytes # 1.4 H Eosinophils # 0.1 Basophils # 0.1 Nucleated Red Blood Cells # 0.0 Sodium Level 138 Potassium Level 4.7 Chloride Level 86 L Carbon Dioxide Level 43 *H Anion Gap 14 Blood Urea Nitrogen 16 Creatinine 0.73 Glucose Level 89 Calcium Level 8.1 L Phosphorus Level 3.5 Magnesium Level 2.0 Medications Medications Current Medications Docusate Sodium (Colace) 100 mg DAILY PO Last administered on 12/30/16 08:31; Admin Dose 100 MG; Start 12/28/16 at 09:00 Famotidine (Pepcid) 20 mg DAILY PO Last administered on 12/30/16 08:31; Admin Dose 20 MG; Start 12/28/16 at 09:00 Ferrous Sulfate (Ferrous Sulfate (Ec)) 325 mg DAILY PO Last administered on 08:31; Admin Dose 325 MG; Start 12/28/16 at 09:00 Fluticasone Propionate (Flonase 0.05% Nasal) 1 spray DAILY PRN NASAL PRN Last administered on 12/30/16 00:01; Admin Dose 1 SPRAY; Start 12/28/16 at 03:00 Salmeterol Xinafoate/ Fluticasone (Advair 250/50 Diskus) 1 inh BID INH Last administered on 12/30/16 21:52; Admin Dose 1 INH; Start 12/28/16 at 09:00 Spironolactone (Aldactone) 25 mg BID PO Last administered on 12/30/16 21:53; Admin Dose 25 MG; Start 12/28/16 at 09:00 Ondansetron HCl (Zofran Inj) 4 mg Q6H PRN IV NAUSEA AND/OR VOMITING; Start at 03:00 Nitroglycerin (Nitroglycerin (Sl Tab) 0.4 Mg) 1 tab Q5M PRN SL CHEST PAIN; Start 12/28/16 at 03:00 Acetaminophen (Tylenol Tab) 650 mg Q6H PRN PO PAIN LEVEL 1-3 OR FEVER; Start at 03:00 Morphine Sulfate (morphine) 2 mg Q4H PRN IV PAIN LEVEL 7-10; Start 12/28/16 at 03:00 Docusate Sodium (Colace) 100 mg Q12H PRN PO CONSTIPATION; Start 12/28/16 at 03: 00 Magnesium Hydroxide (Milk Of Mag) 30 ml DAILY PRN PO CONSTIPATION Last administered on 12/29/16 16:00; Admin Dose 30 ML; Start 12/28/16 at 03:00 Bisacodyl (Dulcolax Supp) 10 mg DAILY PRN [place] CONSTIPATION; Start 12/28/16 at 03 :00 Digoxin (Digoxin) 0.125 mg DAILY@13 PO Last administered on 12/30/16 13:06; Admin Dose 0.125 MG; Start 12/29/16 at 13:00 Apixaban (Eliquis) 5 mg BID PO Last administered on 12/30/16 21:53; Admin Dose 5 MG; Start 12/28/16 at 21:00 Metoprolol Tartrate (Lopressor) 25 mg Q8 PO Last administered on 12/31/16 06: 11; Admin Dose 25 MG; Start 12/30/16 at 06:00 SALLY HINES MD Dec 31, 2016 09:37
[2016-12-31] MEDS: FERROUS SULFATE (EC) 325 MG TAB PO SCH (09:38)
[2016-12-31] MEDS: DOCUSATE SODIUM 100 MG CAP PO SCH (09:38)
[2016-12-31] MEDS: FAMOTIDINE 20 MG TAB PO SCH (09:38)
[2016-12-31] MEDS: SPIRONOLACTONE 25 MG TAB PO SCH (09:38)
[2016-12-31] MEDS: APIXABAN 5 MG TABLET PO SCH (09:38)
[2016-12-31] MEDS: BALSAM PERU/CASTOR OIL 60 GM TUBE TOP SCH (09:38)
[2016-12-31] MEDS: SALMETEROL/FLUTICASONE 250/50 INHA INH SCH (09:38)
--- NOTE | 2016-12-31 13:06 | PDOCDIS ---
Discharge Instructions CONDITION Patient Condition: Good HOME CARE INSTRUCTIONS: Diet Instructions: Low Fat /CholesterolSpecial Diet: low fat, low chol ACTIVITY: Activity Restrictions: Slowly Increase Activity Bathing Restrictions: Shower FOLLOW UP/APPOINTMENTS Follow-up Plan Follow-up with Dr. Harrell and PCP in 5-7 days SCHOOL/WORK RELEASE May return to School/Work with: No Restrictions LAURA RICO MD Dec 31, 2016 13:06
[2016-12-31] MEDS ORDERED: METO-448 PO (13:23)
[2016-12-31] MEDS ORDERED: DIGO125T PO (13:23)
[2016-12-31] MEDS ORDERED: LAS20 PO (13:23)
[2016-12-31] MEDS ORDERED: APIX5TAB PO (13:23)
--- NOTE | 2016-12-31 13:43 | DS ---
Date/Time of Note Date/Time of Note DATE: 12/31/16 TIME: 13:32 Discharge Summary Admission/Discharge Info Admit Date/Time Dec 28, 2016 at 01:31 Discharge Date/Time December 31 2016 at 1:35 pm Discharge Diagnosis CHF: Improving; continue diuresis with lasix 20 mg daily, aldactone 25 mg BID, lopressor 25 mg BID, digoxin 0.125 mg daily, and eliquis 5 mg BID. These medications/doses were made by Dr. Leiva on the day of discharge. Cardiomyopathy: Improving; continue medications as above; EF 40-45% Atrial Fibrillation: Improving; rate controlled with lopressor; Eliquis for anti-coagulation Hypothyroidism: Stable; continue synthroid Patient Condition: Stable Consults Procedures Echocardiogram Report Patient Name: CARLA POLLARD Gender: Male Date: 1935 Study Date: 28-Dec-2016 Lead Performance Support Analyst: Josy [facility] Location: 529 Ref. Physician: INNA MURPHY Quality: Adequate Procedures: Transthoracic echocardiogram with complete 2D, M-Mode, and doppler examination. Indications: Congestive Heart Failure, A.Fib. 2D/M Mode Doppler Measurement Value Normal Ranges Measurement Value Normal Ranges LVIDd 2D 3.6 3.5 - 5.6 cm FENG Vmax 0.5 cm2 LVIDs 2D 3.2 2.1 - 4.1 cm FENG VTI 0.5 cm2 FS 2D 11.1 % AV Mean Josiah 1.9 m/sec LVPWd 2D 1.1 0.6 - 1.1 cm AV Mean PG 18.0 mmHg IVSd 2D 0.9 0.6 - 1.1 cm AV Peak Josiah 2.8 m/sec IVS/LVPW 2D 0.8 AV Peak PG 32.0 mmHg AoR Diam 2D 3.1 2.0 - 3.7 cm AV VTI 56.5 cm LA/Ao 2D 2 0 - 1 LVOT Mean Josiah 0.4 m/sec EDV 2D 46.7 cm3 LVOT Mean PG 1.0 mmHg ESV 2D 32.8 cm3 LVOT Peak Josiah 0.6 m/sec LA Dimen 2D 5.2 2.3 - 4.0 cm LVOT Peak PG 2.0 mmHg LVOT Diam 1.6 cm LVOT VTI 13.2 cm LVOT Area 2.0 cm2 MV E Peak Josiah 1.8 m/sec MV PHT 69.0 msec MV Peak Josiah 1.8 m/sec MV Peak PG 14.0 mmHg MV Mean Josiah 0.8 m/sec MV Mean PG 4.0 mmHg MV Decel Time 130 msec MV Decel [place] 8 MV PHT Peak Josiah 1.8 m/sec MV PHT 69.0 msec MV VTI 30.4 cm MVA PHT 3.2 cm2 MVA VTI 0.9 cm TR Peak Josiah 2.8 m/sec TR Peak PG 32.0 mmHg RVSP 53.0 mmHg Findings Left Ventricle: Normal left ventricular cavity size. Normal left ventricular wall thickness. Reduced left ventricular cavity size. Mild to moderate left ventricular systolic dysfunction. Ejection fraction is visually estimated at 4045 %. Abnormal Diastolic Function. Right Ventricle: Moderate enlargement of right ventricle. Moderate to severe right ventricular hypokinesis. Left Atrium: There is moderate enlargement of left atrium. Right Atrium: There is moderate enlargement of right atrium. Mitral Valve: Mitral valve leaflets appear mildly thickened. Mild mitral annular calcification. Mild mitral valve regurgitation. The regurgitation jet is eccentrically directed which may underestimate the severity of mitral regurgitation. Aortic Valve: Mild aortic stenosis. Max PG 33.00 mmHg. Mean PG 18.00 mmHg. Aortic cusps appear moderately calcified. Trace aortic valve regurgitation. Tricuspid Valve: Estimated peak PA systolic pressure 53 mmHg. Tricuspid valve appears mildly thickened. There is mild to moderate tricuspid regurgitation. Pulmonic Valve: Pulmonic valve not well visualized. There is trace pulmonic regurgitation. Pericardium: Normal pericardium with no significant pericardial effusion. Left pleural effusion seen. Aorta: Normal aortic root. IVC: Dilated inferior vena cava with poor inspiratory collapse consistent with elevated right atrial pressures. Conclusions Normal left ventricular cavity size. Normal left ventricular wall thickness. Reduced left ventricular cavity size. Mild to moderate left ventricular systolic dysfunction. Ejection fraction is visually estimated at 40-45 %. Abnormal Diastolic Function. Moderate enlargement of right ventricle. Moderate to severe right ventricular hypokinesis. There is moderate enlargement of left atrium. There is moderate enlargement of right atrium. Mild mitral valve regurgitation. The regurgitation jet is eccentrically directed which may underestimate the severity of mitral regurgitation. Mild aortic stenosis. Trace aortic valve regurgitation. Estimated peak PA systolic pressure 53 mmHg. There is mild to moderate tricuspid regurgitation. Normal pericardium with no significant pericardial effusion. Left pleural effusion seen. Hx of Present Illness CC: Shortness of breath, dyspnea on exertion This is a 81-year-old male with known pulmonary fibrosis and chronic hypoxemia oxygen dependent 3 L nasal cannula, congestive heart failure diastolic so far who presented to the emergency department again with episode of for volume overload anasarca, paroxysmal nocturnal dyspnea, orthopnea and dyspnea on exertion, he also was noted to have increased abdominal girth. In the emergency department, he received Lasix 80 mg IV 1 and was subsequently started on a Bumex drip today. Also upon presentation this time he has been in atrial fibrillation. Patient has had these recurrent episodes of volume overload more often recently even while being on Bumex. Cardiology, Dr. Murphy, has been consulted. He will be seeing the patient he agrees to repeating the echocardiogram at this time. Patient again being diuresed, I will place him on treatment dose of Lovenox. Cardiac enzymes are negative. Patient reports shortness of breath, dyspnea on exertion, paroxysmal nocturnal orthopnea for 24 hours prior to presentation. Today he feels much better post diuresis. Hospital Course He was diuresed and his medications were modified to achieve optimal control of his CHF and atrial fibrillation. Dr. Leiva and I discussed the case in detail on the day of discharge. Dr. Leiva recommended some modifications to his meds , which are outlined above as well as close outpatient follow-up. At the time of discharge, he was tolerating a cardiac diet and was not dyspneic. Also, he was able to lie flat with shortness of breath. Furthermore, his LE edema was nearly resolved. Home Meds Active Scripts Bumetanide* (Bumetanide*) 1 Mg Tablet, 1 MG PO DAILY for 30 Days, TAB 3 Refills Prov:JUANITA RONQUILLO 11/15/16 Salmeterol Xinaf/Fluticasone* (Advair*) 250-50 Diskus Inhaler, 1 INH INH BID, # 1 3 Refills Prov:JUANITA RONQUILLO 07/06/16 Ipratropium-Albuterol (Ipratropium-Albuterol) 0.5-3 Mg/3 Ml Ampul.neb, 3 ML HHN Q8H RESP THERAPY for 30 Days Prov:JUANITA RONQUILLO 10/19/15 Reported Medications Spironolactone* (Aldactone*) 25 Mg Tablet, 25 MG PO BID, #60 TAB 12/28/16 Famotidine* (Famotidine*) 20 Mg Tablet, 20 MG PO DAILY, #30 TAB 10/27/16 Umeclidinium [place] (Incruse Ellipta) 62.5 Mcg Blst.w.dev, 62.5 MCG IH 1PUFF DAILY 10/27/16 Albuterol Sulfate* (Ventolin HFA*) 18 Gm Hfa.aer.ad, 2 PUFF INHALATION Q4H, #1 INHALER 10/27/16 Docusate Sodium* (Docusate Sodium*) 100 Mg Capsule, 100 MG PO DAILY, #30 CAP 07/02/16 Ferrous Sulfate* (Ferrous Sulfate*) 325 Mg Tabec, 325 MG PO DAILY, TAB 07/02/16 Fluticasone Propionate* (Fluticasone Propionate* Nasal) 50 Mcg/[place] - 16 Gm [place].susp, 1 SPRAY NASAL DAILY Y for PRN, #1 BOTTLE TO EACH NOSTRIL 01/14/16 Levothyroxine Sodium* (Levothyroxine Sodium*) 150 Mcg Tablet, 150 MCG PO BEFORE BREAKFAST, #30 TAB 01/14/16 Follow-up Plan Dr. Murphy/Sharri in 5-7 days Primary Care Provider Tremayne Alejandro: PCP to see patient in 1-2 weeks Time spent on discharge: > 30 minutes Pending Labs Laboratory Tests Test 12/31/16 05:21 White Blood Count 8.610^3/ul (4.8-10.8) Red Blood Count 3.6110^6/ul (4.70-6.10) Hemoglobin 10.0g/dl (14.0-18.0) Hematocrit 33.8% (42.0-52.0) Mean Corpuscular Volume 93.6fl (82.0-101.0) Mean Corpuscular Hemoglobin 27.7pg (29.0-33.0) Mean Corpuscular Hemoglobin Concent 29.6g/dl (32.0-37.0) Red Cell Distribution Width 19.7% (11.5-14.5) Platelet Count 7910^3/UL (140-415) Mean Platelet Volume 13.7fl (7.4-10.4) Neutrophils % 61.8% (39.0-77.0) Lymphocytes % 18.9% (15.0-51.0) Monocytes % 16.5% (0.0-11.0) Eosinophils % 1.5% (0.0-7.0) Basophils % 0.6% (0.0-2.0) Nucleated Red Blood Cells % 0.0/100WBC (0.0-0.0) Neutrophils # 5.310^3/ul (1.6-7.5) Lymphocytes # 1.610^3/ul (0.8-2.9) Monocytes # 1.410^3/ul (0.3-0.9) Eosinophils # 0.110^3/ul (0.0-0.5) Basophils # 0.110^3/ul (0.0-0.1) Nucleated Red Blood Cells # 0.010^3/ul (0.0-0.0) Sodium Level 138mmol/L (135-144) Potassium Level 4.7mmol/L (3.5-5.1) Chloride Level 86mmol/L (97-110) Carbon Dioxide Level 43mmol/L (21-31) Anion Gap 14 (8-16) Blood Urea Nitrogen 16mg/dl (7-20) Creatinine 0.73mg/dl (0.61-1.24) Glucose Level 89mg/dl (70-220) Calcium Level 8.1mg/dl (8.4-10.2) Phosphorus Level 3.5mg/dl (2.5-4.9) Magnesium Level 2.0mg/dl (1.7-2.5) LAURA RICO MD Dec 31, 2016 13:42
[2016-12-31] MEDS: DIGOXIN 0.125 MG TAB PO SCH (14:17)
[2016-12-31] MEDS ORDERED: METOPROLOL 25 MG TAB PO SCH (21:00)
[2017-01-01] MEDS ORDERED: FUROSEMIDE 20 MG TAB PO SCH (09:00)
== END 2016-12-31 16:20 | disposition home or self-care (01) | DRG 291 ==
LOC: E/R 23:33 → TEL 12-28 01:31
PROVIDERS: ADMIT Internal Medicine; ATTEND Internal Medicine
DX: I11.0 Hypertensive heart disease with heart failure (principal); L89.893 Pressure ulcer of other site, stage 3; J84.10 Pulmonary fibrosis, unspecified; R06.00 Dyspnea, unspecified; R13.10 Dysphagia, unspecified; I27.2 Other secondary pulmonary hypertension; I42.9 Cardiomyopathy, unspecified; J98.11 Atelectasis; I48.91 Unspecified atrial fibrillation; I34.0 Nonrheumatic mitral (valve) insufficiency; I50.43 Acute on chronic combined systolic (congestive) and diastolic (congestive) heart failure; I07.1 Rheumatic tricuspid insufficiency; E03.9 Hypothyroidism, unspecified; Z99.81 Dependence on supplemental oxygen
CPT/HCPCS: 36415; 36600; 71010; 80048; 80053; 82550; 82553; 82803; 83735; 83880; 84100; 84439; 84443; 84484; 85025; 85610; 85730; 93005; 93306; 94640; 96374; 96375; J1940; J1650; J2270

== ENCOUNTER 2017-01-14 23:13 | Inpatient (IN) | payer OTHER ==
[~2017-01-14] VITALS: Ht 165.1 cm; Wt 76.7 kg
[~2017-01-14 23:13] MED LIST changes: +APIX5TAB PO; -BUME1TAB18 PO; +DIGO125T PO; -IPRA3AMP HHN; +LAS20 PO; +METO-448 PO; +SPIR25TA PO
[2017-01-15] VITALS (10 sets, daily range): BP systolic 99–115; BP diastolic 61–73; PULSE 67–123; RESP 16–20; TEMP 98.3; Ht 165.1 cm; Wt 76.7 kg
[2017-01-15] MEDS ORDERED: ASPIRIN 81 MG TAB PO ONE (01:00)
--- NOTE | 2017-01-15 01:27 | RADRPT ---
PROCEDURE: CHEST - 1 VIEW CLINICAL INDICATION: 81-year-old male with chest pain. TECHNIQUE: A single frontal AP portable view of the chest was performed. The images were reviewed on a PACS workstation. COMPARISON: Chest x-ray December 29, 2016; chest x-ray November 14, 2016; CT chest November 13, 2016. FINDINGS: The cardiomediastinal silhouette is enlarged. The thoracic aortic arch is calcified. The lung apic es are partially obscured by the patient's mandible. There is pulmonary vascular congestion. This is superimposed on chronic fibrosing interstitial lung disease. There is a shallow inspiration. The re is bilateral lower lung zone atelectasis. There is questionable small left pleural effusion. The re is no evidence for pneumothorax. The osseous structures are intact. IMPRESSION: 1. Cardiomegaly. 2. Calcified thoracic aortic arch. 3. Pulmonary vascular congestion superimposed on preexisting chronic fibrosing interstitial lung di sease. 4. Shallow inspiration with bilateral lower lung zone atelectasis and questionable small left pleur al effusion. A superimposed infectious process cannot be excluded. Clinical correlation is necessa ry. .Lauri Rendon MD, Date Time Electronically viewed and signed by .Lauri Rendon MD, on 01/15/2017 01:27 .M/
[2017-01-15 01:44] LABS: ABNORMAL IP MESSAGE 1; BASOPHILS % 0.5 % (0.0-2.0); EOSINOPHILS # 0.1 10^3/ul (0.0-0.5); EOSINOPHILS % 0.7 % (0.0-7.0); HEMATOCRIT 33.2 % (42.0-52.0); HEMOGLOBIN 9.9 g/dl (14.0-18.0); LYMPHOCYTES # 1.8 10^3/ul (0.8-2.9); LYMPHOCYTES % 24.8 % (15.0-51.0); MEAN CORPUSCULAR HEMOGLOBIN 27.8 pg (29.0-33.0); MEAN CORPUSCULAR HGB CONC 29.8 g/dl (32.0-37.0); MEAN CORPUSCULAR VOLUME 93.3 fl (82.0-101.0); MEAN PLATELET VOLUME 13.6 fl (7.4-10.4); MONOCYTE # 1.1 10^3/ul (0.3-0.9); MONOCYTES % 15.6 % (0.0-11.0); NEUTROPHIL # 4.2 10^3/ul (1.6-7.5); NEUTROPHILS % 57.9 % (39.0-77.0); PLATELET COUNT 86 10^3/UL (140-415); POSITIVE DIFF @See below; RED BLOOD COUNT 3.56 10^6/ul (4.70-6.10); RED CELL DISTRIBUTION WIDTH 19.7 % (11.5-14.5); WHITE BLOOD COUNT 7.3 10^3/ul (4.8-10.8)
--- NOTE | 2017-01-15 01:51 | ERA ---
ER Documentation Chief Complaint Date/Time DATE: 01/15/17 TIME: 01:49 Chief Complaint SOB, pt has hx CHF and Lasix increases HPI This 81-year-old male is brought in by family for increasing shortness of breath as well as poor urinary put on Bumex. Patient states is increasing short of breath and cannot lay down at all. Family also notes that the patient takes in hardly any fluid in the been giving him his diuretics but he has not been able to produce more than a small amount of urine. He has had some chest discomfort but denies chest pain currently. No fever or chills. ROS All systems reviewed and are negative except as per history of present illness. Medications Home Meds Active Scripts Furosemide (Lasix) 20 Mg Tab, 20 MG PO DAILY for 30 Days, #30 TAB Prov:LAURA RICO MD 12/31/16 Metoprolol Tartrate* (Lopressor*) 25 Mg Tab, 25 MG PO Q12 for 30 Days, #60 TAB Prov:LAURA RICO MD 12/31/16 Digoxin* (Digitek*) 125 Mcg Tablet, 0.125 MG PO DAILY@13 for 30 Days, #30 TAB Prov:LAURA RICO MD 12/31/16 Apixaban* (Eliquis*) 5 Mg Tablet, 5 MG PO BID for 30 Days, #60 TAB Prov:LAURA RICO MD 12/31/16 Salmeterol Xinaf/Fluticasone* (Advair*) 250-50 Diskus Inhaler, 1 INH INH BID, # 1 3 Refills Prov:JUANITA RONQUILLO 07/06/16 Reported Medications Spironolactone* (Aldactone*) 25 Mg Tablet, 25 MG PO BID, #60 TAB 12/28/16 Famotidine* (Famotidine*) 20 Mg Tablet, 20 MG PO DAILY, #30 TAB 10/27/16 Umeclidinium [place] (Incruse Ellipta) 62.5 Mcg Blst.w.dev, 62.5 MCG IH 1PUFF DAILY 10/27/16 Albuterol Sulfate* (Ventolin HFA*) 18 Gm Hfa.aer.ad, 2 PUFF INHALATION Q4H, #1 INHALER 10/27/16 Docusate Sodium* (Docusate Sodium*) 100 Mg Capsule, 100 MG PO DAILY, #30 CAP 07/02/16 Ferrous Sulfate* (Ferrous Sulfate*) 325 Mg Tabec, 325 MG PO DAILY, TAB 07/02/16 Fluticasone Propionate* (Fluticasone Propionate* Nasal) 50 Mcg/[place] - 16 Gm [place].susp, 1 SPRAY NASAL DAILY Y for PRN, #1 BOTTLE TO EACH NOSTRIL 01/14/16 Levothyroxine Sodium* (Levothyroxine Sodium*) 150 Mcg Tablet, 150 MCG PO BEFORE BREAKFAST, #30 TAB 01/14/16 Allergies Allergies: Coded Allergies: No Known Allergy (Unverified , 12/28/16) PMhx/Soc History of Surgery: No Anesthesia Reaction: No Hx 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 Disorder: No Hx Respiratory Disorders: Yes (pulmonary edema, pumonary fibrosis,COPD) Hx Cardiac Disorders: Yes (A FIB,CHF) Hx Psychiatric Problems: No Hx Miscellaneous Medical Probl: Yes (thyroid problem) Hx Alcohol Use: Yes (hx ETOH abuse) Hx Substance Use: No Hx Tobacco Use: Yes (quit) Smoking Status: Former smoker Physical Exam Vitals Vital Signs Date Time Temp Pulse Resp B/P Pulse Ox O2 Delivery O2 Flow Rate FiO2 01/15/17 01:43 Nasal Cannula 4 01/15/17 01:37 98.3 82 20 100/65 97 Room Air 01/14/17 23:17 98.3 68 28 106/72 97 Physical Exam Const: [] Mild distress, appears uncomfortable Head: Atraumatic Eyes: Normal Conjunctiva ENT: Normal External Ears, Nose and Mouth. Neck: Full range of motion..~ No meningismus. Resp: Mild tachypnea and markedly decreased bibasilar breath sounds with coarse rales on the left. Cardio: Irregularly irregular, no murmurs Abd: Soft, non tender, mild to moderate distention with positive fluid. Normal bowel sounds Skin: No petechiae or rashes Back: No midline or flank tenderness Ext: No cyanosis, or bilateral lower extremity edema Neur: Awake and alert and oriented, no focal deficit Psych: Somewhat anxious Result Diagram: 01/15/1711201/15/17112 Results 24 hrs Laboratory Tests Test 01/15/17 01:13 White Blood Count 7.310^3/ul Red Blood Count 3.5610^6/ul Hemoglobin 9.9g/dl Hematocrit 33.2% Mean Corpuscular Volume 93.3fl Mean Corpuscular Hemoglobin 27.8pg Mean Corpuscular Hemoglobin Concent 29.8g/dl Red Cell Distribution Width 19.7% Platelet Count 8610^3/UL Mean Platelet Volume 13.6fl Neutrophils % 57.9% Lymphocytes % 24.8% Monocytes % 15.6% Eosinophils % 0.7% Basophils % 0.5% Nucleated Red Blood Cells % 0.0/100WBC Neutrophils # 4.210^3/ul Lymphocytes # 1.810^3/ul Monocytes # 1.110^3/ul Eosinophils # 0.110^3/ul Basophils # 0.010^3/ul Nucleated Red Blood Cells # 0.010^3/ul Prothrombin Time 20.1Sec Prothrombin Time Ratio 1.6 INR International Normalized Ratio 1.70 Activated Partial Thromboplast Time 37.4Sec Sodium Level 139mmol/L Potassium Level 4.2mmol/L Chloride Level 94mmol/L Carbon Dioxide Level 40mmol/L Anion Gap 9 Blood Urea Nitrogen 18mg/dl Creatinine 0.71mg/dl Glucose Level 87mg/dl Calcium Level 8.0mg/dl Total Bilirubin 0.5mg/dl Direct Bilirubin 0.00mg/dl Indirect Bilirubin 0.5mg/dl Aspartate Amino Transf (AST/SGOT) 25IU/L Alanine Aminotransferase (ALT/SGPT) 16IU/L Alkaline Phosphatase 184IU/L Creatine Kinase < 20IU/L Creatine Kinase Index Creatinine Kinase MB (Mass) 1.26ng/ml Troponin I < 0.012ng/ml B-Type Natriuretic Peptide 8840PG/ML Total Protein 8.4g/dl Albumin 3.2g/dl Current Medications Medications (Trade) Dose Ordered Sig/Jose Daniel Route PRN Reason Start Time Stop Time Status Last Admin Dose Admin Aspirin (Aspirin) 324 mg ONCE ONCE PO 01/15/17 01:00 01/15/17 01:01 DC 01/15/17 01:43 Bumetanide (Bumex) 1 mg NOW ONCE IV 01/15/17 03:30 01/15/17 03:31 DC 01/15/17 03:38 Ondansetron HCl (Zofran Inj) 4 mg ER BRIDGE PRN IV NAUSEA AND/OR VOMITING 01/15/17 05:30 01/16/17 05:29 Acetaminophen (Tylenol Tab) 650 mg ER BRIDGE PRN PO MILD PAIN/FEVER 01/15/17 05:30 01/16/17 05:29 Procedures/MDM Chronic congestive heart failure with acute exacerbation as well as decreased urine output. The patient's primary treatment is diuresis with p.o. medications and even IV Bumex which she was given 1 mg in the emergency room or not producing significant urine output the patient will need to be admitted for further management. Is also given aspirin. Spoke with , who be admitting the patient to telemetry. EKG interpretation: Atrial fibrillation rate of 68, right axis deviation,, low voltage with possible T-wave flattening in most leads, no ST elevations or depressions concerning for acute ischemia. bus monitor interpretation: A. fib that is rate controlled with no other arrhythmias Chest x-ray interpretation: Engorgement of pulmonary vasculature with possible lower lung pulmonary edema superimposed on fibrotic lung changes that are chronic and present on prior x-rays. Mild CHF and pleural effusions. No fractures or pneumothorax. Unable to evaluate for infiltrates Departure Diagnosis: Primary Impression: Congestive heart failure Additional Impressions: Decreased urine output Thrombocytopenia Dyspnea Condition: Serious KERWIN SPIVEY Jan 15, 2017 01:51
[2017-01-15 02:01] LABS: INR 1.7; PROTIME 20.1 Sec (12.2-14.2); PT RATIO 1.6
[2017-01-15 02:02] LABS: PARTIAL THROMBOPLASTIN TIME 37.4 Sec (25.0-35.0)
[2017-01-15 02:09] LABS: BLOOD UREA NITROGEN 18 mg/dl (7-20); CHLORIDE 94 mmol/L (97-110); CREATININE 0.71 mg/dl (0.61-1.24); GLUCOSE 87 mg/dl (70-220); POTASSIUM 4.2 mmol/L (3.5-5.1); SODIUM 139 mmol/L (135-144)
[2017-01-15 02:21] LABS: B-TYPE NATRIURETIC PEPTIDE 8840 PG/ML (0-450)
[2017-01-15 02:52] LABS: ANION GAP 9 (8-16)
[2017-01-15 02:55] LABS: CREATINE KINASE < 20 IU/L (23-200)
[2017-01-15 02:56] LABS: CREATINE KINASE < 20 IU/L (23-200)
[2017-01-15 03:00] LABS: CARBON DIOXIDE 40 mmol/L (21-31); TROPONIN-I < 0.012 ng/ml (0.00-0.12)
[2017-01-15 03:18] LABS: CK-MB 1.26 ng/ml (0.0-2.4); TROPONIN-I < 0.012 ng/ml (0.00-0.12)
[2017-01-15 03:22] LABS: CK-MB 1.27 ng/ml (0.0-2.4); TROPONIN-I < 0.012 ng/ml (0.00-0.12)
[2017-01-15] MEDS ORDERED: BUMETANIDE 1 MG INJ IV ONE (03:30)
[2017-01-15 04:51] LABS: ALBUMIN 3.2 g/dl (3.3-4.9); BILIRUBIN,INDIRECT 0.5 mg/dl (0-1.1); BILIRUBIN,TOTAL 0.5 mg/dl (0.2-1.3); TOTAL PROTEIN 8.4 g/dl (6.1-8.1)
[2017-01-15] MEDS ORDERED: ONDANSETRON 4 MG INJ IV PRN ×2 (05:30→09:00)
[2017-01-15] MEDS ORDERED: ACETAMINOPHEN 325 MG TAB PO PRN ×2 (05:30→09:00)
[2017-01-15] MEDS ORDERED: FLUTICASONE 0.05% 16 GM NAS SPRAY NASAL PRN (09:00)
[2017-01-15] MEDS ORDERED: NACL 0.9% 3 ML SYG IV SCH (09:00)
[2017-01-15] MEDS ORDERED: NITROGLYCERIN (SL) 0.4 MG TAB SL PRN (09:00)
[2017-01-15] MEDS ORDERED: BISACODYL 10 MG SUPP PR PRN (09:00)
[2017-01-15] MEDS: METOPROLOL 25 MG TAB PO SCH ×2 (09:00→20:49)
[2017-01-15] MEDS ORDERED: DOCUSATE SODIUM 100 MG CAP PO PRN (09:00)
[2017-01-15] MEDS ORDERED: LORAZEPAM 2 MG INJ IV PRN (09:00)
[2017-01-15] MEDS ORDERED: MAGNESIUM HYDROXIDE 30ML CUP PO PRN (09:00)
[2017-01-15] MEDS ORDERED: NON-FORMULARY/PATIENT OWN MED (Umeclidinium Bromide (Incruse Ellipta) 62.5 MCG) IH SCH (09:00)
[2017-01-15] MEDS ORDERED: IPRATROPIUM (NEB) 0.5 MG/2.5 ML AMP HHN PRN (09:00)
[2017-01-15] MEDS: FAMOTIDINE 20 MG TAB PO SCH (09:57)
[2017-01-15] MEDS: FERROUS SULFATE (EC) 325 MG TAB PO SCH (09:57)
[2017-01-15] MEDS: SPIRONOLACTONE 25 MG TAB PO SCH ×2 (09:57→20:48)
[2017-01-15] MEDS: DOCUSATE SODIUM 100 MG CAP PO SCH (09:57)
[2017-01-15] MEDS: APIXABAN 5 MG TABLET PO SCH ×2 (09:57→20:48)
[2017-01-15] MEDS ORDERED: BUMETANIDE 6 MG in DEXTROSE 5% 36 ML IV ONE (10:00)
[2017-01-15] MEDS ORDERED: [UNRECOGNIZED DRUG - REMARK] XX SCH (11:00)
[2017-01-15] MEDS: SALMETEROL/FLUTICASONE 250/50 INHA INH SCH ×2 (11:08→20:49)
[2017-01-15] MEDS: METOLAZONE 2.5 MG TAB PO SCH (11:10)
[2017-01-15 11:46] LABS: CREATINE KINASE < 20 IU/L (23-200)
[2017-01-15 11:54] LABS: CK-MB 1.29 ng/ml (0.0-2.4); TROPONIN-I < 0.012 ng/ml (0.00-0.12)
[2017-01-15] MEDS: DIGOXIN 0.125 MG TAB PO SCH (12:12)
--- NOTE | 2017-01-15 12:23 | HP ---
Date/Time of Note Date/Time of Note DATE: 01/15/17 TIME: 12:07 Assessment/Plan VTE Prophylaxis VTE Prophylaxis Intervention: other (Eliquis) Lines/Catheters IV [facility]from [facility] Saline Lock Urinary Cath still in place: No Assessment/Plan Assessment/Plan 81-year-old male; 1. Recurrent CHF exacerbation, cardiomyopathy with both systolic dysfunction EF 40% and diastolic dysfunction. 2D echocardiogram already done a couple weeks ago, on previous admission. He again has significant anasarca and orthopnea. He received Bumex in ER, starting Bumex drip again on this admission. Continue spironolactone. Metolazone added. Replete electrolytes as needed Cardiac enzymes negative 2. Atrial fibrillation, rate controlled on this admission, continue outpatient medications. Also on Eliquis for stroke prophylaxis, to be continued. Replete K and mag while being diuresed. 3. Hypertension: Continue current medications 4. Hypothyroidism: continue levothyroxine 5. Moderate pulmonary fibrosis at least, oxygen dependent with chronic hypoxemia. Continue Advair and nebulizer treatment and oxygen supplement. Prophylaxis: Pepcid for GI prophylaxis, patient on full anticoagulation with Eliquis in setting of A. fib Disposition: Diuresis. HPI/ROS Admit Date/Time Admit Date/Time Jan 15, 2017 at 05:08 Hx of Present Illness Chief complaint: Shortness of breath, lower extremity edema with blisters History of presenting illness: 81-year-old male, well-known to me, he does have both systolic and diastolic congestive heart failure, also atrial fibrillation, chronic hypoxemia with known moderate pulmonary fibrosis, likely right heart failure who again presented to the emergency department with complaint of worsening lower extremity edema, paroxysmal nocturnal dyspnea and orthopnea for the past 3-4 days. Patient was discharged on Bumex 2 weeks ago, however on his medication list again he has Lasix listed, he reports that he was told to take 1/2 pill which amounts to 20 mg daily which would not be enough for him to diurese. Patient has had minimal urine output over the past 3 days. He denies any chest pain, nausea, vomiting. He reports occasional palpitations and he is known to have atrial fibrillation. He reports compliance with these medications as prescribed lately. He denies fevers, chills He does have fluid blisters on his lower extremities He is otherwise in his usual 2-3 nasal cannula for O2 support. ROS Constitutional: other (Anasarca) Cardiovascular: edema (Anasarca), orthopenea, other, palpitations (Occasional) , paroxysmal nocturnal dyspnea Gastrointestinal: no complaints Genitourinary: other (Significantly decreased urine output) Musculoskeletal: no complaints Neurologic: no complaints Endocrine: no complaints PMH/Family/Social Past Medical History Pulmonary fibrosis, moderate, chronic hypoxemia, oxygen dependent. Congestive heart failure, as 2 weeks ago, EF of 40 %. 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 Family History Significant Family History: no pertinent family hx Social History Alcohol Use: none Smoking Status: Former smoker Drug Use: none Exam/Review of Systems Vital Signs Vitals Vital Signs Date Time Temp Pulse Resp B/P Pulse Ox O2 Delivery O2 Flow Rate FiO2 01/15/17 12:02 96.1 84 16 99/64 92 01/15/17 08:15 Nasal Cannula 3.0 Exam Constitutional: alert, frail, oriented Respiratory: diminished breath sounds (Bilaterally, 1/2 the lung mccall down to bases), normal air movement Cardiovascular: irregular rhythm (Atrial fibrillation, rate controlled) Gastrointestinal: non-tender, soft Musculoskeletal: swelling (Anasarca) Extremities: edema (Anasarca +3 at least), normal pulses 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: HAND CULTIVATOR II-XII intact, nl mental status, nl speech, nl strength (At baseline) Skin: other (Water blisters on his lower extremities) Labs Result Diagram: 01/15/1711201/15/17 0113 Medications Medications Home medications: See medication reconciliation on admission Current Medications Apixaban (Eliquis) 5 mg BID PO Last administered on 01/15/17 09:57; Admin Dose 5 MG; Start 01/15/17 at 09:00 Digoxin (Digoxin) 0.125 mg DAILY@13 PO ; Start 01/15/17 at 13:00 Docusate Sodium (Colace) 100 mg DAILY PO Last administered on 01/15/17 09:57; Admin Dose 100 MG; Start 01/15/17 at 09:00 Famotidine (Pepcid) 20 mg DAILY PO Last administered on 01/15/17 09:57; Admin Dose 20 MG; Start 01/15/17 at 09:00 Ferrous Sulfate (Ferrous Sulfate (Ec)) 325 mg DAILY PO Last administered on 09:57; Admin Dose 325 MG; Start 01/15/17 at 09:00 Fluticasone Propionate (Flonase 0.05% Nasal) 1 spray DAILY PRN NASAL PRN; Start 01/15/17 at 09:00 Metoprolol Tartrate (Lopressor) 25 mg Q12 PO ; Start 01/15/17 at 09:00 Salmeterol Xinafoate/ Fluticasone (Advair 250/50 Diskus) 1 inh BID INH Last administered on 01/15/17 11:08; Admin Dose 1 INH; Start 01/15/17 at 10:00 Spironolactone 25 mg 25 mg BID PO Last administered on 01/15/17 09:57; Admin Dose 25 MG; Start 01/15/17 at 09:00 Bumetanide/ Dextrose (Bumex/D5W) 60 ml @ 10 mls/hr Q6H ONCE IV ; Start 01/15/17 at 10:00; Stop 01/15/17 at 15:59 Lorazepam (Ativan) 0.5 mg Q6H PRN IV ANXIETY; Start 01/15/17 at 09:00 Ondansetron HCl (Zofran Inj) 4 mg Q6H PRN IV NAUSEA AND/OR VOMITING; Start at 09:00 Metolazone (Zaroxolyn) 2.5 mg DAILY PO Last administered on 01/15/17 11:10; Admin Dose 2.5 MG; Start 01/15/17 at 10:00 Nitroglycerin (Nitroglycerin (Sl Tab) 0.4 Mg) 1 tab Q5M PRN SL CHEST PAIN; Start 01/15/17 at 09:00 Acetaminophen (Tylenol Tab) 650 mg Q6H PRN PO PAIN LEVEL 1-3 OR FEVER; Start at 09:00 Docusate Sodium (Colace) 100 mg Q12H PRN PO CONSTIPATION; Start 01/15/17 at 09: 00 Magnesium Hydroxide (Milk Of Mag) 30 ml DAILY PRN PO CONSTIPATION; Start at 09:00 Bisacodyl (Dulcolax Supp) 10 mg DAILY PRN [place] CONSTIPATION; Start 01/15/17 at 09 :00 Miscellaneous Information (*Order Clarification Bulletin) MEDICATION REQUIRES CLARIFICATI... Q8H XX ; Start 01/15/17 at 11:00 Procedures Procedures PROCEDURE: CHEST - 1 VIEW CLINICAL INDICATION: 81-year-old male with chest pain. TECHNIQUE: A single frontal AP portable view of the chest was performed. The images were reviewed on a PACS workstation. COMPARISON: Chest x-ray December 29, 2016; chest x-ray November 14, 2016; CT chest November 13, 2016. FINDINGS: The cardiomediastinal silhouette is enlarged. The thoracic aortic arch is calcified. The lung apices are partially obscured by the patient's mandible. There is pulmonary vascular congestion. This is superimposed on chronic fibrosing interstitial lung disease. There is a shallow inspiration. There is bilateral lower lung zone atelectasis. There is questionable small left pleural effusion. There is no evidence for pneumothorax. The osseous structures are intact. IMPRESSION: 1. Cardiomegaly. 2. Calcified thoracic aortic arch. 3. Pulmonary vascular congestion superimposed on preexisting chronic fibrosing interstitial lung disease. 4. Shallow inspiration with bilateral lower lung zone atelectasis and questionable small left pleural effusion. A superimposed infectious process cannot be excluded. Clinical correlation is necessary. .Lauri Rendon MD, Date Time Electronically viewed and signed by .Lauri Rendon MD, on 01/15/2017 01:27 Echocardiogram Report Patient Name: CARLA POLLARD Gender: Male Date: 1935 Study Date: 28-Dec-2016 Charge Account Clerk: [facility]y [facility] Location: 529 Ref. Physician: JUSTIN MURPHY Quality: Adequate Procedures: Transthoracic echocardiogram with complete 2D, M-Mode, and doppler examination. Indications: Congestive Heart Failure, A.Fib. 2D/M Mode Doppler Measurement Value Normal Ranges Measurement Value Normal Ranges LVIDd 2D 3.6 3.5 - 5.6 cm FENG Vmax 0.5 cm2 LVIDs 2D 3.2 2.1 - 4.1 cm FENG VTI 0.5 cm2 FS 2D 11.1 % AV Mean Josiah 1.9 m/sec LVPWd 2D 1.1 0.6 - 1.1 cm AV Mean PG 18.0 mmHg IVSd 2D 0.9 0.6 - 1.1 cm AV Peak Josiah 2.8 m/sec IVS/LVPW 2D 0.8 AV Peak PG 32.0 mmHg AoR Diam 2D 3.1 2.0 - 3.7 cm AV VTI 56.5 cm LA/Ao 2D 2 0 - 1 LVOT Mean Josiah 0.4 m/sec EDV 2D 46.7 cm3 LVOT Mean PG 1.0 mmHg ESV 2D 32.8 cm3 LVOT Peak Josiah 0.6 m/sec LA Dimen 2D 5.2 2.3 - 4.0 cm LVOT Peak PG 2.0 mmHg LVOT Diam 1.6 cm LVOT VTI 13.2 cm LVOT Area 2.0 cm2 MV E Peak Josiah 1.8 m/sec MV PHT 69.0 msec MV Peak Josiah 1.8 m/sec MV Peak PG 14.0 mmHg MV Mean Josiah 0.8 m/sec MV Mean PG 4.0 mmHg MV Decel Time 130 msec MV Decel Howard 8 MV PHT Peak Josiah 1.8 m/sec MV PHT 69.0 msec MV VTI 30.4 cm MVA PHT 3.2 cm2 MVA VTI 0.9 cm TR Peak Josiah 2.8 m/sec TR Peak PG 32.0 mmHg RVSP 53.0 mmHg Findings Left Ventricle: Normal left ventricular cavity size. Normal left ventricular wall thickness. Reduced left ventricular cavity size. Mild to moderate left ventricular systolic dysfunction. Ejection fraction is visually estimated at 4045 %. Abnormal Diastolic Function. Right Ventricle: Moderate enlargement of right ventricle. Moderate to severe right ventricular hypokinesis. Left Atrium: There is moderate enlargement of left atrium. Right Atrium: There is moderate enlargement of right atrium. Mitral Valve: Mitral valve leaflets appear mildly thickened. Mild mitral annular calcification. Mild mitral valve regurgitation. The regurgitation jet is eccentrically directed which may underestimate the severity of mitral regurgitation. Aortic Valve: Mild aortic stenosis. Max PG 33.00 mmHg. Mean PG 18.00 mmHg. Aortic cusps appear moderately calcified. Trace aortic valve regurgitation. Tricuspid Valve: Estimated peak PA systolic pressure 53 mmHg. Tricuspid valve appears mildly thickened. There is mild to moderate tricuspid regurgitation. Pulmonic Valve: Pulmonic valve not well visualized. There is trace pulmonic regurgitation. Pericardium: Normal pericardium with no significant pericardial effusion. Left pleural effusion seen. Aorta: Normal aortic root. IVC: Dilated inferior vena cava with poor inspiratory collapse consistent with elevated right atrial pressures. Conclusions Normal left ventricular cavity size. Normal left ventricular wall thickness. Reduced left ventricular cavity size. Mild to moderate left ventricular systolic dysfunction. Ejection fraction is visually estimated at 40-45 %. Abnormal Diastolic Function. Moderate enlargement of right ventricle. Moderate to severe right ventricular hypokinesis. There is moderate enlargement of left atrium. There is moderate enlargement of right atrium. Mild mitral valve regurgitation. The regurgitation jet is eccentrically directed which may underestimate the severity of mitral regurgitation. Mild aortic stenosis. Trace aortic valve regurgitation. Estimated peak PA systolic pressure 53 mmHg. There is mild to moderate tricuspid regurgitation. Normal pericardium with no significant pericardial effusion. Left pleural effusion seen. Electronically Signed By: Justin Murphy 29-Dec-2016 22:18:41 -0700 JUANITA RONQUILLO Jan 15, 2017 12:18
[2017-01-16] VITALS (14 sets, daily range): BP systolic 80–111; BP diastolic 51–68; PULSE 71–105; RESP 16–18
[2017-01-16] MEDS: LEVOTHYROXINE 150 MCG TAB PO SCH (06:06)
[2017-01-16 07:19] LABS: ABNORMAL IP MESSAGE 1; BASOPHILS % 0.6 % (0.0-2.0); EOSINOPHILS % 0.6 % (0.0-7.0); HEMATOCRIT 31.5 % (42.0-52.0); HEMOGLOBIN 9.5 g/dl (14.0-18.0); LYMPHOCYTES # 1.6 10^3/ul (0.8-2.9); LYMPHOCYTES % 22.3 % (15.0-51.0); MEAN CORPUSCULAR HEMOGLOBIN 27.9 pg (29.0-33.0); MEAN CORPUSCULAR HGB CONC 30.2 g/dl (32.0-37.0); MEAN CORPUSCULAR VOLUME 92.6 fl (82.0-101.0); MONOCYTES % 13.9 % (0.0-11.0); NEUTROPHIL # 4.4 10^3/ul (1.6-7.5); NEUTROPHILS % 62.2 % (39.0-77.0); PLATELET COUNT 86 10^3/UL (140-415); POSITIVE DIFF @See below; RED CELL DISTRIBUTION WIDTH 19.3 % (11.5-14.5)
[2017-01-16 07:47] LABS: ALBUMIN 2.9 g/dl (3.3-4.9); ALBUMIN/GLOBULIN RATIO 0.58; BILIRUBIN,INDIRECT 0.7 mg/dl (0-1.1); BILIRUBIN,TOTAL 0.7 mg/dl (0.2-1.3); CALCIUM 7.9 mg/dl (8.4-10.2); CREATININE 0.67 mg/dl (0.61-1.24); MAGNESIUM 1.5 mg/dl (1.7-2.5); POTASSIUM 3.8 mmol/L (3.5-5.1); TOTAL PROTEIN 7.9 g/dl (6.1-8.1)
[2017-01-16] MEDS: METOPROLOL 25 MG TAB PO SCH ×2 (09:00→20:45)
[2017-01-16] MEDS: SALMETEROL/FLUTICASONE 250/50 INHA INH SCH ×2 (09:05→20:46)
[2017-01-16] MEDS: FERROUS SULFATE (EC) 325 MG TAB PO SCH (09:06)
[2017-01-16] MEDS: SPIRONOLACTONE 25 MG TAB PO SCH ×2 (09:06→20:46)
[2017-01-16] MEDS: FAMOTIDINE 20 MG TAB PO SCH (09:06)
[2017-01-16] MEDS: APIXABAN 5 MG TABLET PO SCH ×2 (09:06→20:46)
[2017-01-16] MEDS: DOCUSATE SODIUM 100 MG CAP PO SCH (09:06)
[2017-01-16] MEDS: METOLAZONE 2.5 MG TAB PO SCH (09:09)
[2017-01-16] MEDS ORDERED: POTASSIUM CHLORIDE (SR) 20 MEQ TAB PO STA (10:20)
--- NOTE | 2017-01-16 10:24 | PN ---
Date/Time of Note Date/Time of Note DATE: 01/16/17 TIME: 10:18 Assessment/Plan VTE Prophylaxis VTE Prophylaxis Intervention: other (On Eliquis) Lines/Catheters IV [facility] Type (from [facility]): Saline Lock Urinary Cath still in place: No Assessment/Plan Assessment/Plan 81-year-old male; 1. Recurrent CHF exacerbation, cardiomyopathy with both systolic dysfunction EF 40% and diastolic dysfunction. 2D echocardiogram already done a couple weeks ago, on previous admission. Improving symptoms on multiple diuretics including Aldactone, Bumex, metolazone. Replete magnesium today. Cardiac enzymes negative 2. Atrial fibrillation, rate controlled on this admission, continue outpatient medications. Also on Eliquis for stroke prophylaxis, to be continued. Patient had some mild hemoptysis yesterday, however he does need anticoagulation given his current atrial fibrillation and need for stroke prevention. No major bleeding. Hemoglobin stable. Replete K and mag while being diuresed. 3. Hypertension: Continue current medications as tolerated. 4. Hypothyroidism: continue levothyroxine 5. Moderate pulmonary fibrosis at least, oxygen dependent with chronic hypoxemia. Continue Advair and nebulizer treatment and oxygen supplement. Patient has chronic elevation of his bicarbonate on chemistry, will check an ABG for monitoring. Prophylaxis: Pepcid for GI prophylaxis, patient on full anticoagulation with Eliquis in setting of A. fib Disposition: Hopefully discharge planning for tomorrow if patient stable and adequately diuresing. May not need metolazone at the time of discharge. Subjective 24 Hr Interval Summary Free Text/Dictation Patient doing well this morning, status post a Bumex drip yesterday, significant decrease of his anasarca. Will be transitioned to oral Bumex along with Aldactone. Also getting metolazone. PT eval pending today, discharge planning hopefully in the next 24 hours. Exam/Review of Systems Vital Signs Vitals Vital Signs Date Time Temp Pulse Resp B/P Pulse Ox O2 Delivery O2 Flow Rate FiO2 01/16/17 08:23 3.0 01/16/17 08:15 105 108/66 01/16/17 07:52 97.6 18 96 01/15/17 20:07 Nasal Cannula Intake and Output 01/15/17 01/15/17 01/16/17 15:00 23:00 07:00 Intake Total 660 ml 600 ml Output Total 1200 ml Balance -540 ml 600 ml Exam Constitutional: alert, frail, oriented Respiratory: diminished breath sounds (Chronic decreased breath sounds bilaterally), normal air movement Cardiovascular: irregular rhythm (Atrial fibrillation rate controlled) Gastrointestinal: non-tender, soft Extremities: normal pulses, other (Improved anasarca, water blisters healing.) 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: TELEGRAPHIC TYPEWRITER INSTALLER II-XII intact, nl mental status, nl speech, other (Some generalized weakness chronic) Results Result Diagram: 01/16/1734 01/16/17 0634 Results 24 hrs Laboratory Tests Test 01/15/17 10:24 01/16/17 06:34 Magnesium Level 1.7 1.5 L Creatine Kinase < 20 L Creatine Kinase Index Creatinine Kinase MB (Mass) 1.29 Troponin I < 0.012 Thyroid Stimulating Hormone (TSH) 2.440 Free Thyroxine 1.25 Digoxin Level 0.6 L White Blood Count 7.0 Red Blood Count 3.40 L Hemoglobin 9.5 L Hematocrit 31.5 L Mean Corpuscular Volume 92.6 Mean Corpuscular Hemoglobin 27.9 L Mean Corpuscular Hemoglobin Concent 30.2 L Red Cell Distribution Width 19.3 H Platelet Count 86 L Mean Platelet Volume 13.0 H Neutrophils % 62.2 Lymphocytes % 22.3 Monocytes % 13.9 H Eosinophils % 0.6 Basophils % 0.6 Nucleated Red Blood Cells % 0.0 Neutrophils # 4.4 Lymphocytes # 1.6 Monocytes # 1.0 H Eosinophils # 0.0 Basophils # 0.0 Nucleated Red Blood Cells # 0.0 Sodium Level 138 Potassium Level 3.8 Chloride Level 89 L Carbon Dioxide Level 44 *H Anion Gap 13 Blood Urea Nitrogen 15 Creatinine 0.67 Glucose Level 84 Calcium Level 7.9 L Phosphorus Level 4.0 Total Bilirubin 0.7 Direct Bilirubin 0.00 Indirect Bilirubin 0.7 Aspartate Amino Transf (AST/SGOT) 22 Alanine Aminotransferase (ALT/SGPT) 14 Alkaline Phosphatase 162 H Total Protein 7.9 Albumin 2.9 L Globulin 5.00 H Albumin/Globulin Ratio 0.58 Medications Medications Current Medications Apixaban (Eliquis) 5 mg BID PO Last administered on 01/16/17 09:06; Admin Dose 5 MG; Start 01/15/17 at 09:00 Digoxin (Digoxin) 0.125 mg DAILY@13 PO Last administered on 01/15/17 12:12; Admin Dose 0.125 MG; Start 01/15/17 at 13:00 Docusate Sodium (Colace) 100 mg DAILY PO Last administered on 01/16/17 09:06; Admin Dose 100 MG; Start 01/15/17 at 09:00 Famotidine (Pepcid) 20 mg DAILY PO Last administered on 01/16/17 09:06; Admin Dose 20 MG; Start 01/15/17 at 09:00 Ferrous Sulfate (Ferrous Sulfate (Ec)) 325 mg DAILY PO Last administered on 09:06; Admin Dose 325 MG; Start 01/15/17 at 09:00 Fluticasone Propionate (Flonase 0.05% Nasal) 1 spray DAILY PRN NASAL PRN; Start 01/15/17 at 09:00 Metoprolol Tartrate (Lopressor) 25 mg Q12 PO ; Start 01/15/17 at 09:00 Salmeterol Xinafoate/ Fluticasone (Advair 250/50 Diskus) 1 inh BID INH Last administered on 01/16/17 09:05; Admin Dose 1 INH; Start 01/15/17 at 10:00 Spironolactone (Aldactone) 25 mg BID PO Last administered on 01/16/17 09:06; Admin Dose 25 MG; Start 01/15/17 at 09:00 Lorazepam (Ativan) 0.5 mg Q6H PRN IV ANXIETY; Start 01/15/17 at 09:00 Ondansetron HCl (Zofran Inj) 4 mg Q6H PRN IV NAUSEA AND/OR VOMITING; Start at 09:00 Metolazone (Zaroxolyn) 2.5 mg DAILY PO Last administered on 01/16/17 09:09; Admin Dose 2.5 MG; Start 01/15/17 at 10:00 Nitroglycerin (Nitroglycerin (Sl Tab) 0.4 Mg) 1 tab Q5M PRN SL CHEST PAIN; Start 01/15/17 at 09:00 Acetaminophen (Tylenol Tab) 650 mg Q6H PRN PO PAIN LEVEL 1-3 OR FEVER; Start at 09:00 Docusate Sodium (Colace) 100 mg Q12H PRN PO CONSTIPATION; Start 01/15/17 at 09: 00 Magnesium Hydroxide (Milk Of Mag) 30 ml DAILY PRN PO CONSTIPATION; Start at 09:00 Bisacodyl 10 mg 10 mg DAILY PRN [place] CONSTIPATION; Start 01/15/17 at 09:00 Magnesium Sulfate/ Sodium Chloride (Magnesium Sulfate/NS) 106 ml @ 35.333 mls/ hr ONCE ONCE IVPB ; Start 01/16/17 at 10:30; Stop 01/16/17 at 13:29 JUANITA RONQUILLO Jan 16, 2017 10:24
[2017-01-16] MEDS ORDERED: MAGNESIUM SULFATE 3 GM in SOD CHLORIDE 0.9% 100 ML IVPB ONE (10:30)
[2017-01-16 11:15] LABS: AADO2 Arterial 78.7 mmHg (7.0-24.0); Allen Test ACCEPTAB; Arterial Base Excess 19.2 mmol/L (-3.0-3); Arterial COHb 1.9 % (0.0-3.0); Arterial HCO3 48.1 mmol/L (22.0-26.0); Arterial MetHb 0.2 % (0.0-1.5); Arterial Total Hemglobin 13.1 g/dl (12.0-18.0); MODE NASAL CANNULA
[2017-01-16] MEDS: BUMETANIDE 1 MG TAB PO SCH ×2 (11:49→17:28)
[2017-01-16] MEDS: DIGOXIN 0.125 MG TAB PO SCH (12:12)
[2017-01-17] VITALS (10 sets, daily range): BP systolic 90–100; BP diastolic 53–64; PULSE 81–99; RESP 16–18
[2017-01-17] MEDS: BUMETANIDE 1 MG TAB PO SCH ×2 (06:21→17:34)
[2017-01-17 07:04] LABS: ABNORMAL IP MESSAGE 1; BASOPHILS % 0.4 % (0.0-2.0); EOSINOPHILS % 0.5 % (0.0-7.0); HEMATOCRIT 30.5 % (42.0-52.0); HEMOGLOBIN 9.3 g/dl (14.0-18.0); LYMPHOCYTES # 1.5 10^3/ul (0.8-2.9); LYMPHOCYTES % 19.4 % (15.0-51.0); MEAN CORPUSCULAR HEMOGLOBIN 28.1 pg (29.0-33.0); MEAN CORPUSCULAR HGB CONC 30.5 g/dl (32.0-37.0); MEAN CORPUSCULAR VOLUME 92.1 fl (82.0-101.0); MEAN PLATELET VOLUME 13.9 fl (7.4-10.4); MONOCYTES % 12.9 % (0.0-11.0); NEUTROPHILS % 66.2 % (39.0-77.0); PLATELET COUNT 70 10^3/UL (140-415); POSITIVE DIFF @See below; RED BLOOD COUNT 3.31 10^6/ul (4.70-6.10); RED CELL DISTRIBUTION WIDTH 19.1 % (11.5-14.5); WHITE BLOOD COUNT 7.9 10^3/ul (4.8-10.8)
[2017-01-17 07:23] LABS: ALBUMIN 2.9 g/dl (3.3-4.9); ALBUMIN/GLOBULIN RATIO 0.56; BILIRUBIN,INDIRECT 0.7 mg/dl (0-1.1); BILIRUBIN,TOTAL 0.7 mg/dl (0.2-1.3); CREATININE 0.69 mg/dl (0.61-1.24); POTASSIUM 4.1 mmol/L (3.5-5.1)
[2017-01-17 07:38] LABS: MAGNESIUM 1.8 mg/dl (1.7-2.5); PHOSPHORUS 3.9 mg/dl (2.5-4.9)
[2017-01-17] MEDS: LEVOTHYROXINE 150 MCG TAB PO SCH (07:48)
[2017-01-17] MEDS: METOPROLOL 25 MG TAB PO SCH (08:21)
[2017-01-17] MEDS: METOLAZONE 2.5 MG TAB PO SCH (09:00)
[2017-01-17] MEDS: SPIRONOLACTONE 25 MG TAB PO SCH (09:00)
[2017-01-17] MEDS: SALMETEROL/FLUTICASONE 250/50 INHA INH SCH (09:44)
[2017-01-17] MEDS: FERROUS SULFATE (EC) 325 MG TAB PO SCH (09:44)
[2017-01-17] MEDS: FAMOTIDINE 20 MG TAB PO SCH (09:44)
[2017-01-17] MEDS: APIXABAN 5 MG TABLET PO SCH (09:45)
[2017-01-17] MEDS: DOCUSATE SODIUM 100 MG CAP PO SCH (09:45)
[2017-01-17] MEDS: DIGOXIN 0.125 MG TAB PO SCH (13:51)
[2017-01-17] MEDS ORDERED: FURO-110 PO (15:15)
--- NOTE | 2017-01-17 16:59 | DS ---
Date/Time of Note Date/Time of Note DATE: 01/17/17 TIME: 16:48 Discharge Summary Admission/Discharge Info Admit Date/Time Jan 15, 2017 at 05:08 Discharge Date/Time January 17, 2017 Discharge Diagnosis 1. Acute on chronic hypoxic and hypercapnic respiratory distress secondary to recurrent CHF exacerbation on chronic pulmonary fibrosis Patient status post diuresis, will increase home Lasix to 20 twice daily Patient has known cardiomyopathy with both systolic dysfunction EF 40% and diastolic dysfunction. 2D echocardiogram already done a couple weeks ago, on previous admission. Patient already has home O2, home health has been ordered Cardiac enzymes negative Patient has chronic CO2 retention with chronic metabolic alkalosis for compensation 2. Atrial fibrillation, rate controlled on this admission, continue outpatient medications. Also on Eliquis for stroke prophylaxis, to be continued. Patient had some mild hemoptysis yesterday likely secondary to chronic O2 via nasal cannula, he does need anticoagulation given his current atrial fibrillation and need for stroke prevention. No major bleeding. Hemoglobin stable. 3. Hypertension: Continue home meds 4. Hypothyroidism: continue levothyroxine 5. Pulmonary fibrosis with hypoxic and hypercapnic respiratory failure-oxygen dependent Continue Advair and nebulizer treatment and oxygen supplement. Patient has chronic CO2 retention with chronic metabolic alkalosis for compensation Patient Condition: Fair Hospital Course Patient is an 81-year-old male with a history of both systolic and diastolic congestive heart failure, also atrial fibrillation, chronic hypoxemia with known moderate pulmonary fibrosis, likely right heart failure who again presented to the emergency department with complaint of worsening lower extremity edema, paroxysmal nocturnal dyspnea and orthopnea for the past 3-4 days. Patient was diuresed with Bumex and metolazone but appears that his worsening respiratory distress is more secondary to his pulmonary fibrosis than pulmonary edema. Patient has significant CO2 retention with chronic metabolic alkalosis compensation. On arrival his chest x-ray did show pulmonary congestion need to continue to be short of breath after being diuresed. Case was discussed with case management and was felt the patient would ultimately be appropriate for palliative care. Patient's did not want to send patient to a snf and arrangements were made for home health for home safety evaluation. Patient was felt to be stable for DC, he does have home O2 already in place. On the day of discharge patient's vitals, labs and physical exam are stable. Patient's Lasix was increased from 20 daily to twice daily upon DC. Home Meds Active Scripts Furosemide* (Lasix*) 20 Mg Tablet, 20 MG PO BID, #60 TAB 1 Refill Prov:EDILBRODERICK 01/17/17 Metoprolol Tartrate* (Lopressor*) 25 Mg Tab, 25 MG PO Q12 for 30 Days, #60 TAB Prov:LAURA RICO MD 12/31/16 Digoxin* (Digitek*) 125 Mcg Tablet, 0.125 MG PO DAILY@13 for 30 Days, #30 TAB Prov:LAURA RICO MD 12/31/16 Apixaban* (Eliquis*) 5 Mg Tablet, 5 MG PO BID for 30 Days, #60 TAB Prov:LAURA RICO MD 12/31/16 Salmeterol Xinaf/Fluticasone* (Advair*) 250-50 Diskus Inhaler, 1 INH INH BID, # 1 3 Refills Prov:JUANITA RONQUILLO F 07/06/16 Reported Medications Spironolactone* (Aldactone*) 25 Mg Tablet, 25 MG PO BID, #60 TAB 12/28/16 Famotidine* (Famotidine*) 20 Mg Tablet, 20 MG PO DAILY, #30 TAB 10/27/16 Umeclidinium [place] (Incruse Ellipta) 62.5 Mcg Blst.w.dev, 62.5 MCG IH 1PUFF DAILY 10/27/16 Albuterol Sulfate* (Ventolin HFA*) 18 Gm Hfa.aer.ad, 2 PUFF INHALATION Q4H, #1 INHALER 10/27/16 Docusate Sodium* (Docusate Sodium*) 100 Mg Capsule, 100 MG PO DAILY, #30 CAP 07/02/16 Ferrous Sulfate* (Ferrous Sulfate*) 325 Mg Tabec, 325 MG PO DAILY, TAB 07/02/16 Fluticasone Propionate* (Fluticasone Propionate* Nasal) 50 Mcg/[place] - 16 Gm [place].susp, 1 SPRAY NASAL DAILY Y for PRN, #1 BOTTLE TO EACH NOSTRIL 01/14/16 Levothyroxine Sodium* (Levothyroxine Sodium*) 150 Mcg Tablet, 150 MCG PO BEFORE BREAKFAST, #30 TAB 01/14/16 Discontinued Scripts Furosemide (Lasix) 20 Mg Tab, 20 MG PO DAILY for 30 Days, #30 TAB Prov:LAURA RICO MD 12/31/16 Follow-up Plan Follow-up with PCP in 1 week and with home health Primary Care Provider Tremayne Alejandro Time spent on discharge: > 30 minutes BRODERICK SOLO Jan 17, 2017 16:58
== END 2017-01-17 19:24 | disposition home or self-care (01) | DRG 291 ==
LOC: E/R 23:13 → MS4 01-15 05:08
PROVIDERS: ADMIT Internal Medicine; ATTEND Internal Medicine
PROC: 4A033R1 Measurement of Arterial Saturation, Peripheral, Percutaneous Approach (ICD-10-PCS; principal; 2017-01-16)
DX: I11.0 Hypertensive heart disease with heart failure (principal); J96.21 Acute and chronic respiratory failure with hypoxia; I42.9 Cardiomyopathy, unspecified; J96.22 Acute and chronic respiratory failure with hypercapnia; I50.43 Acute on chronic combined systolic (congestive) and diastolic (congestive) heart failure; J84.10 Pulmonary fibrosis, unspecified; E03.9 Hypothyroidism, unspecified; J44.9 Chronic obstructive pulmonary disease, unspecified; I48.91 Unspecified atrial fibrillation; Z87.891 Personal history of nicotine dependence; F10.10 Alcohol abuse, uncomplicated; D69.6 Thrombocytopenia, unspecified; Z99.81 Dependence on supplemental oxygen; I35.0 Nonrheumatic aortic (valve) stenosis
CPT/HCPCS: 36600; 71010; 80048; 80053; 80076; 80162; 82550; 82553; 82803; 83735; 83880; 84100; 84439; 84443; 84484; 85025; 85610; 85730; 93005; 96374; 97162; J3475

== ENCOUNTER 2017-01-30 13:30 | Inpatient (IN) | payer OTHER ==
[~2017-01-30] VITALS: Ht 180.3 cm; Wt 68.3 kg
[~2017-01-30 13:30] MED LIST changes: +FURO-110 PO; -LAS20 PO
[2017-01-30 14:02] LABS: BASOPHILS % 0.3 % (0.0-2.0); EOSINOPHILS % 0.3 % (0.0-7.0); HEMATOCRIT 30.2 % (42.0-52.0); HEMOGLOBIN 9.4 g/dl (14.0-18.0); LYMPHOCYTES # 1.6 10^3/ul (0.8-2.9); LYMPHOCYTES % 17.9 % (15.0-51.0); MEAN CORPUSCULAR HEMOGLOBIN 29.1 pg (29.0-33.0); MEAN CORPUSCULAR HGB CONC 31.1 g/dl (32.0-37.0); MEAN CORPUSCULAR VOLUME 93.5 fl (82.0-101.0); MEAN PLATELET VOLUME 12.2 fl (7.4-10.4); MONOCYTE # 1.4 10^3/ul (0.3-0.9); MONOCYTES % 15.2 % (0.0-11.0); NEUTROPHILS % 65.6 % (39.0-77.0); PLATELET COUNT 111 10^3/UL (140-415); RED BLOOD COUNT 3.23 10^6/ul (4.70-6.10); WHITE BLOOD COUNT 8.9 10^3/ul (4.8-10.8)
[2017-01-30] MEDS ORDERED: BUME1TAB18 PO (14:07)
[2017-01-30] MEDS ORDERED: SPIR25TA PO (14:09)
[2017-01-30] MEDS ORDERED: FAMO20TA18 PO (14:09)
[2017-01-30] MEDS ORDERED: APIX5TAB PO (14:11)
[2017-01-30] MEDS ORDERED: DIGO125T19 PO (14:12)
[2017-01-30] MEDS ORDERED: ALBU18HF INHALATION (14:14)
[2017-01-30 14:24] LABS: INR 1.53; PARTIAL THROMBOPLASTIN TIME 35.3 Sec (25.0-35.0); PROTIME 18.5 Sec (12.2-14.2); PT RATIO 1.4
[2017-01-30 14:29] LABS: ALANINE AMINOTRANSFERASE 17 IU/L (13-69); ALBUMIN 2.9 g/dl (3.3-4.9); ALKALINE PHOSPHATASE 185 IU/L (42-121); ASPARTATE AMINO TRANSFERASE 25 IU/L (15-46); BILIRUBIN,INDIRECT 0.6 mg/dl (0-1.1); BILIRUBIN,TOTAL 0.6 mg/dl (0.2-1.3); BLOOD UREA NITROGEN 28 mg/dl (7-20); CALCIUM 8.2 mg/dl (8.4-10.2); CREATININE 0.59 mg/dl (0.61-1.24); GLUCOSE 91 mg/dl (70-220); TOTAL PROTEIN 8.7 g/dl (6.1-8.1)
--- NOTE | 2017-01-30 14:29 | RADRPT ---
PROCEDURE: XR Chest. CLINICAL INDICATION: Shortness of breath TECHNIQUE: Single frontal chest x-ray. COMPARISON: 11/14/2016 FINDINGS: Cardiomegaly with diffuse bilateral alveolar and interstitial infiltrates or edema is seen. . There are low lung volumes with mild bibasilar atelectasis and elevation of the left hemidiaphragm.. Ca lcific atherosclerosis of the aorta is present.. The osseous structures are intact. IMPRESSION: Cardiomegaly with diffuse bilateral interstitial and mild alveolar edema or infiltrates. Low lung volumes with bibasilar atelectasis.. RPTAT: GG .Charly Valladares MD, Date Time Electronically viewed and signed by .Charly Valladares MD, on 01/30/2017 14:29 .L/
[2017-01-30 14:42] LABS: SODIUM 138 mmol/L (135-144); TROPONIN-I < 0.012 ng/ml (0.00-0.12)
[2017-01-30 14:43] LABS: ANION GAP 12 (8-16); CARBON DIOXIDE 43 mmol/L (21-31); CHLORIDE 88 mmol/L (97-110)
[2017-01-30] MEDS ORDERED: ALBUTEROL 0.083% (NEB) 2.5 MG/3 ML AMP HHN STA (14:50)
[2017-01-30 15:09] LABS: AADO2 Arterial 62.1 mmHg (7.0-24.0); Allen Test ACCEPTAB; Arterial COHb 1.8 % (0.0-3.0); Arterial MetHb 0.2 % (0.0-1.5); Arterial Total Hemglobin 10.3 g/dl (12.0-18.0); MODE NASAL CANNULA
[2017-01-30] MEDS ORDERED: BUMETANIDE 1 MG INJ IV ONE (15:30)
--- NOTE | 2017-01-30 16:14 | ERA ---
ER Documentation Chief Complaint Date/Time DATE: 01/30/17 TIME: 16:13 Chief Complaint [id number], from home, c/o sudden onset sob HPI 81-year-old male with multiple medical problems including asthma presenting to the ER with shortness of breath that started today. His is also noted some leg swelling and worsening abdominal distention. No fever, chills, nausea , vomiting, diaphoresis, chest pain. Patient is not answering all questions consistently, however when he does answer, they are appropriate answers. He only complains of some shortness of breath at this time. ROS All systems reviewed and are negative except as per history of present illness. Medications Home Meds Active Scripts Metoprolol Tartrate* (Lopressor*) 25 Mg Tab, 25 MG PO Q12 for 30 Days, #60 TAB Prov:LAURA RICO MD 12/31/16 Salmeterol Xinaf/Fluticasone* (Advair*) 250-50 Diskus Inhaler, 1 INH INH BID, # 1 3 Refills Prov:JUANITA RONQUILLO 07/06/16 Reported Medications Albuterol Sulfate* (Ventolin HFA*) 18 Gm Hfa.aer.ad, 2 PUFF INHALATION Q6H Y for WHEEZING AND SOB, #1 INHALER 01/30/17 Digoxin* (Digox*) 125 Mcg Tablet, 0.125 MG PO DAILY, TAB 01/30/17 Apixaban* (Eliquis*) 5 Mg Tablet, 5 MG PO BID, TAB 01/30/17 Spironolactone* (Aldactone*) 25 Mg Tablet, 25 MG PO BID, #60 TAB 01/30/17 Famotidine* (Famotidine*) 20 Mg Tablet, 20 MG PO DAILY, #30 TAB 01/30/17 Bumetanide* (Bumetanide*) 1 Mg Tablet, 1 MG PO DAILY, TAB 01/30/17 Umeclidinium Atkinson (Incruse Ellipta) 62.5 Mcg Blst.w.dev, 62.5 MCG IH 1PUFF DAILY 10/27/16 Albuterol Sulfate* (Ventolin HFA*) 18 Gm Hfa.aer.ad, 2 PUFF INHALATION Q4H, #1 INHALER 10/27/16 Docusate Sodium* (Docusate Sodium*) 100 Mg Capsule, 100 MG PO DAILY, #30 CAP 1/28/17 Ferrous Sulfate* (Ferrous Sulfate*) 325 Mg Tabec, 325 MG PO DAILY, TAB 07/02/16 Levothyroxine Sodium* (Levothyroxine Sodium*) 150 Mcg Tablet, 150 MCG PO BEFORE BREAKFAST, #30 TAB 01/14/16 Discontinued Reported Medications Spironolactone* (Aldactone*) 25 Mg Tablet, 25 MG PO BID, #60 TAB 12/28/16 Famotidine* (Famotidine*) 20 Mg Tablet, 20 MG PO DAILY, #30 TAB 10/27/16 Fluticasone Propionate* (Fluticasone Propionate* Nasal) 50 Mcg/Wylie - 16 Gm Wylie.susp, 1 SPRAY NASAL DAILY Y for PRN, #1 BOTTLE TO EACH NOSTRIL 01/14/16 Discontinued Scripts Furosemide* (Lasix*) 20 Mg Tablet, 20 MG PO BID, #60 TAB 1 Refill Prov:BRODERICK SOLO 01/17/17 Digoxin* (Digitek*) 125 Mcg Tablet, 0.125 MG PO DAILY@13 for 30 Days, #30 TAB Prov:LAURA RICO MD 12/31/16 Apixaban* (Eliquis*) 5 Mg Tablet, 5 MG PO BID for 30 Days, #60 TAB Prov:LAURA RICO MD 12/31/16 Allergies Allergies: Coded Allergies: No Known Allergy (Unverified , 01/30/17) PMhx/Soc History of Surgery: Yes (hernia repair) Anesthesia Reaction: No Hx 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 Disorder: No Hx Respiratory Disorders: Yes (asthma, bronchitis, pulmonary edema) Hx Cardiac Disorders: Yes (cad,chf, aortic value stenosis, mitral value stenosis) Hx Psychiatric Problems: No Hx Miscellaneous Medical Probl: Yes (thyroid) Hx Alcohol Use: Yes (quit 1992) Hx Substance Use: No Hx Tobacco Use: No Smoking Status: Former smoker FmHx Family History: No coronary disease Physical Exam Vitals Vital Signs Date Time Temp Pulse Resp B/P Pulse Ox O2 Delivery O2 Flow Rate FiO2 01/30/17 16:04 77 19 81/61 100 BIPAP 01/30/17 15:29 81 96 30 01/30/17 14:27 82 16 102/67 95 Nasal Cannula 2.0 01/30/17 14:01 Nasal Cannula 3.0 01/30/17 13:30 97.9 83 20 88/63 94 Physical Exam Const: Chronically ill-appearing, appears slightly short of breath, nontoxic Head: Atraumatic Eyes: Normal Conjunctiva ENT: Normal External Ears, Nose and Mouth. Posterior oropharynx normal Neck: Full range of motion..~ No meningismus.no JVD Resp: Bilateral crackles to mid lungs, No wheezing Cardio: Regular rate and rhythm, Systolic murmur Abd: Soft, Mildly distended with diffuse discomfort with palpation, no rebound or guarding. Normal bowel sounds Skin: Right anterior chest wall with old bruising Back: No midline or flank tenderness Ext: Bilateral 2+ lower extremity edema with blisters and dressings in place Neur: Awake and alert Psych: Normal Mood and Affect Result Diagram: 01/30/17 1345 01/30/17 1345 Results 24 hrs Laboratory Tests Test 01/30/17 13:45 01/30/17 14:41 White Blood Count 8.910^3/ul Red Blood Count 3.2310^6/ul Hemoglobin 9.4g/dl Hematocrit 30.2% Mean Corpuscular Volume 93.5fl Mean Corpuscular Hemoglobin 29.1pg Mean Corpuscular Hemoglobin Concent 31.1g/dl Red Cell Distribution Width 19.0% Platelet Count 88466^3/UL Mean Platelet Volume 12.2fl Neutrophils % 65.6% Lymphocytes % 17.9% Monocytes % 15.2% Eosinophils % 0.3% Basophils % 0.3% Nucleated Red Blood Cells % 0.0/100WBC Neutrophils # (Manual) 5.810^3/ul Lymphocytes # 1.610^3/ul Monocytes # 1.410^3/ul Eosinophils # 0.010^3/ul Basophils # 0.010^3/ul Nucleated Red Blood Cells # 0.010^3/ul Prothrombin Time 18.5Sec Prothrombin Time Ratio 1.4 INR International Normalized Ratio 1.53 Activated Partial Thromboplast Time 35.3Sec Sodium Level 138mmol/L Potassium Level 5.0mmol/L Chloride Level 88mmol/L Carbon Dioxide Level 43mmol/L Anion Gap 12 Blood Urea Nitrogen 28mg/dl Creatinine 0.59mg/dl Glucose Level 91mg/dl Calcium Level 8.2mg/dl Total Bilirubin 0.6mg/dl Direct Bilirubin 0.00mg/dl Indirect Bilirubin 0.6mg/dl Aspartate Amino Transf (AST/SGOT) 25IU/L Alanine Aminotransferase (ALT/SGPT) 17IU/L Alkaline Phosphatase 185IU/L Troponin I < 0.012ng/ml Total Protein 8.7g/dl Albumin 2.9g/dl Globulin 5.80g/dl Albumin/Globulin Ratio 0.50 Blood Gas Specimen Source Blood arterial Arterial Blood Date Drawn 01/30/2017 3:00:00 PM Arterial Blood pH (Temp corrected) 7.421 Arterial Blood pCO2 (Temp correct) 67.7mmhg Arterial Blood pO2 (Temp corrected) 57.7mmHG Arterial Blood HCO3 43.0mmol/L Arterial Blood Base Excess 16.0mmol/L Arterial Blood Oxygen Saturation 89.8mmHG Juarez Test ACCEPTAB Arterial Blood Gas Puncture Site Left Radial Arterial Blood Carboxyhemoglobin 1.8% Arterial Blood Methemoglobin 0.2% Blood Gas A-a O2 Differential 62.1mmHg Oxyhemoglobin Percent 88.0% Total Hemoglobin 10.3g/dl Blood Gas Temperature 37.0C Blood Gas Modality NASAL CANNULA FiO2 28.0% Blood Gas Critical Value Read Back DR. SUGGS Blood Gas Notified Whom Clifford Blood Gas Notified Time 01/30/2017 3:09:31 PM Current Medications Medications (Trade) Dose Ordered Sig/Jose Daniel Route PRN Reason Start Time Stop Time Status Last Admin Dose Admin Albuterol (Proventil 0.083% (Neb)) 5 mg ONCE STAT HHN 01/30/17 14:50 01/30/17 14:51 DC Bumetanide (Bumex) 1 mg NOW ONCE IV 01/30/17 15:30 01/30/17 15:31 DC 01/30/17 15:54 Procedures/MDM EMERGENT LABS AND DIAGNOSTIC STUDIES: Lab Results above were reviewed and interpreted by me. CBC: Anemia, thrombocytopenia CMP: Elevated CO2, BUN ABG shows normal pH, elevated CO2, likely chronic and hypoxemia Troponin within normal limits 12-lead EKG was interpreted by Molly Suggs MD: Atrial fibrillation at 86 bpm Normal axis Normal intervals Anterior nonspecific T-wave abnormality,No acute ST or T wave changes suggestive of acute ischemia or STEMI. Radiology Results as interpreted by Radiology below were reviewed by Harley Suggs MD: Chest x-ray: IMPRESSION: Cardiomegaly with diffuse bilateral interstitial and mild alveolar edema or infiltrates. Low lung volumes with bibasilar atelectasis.. .Charly Valladares MD, MD Date Time Electronically viewed and signed by .Charly Valladares MD, MD on 01/30/2017 14:29 Initial Nursing notes reviewed. Previous Medical Records requested via the Electronic Health Record. EMERGENCY DEPARTMENT COURSE / MEDICAL DECISION MAKING: Patient is presenting with most likely a CHF exacerbation. Presentation is less concerning for asthma exacerbation. It seems the patient has been here multiple times in the past for same symptoms. I have a lower suspicion for acute coronary syndrome, pulmonary embolism, pneumothorax, or pneumonia, however these remain on the differential. Chest x-ray and exam are consistent with fluid overload. Patient was treated with Bumex 1 mg IV. Nitro was not given given his borderline hypotension. I spoke with , who is very familiar with the patient and agreed to admission to telemetry for diuresis. Critical Care Time: 35 minutes Treatments/Evaluations: Close monitoring and treatment of unstable vital signs, cardiorespiratory, and neurologic status, while maintaining tight balance of fluid, respiratory, and cardiac interventions. This time includes discussing the case with the patient and the patients family. This time does not include all procedures stated elsewhere in this record. This time also includes reviewing old records, labs and radiological studies. This time includes examining and re-examining the patient. Additionally, this time also includes arranging care with admitting and consulting physicians. Departure Diagnosis: Primary Impression: Acute exacerbation of CHF (congestive heart failure) Qualified Code: I50.9 - Acute on chronic congestive heart failure, unspecified congestive heart failure type Condition: Serious GARRETT SUGGS MD Jan 30, 2017 16:14
[2017-01-30] MEDS ORDERED: ACETAMINOPHEN 325 MG TAB PO PRN ×2 (16:30→19:00)
[2017-01-30] MEDS ORDERED: ALBUMIN HUMAN 25% 100 ML IV ONE (16:30)
[2017-01-30] MEDS ORDERED: ONDANSETRON 4 MG INJ IV PRN ×2 (16:30→19:00)
--- NOTE | 2017-01-30 18:38 | HP ---
Date/Time of Note Date/Time of Note DATE: 01/30/17 TIME: 18:31 Assessment/Plan VTE Prophylaxis VTE Prophylaxis Intervention: other (On Eliquis) Assessment/Plan Assessment/Plan 81-year-old male; 1. Recurrent CHF exacerbation, cardiomyopathy with both systolic dysfunction EF 40% and diastolic dysfunction. Multiple admissions over the past couple of months 2D echocardiogram already done a 1 month ago, on previous admission. Continue Aldactone, Bumex drip, metolazone be added if needed for effusion diuresis. Replete electrolytes as needed. Rule out acute coronary syndrome by checking 2 more sets of cardiac enzymes. 2. Atrial fibrillation/ Atrial flutter rate controlled, continue outpatient medications. Also on Eliquis for stroke prophylaxis, to be continued. Hemoglobin stable. Replete K and mag while being diuresed as needed. 3. Hypertension: Continue current medications as tolerated. 4. Hypothyroidism: continue levothyroxine 5. Moderate pulmonary fibrosis at least, oxygen dependent with chronic hypoxemia. Continue Advair and nebulizer treatment and oxygen supplement. Patient has chronic elevation of his bicarbonate on chemistry, ABG checked in the ER with compensated acid-base. Prophylaxis: Pepcid for GI prophylaxis, patient on full anticoagulation with Eliquis in setting of A. fib/A flutter Disposition: Bumex drip for diuresis, metolazone as needed, patient needs outpatient management and better monitoring, he has been readmitted in the hospital more or less every week at this point for some form of volume overload. HPI/ROS Admit Date/Time Admit Date/Time Hx of Present Illness Chief complaint: Respiratory distress, lower extremity edema. History of presenting illness: This is a 81-year-old male, unfortunately with end-stage pulmonary fibrosis, congestive heart failure, multiple episodes of volume overload and inpatient diuresis at least weekly now at different hospitals, paroxysmal atrial flutter, chronic hypoxemia oxygen dependent, chronic metabolic alkalosis, who was brought into the emergency department by family with reported respiratory distress. Patient actually today does not look as bad as usual when he comes in volume overloaded. He does have some shortness of breath and pulmonary edema on x-ray , has lower extremity edema with actually fluid weeping of his skin. He was just recently discharged from another hospital where he was admitted with volume overload and was diuresed. He was discharged on Bumex. Patient is being readmitted again with volume overload needing additional diuresis. He seems to be only responding to Bumex with addition of metolazone and also Aldactone. He will be put on a Bumex drip with additional metolazone, continue his Aldactone. I had a discussion with the family, they are aware that the patient is becoming more difficult to treat and mostly requiring IV diuretics for effective diuresis and multiple episodes of exacerbation of his congestive heart failure when outpatient on oral diuretics. Patient needs much closer follow-up with his primary care physician or any outpatient physician at least on a weekly basis for titration of his diuretics and monitoring of his fluid retention. ROS Respiratory: other (Dyspnea on exertion), shortness of breath Cardiovascular: edema, orthopenea, paroxysmal nocturnal dyspnea Gastrointestinal: no complaints Genitourinary: no complaints Musculoskeletal: no complaints Skin: no complaints Neurologic: no complaints PMH/Family/Social Past Medical History Pulmonary fibrosis Congestive heart failure, systolic and diastolic function, ejection fraction around 40% Multiple episodes of CHF exacerbation and anasarca Chronic hypoxemia oxygen dependent 2-3 L nasal cannula Moderate aortic stenosis Hypothyroidism Past Surgical History Status post enucleation of right eye, 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 Family History Significant Family History: no pertinent family hx Social History Alcohol Use: none Smoking Status: Former smoker Drug Use: none Exam/Review of Systems Vital Signs Vitals Vital Signs Date Time Temp Pulse Resp B/P Pulse Ox O2 Delivery O2 Flow Rate FiO2 01/30/17 17:20 95 2.0 01/30/17 16:04 77 19 81/61 BIPAP 01/30/17 15:29 30 01/30/17 13:30 97.9 Exam Constitutional: alert, frail, oriented Respiratory: crackles/rales (Scattered bilaterally, some of it chronic), diminished breath sounds (Bilateral bases), other (Oxygen dependent 2-3 L nasal cannula) Cardiovascular: irregular rhythm (Atrial flutter controlled) Gastrointestinal: non-tender, soft Musculoskeletal: nl extremities to inspection Extremities: normal pulses, other (+2-3 edema diffuse) 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: TRUANT OFFICER II-XII intact, nl mental status, nl speech, other ( Generalized weakness) Labs Result Diagram: 01/30/17 1345 01/30/17 1345 Medications Medications Home medications: Please refer to admission medication reconciliation Procedures Procedures PROCEDURE: XR Chest. CLINICAL INDICATION: Shortness of breath TECHNIQUE: Single frontal chest x-ray. COMPARISON: 11/14/2016 FINDINGS: Cardiomegaly with diffuse bilateral alveolar and interstitial infiltrates or edema is seen. . There are low lung volumes with mild bibasilar atelectasis and elevation of the left hemidiaphragm.. Calcific atherosclerosis of the aorta is present.. The osseous structures are intact. IMPRESSION: Cardiomegaly with diffuse bilateral interstitial and mild alveolar edema or infiltrates. Low lung volumes with bibasilar atelectasis.. RPTAT: GG .Charly Valladares MD, MD Date Time Electronically viewed and signed by .hCarly Valladares MD, MD on 01/30/2017 14:29 JUANITA RONQUILLO Jan 30, 2017 18:38
[2017-01-30 18:51] VITALS: BP 91/60; PULSE 86; RESP 16
[2017-01-30 18:53] VITALS: Ht 180.3 cm; Wt 68.3 kg
[2017-01-30] MEDS ORDERED: BUMETANIDE 6 MG in DEXTROSE 5% 36 ML IV ONE (19:00)
[2017-01-30] MEDS ORDERED: morphine 2 MG INJ IV PRN (19:00)
[2017-01-30] MEDS ORDERED: DOCUSATE SODIUM 100 MG CAP PO PRN (19:00)
[2017-01-30] MEDS ORDERED: HYDROCODONE/APAP (5/325) TAB PO PRN (19:00)
[2017-01-30] MEDS ORDERED: NACL 0.9% 3 ML SYG IV SCH (19:00)
[2017-01-30] MEDS ORDERED: MAGNESIUM HYDROXIDE 30ML CUP PO PRN (19:00)
[2017-01-30] MEDS ORDERED: BISACODYL 10 MG SUPP PR PRN (19:00)
[2017-01-30] MEDS ORDERED: ALBUTEROL 18 GM INHALER INH PRN (19:30)
[2017-01-30 20:19] VITALS: BP 124/75; RESP 18
[2017-01-30 20:22] VITALS: PULSE 80
[2017-01-30] MEDS: SPIRONOLACTONE 25 MG TAB PO SCH (21:00)
[2017-01-30] MEDS: METOPROLOL 25 MG TAB PO SCH (21:00)
[2017-01-30] MEDS: SALMETEROL/FLUTICASONE 250/50 INHA INH SCH (21:40)
[2017-01-30] MEDS: ALBUTEROL 18 GM INHALER INH SCH ×2 (21:40→23:41)
[2017-01-30] MEDS: APIXABAN 5 MG TABLET PO SCH (21:41)
[2017-01-31] VITALS (11 sets, daily range): BP systolic 77–97; BP diastolic 52–63; PULSE 73–105; RESP 16–20
[2017-01-31] MEDS: ALBUTEROL 18 GM INHALER INH SCH ×5 (04:11→19:38)
[2017-01-31] MEDS: PANTOPRAZOLE (EC) 40 MG TAB PO SCH (05:47)
[2017-01-31] MEDS: LEVOTHYROXINE 150 MCG TAB PO SCH (06:43)
[2017-01-31 08:35] LABS: BASOPHIL # 0.1 10^3/ul (0.0-0.1); BASOPHILS % 0.6 % (0.0-2.0); EOSINOPHILS # 0.1 10^3/ul (0.0-0.5); EOSINOPHILS % 0.8 % (0.0-7.0); HEMATOCRIT 27.9 % (42.0-52.0); HEMOGLOBIN 8.6 g/dl (14.0-18.0); LYMPHOCYTES # 1.2 10^3/ul (0.8-2.9); LYMPHOCYTES % 15.2 % (15.0-51.0); MEAN CORPUSCULAR HGB CONC 30.8 g/dl (32.0-37.0); MEAN CORPUSCULAR VOLUME 93.9 fl (82.0-101.0); MEAN PLATELET VOLUME 13.1 fl (7.4-10.4); MONOCYTE # 1.1 10^3/ul (0.3-0.9); MONOCYTES % 14.3 % (0.0-11.0); NEUTROPHILS % 68.6 % (39.0-77.0); PLATELET COUNT 109 10^3/UL (140-415); RED BLOOD COUNT 2.97 10^6/ul (4.70-6.10); RED CELL DISTRIBUTION WIDTH 18.8 % (11.5-14.5); WHITE BLOOD COUNT 7.7 10^3/ul (4.8-10.8)
[2017-01-31 08:41] LABS: ALANINE AMINOTRANSFERASE 19 IU/L (13-69); ALBUMIN 2.8 g/dl (3.3-4.9); ALBUMIN/GLOBULIN RATIO 0.56; ALKALINE PHOSPHATASE 156 IU/L (42-121); ASPARTATE AMINO TRANSFERASE 20 IU/L (15-46); BILIRUBIN,INDIRECT 0.7 mg/dl (0-1.1); BILIRUBIN,TOTAL 0.7 mg/dl (0.2-1.3); BLOOD UREA NITROGEN 24 mg/dl (7-20); CALCIUM 7.8 mg/dl (8.4-10.2); CHLORIDE 87 mmol/L (97-110); CREATININE 0.74 mg/dl (0.61-1.24); GLUCOSE 88 mg/dl (70-220); HDL CHOLESTEROL 20 mg/dl (31-75); MAGNESIUM 1.9 mg/dl (1.7-2.5); POTASSIUM 3.9 mmol/L (3.5-5.1); SODIUM 139 mmol/L (135-144); TOTAL PROTEIN 7.8 g/dl (6.1-8.1); TRIGLYCERIDES 50 mg/dl (0-149)
[2017-01-31 08:47] LABS: CHOLESTEROL < 50 mg/dl (100-200)
[2017-01-31 08:52] LABS: ANION GAP 10 (8-16); CARBON DIOXIDE 46 mmol/L (21-31)
[2017-01-31] MEDS: SPIRONOLACTONE 25 MG TAB PO SCH ×2 (09:00→20:29)
[2017-01-31] MEDS: METOPROLOL 25 MG TAB PO SCH ×2 (09:00→20:33)
[2017-01-31] MEDS ORDERED: METOLAZONE 2.5 MG TAB PO SCH (09:00)
[2017-01-31] MEDS: FAMOTIDINE 20 MG TAB PO SCH (10:51)
[2017-01-31] MEDS: DOCUSATE SODIUM 100 MG CAP PO SCH (10:51)
[2017-01-31] MEDS: SALMETEROL/FLUTICASONE 250/50 INHA INH SCH ×2 (10:51→20:30)
[2017-01-31] MEDS: APIXABAN 5 MG TABLET PO SCH ×2 (10:52→20:29)
[2017-01-31] MEDS: FERROUS SULFATE (EC) 325 MG TAB PO SCH (10:52)
[2017-01-31] MEDS: DIGOXIN 0.125 MG TAB PO SCH (13:00)
--- NOTE | 2017-01-31 15:58 | PN ---
Date/Time of Note Date/Time of Note DATE: 01/31/17 TIME: 15:38 Assessment/Plan VTE Prophylaxis VTE Prophylaxis Intervention: other (on Eliquis ) Lines/Catheters IV [facility]from [facility] Saline Lock Urinary Cath still in place: No Assessment/Plan Assessment/Plan 81-year-old male; 1. Recurrent CHF exacerbation, cardiomyopathy with both systolic dysfunction EF 40% and diastolic dysfunction. Multiple admissions over the past couple of months 2D echocardiogram already done a 1 month ago, on previous admission. Continue Aldactone and Bumex 1 mg po bid, diuresis is getting a little harder at times due to hypotension. Replete electrolytes as needed. 2. Atrial fibrillation/ Atrial flutter rate controlled, continue outpatient medications. Also on Eliquis for stroke prophylaxis, to be continued. Hemoglobin stable, 8.6 today. 3. Hypertension: Continue current medications as tolerated. Patient with episodes of hypotension, most blood pressure medication has been held today. 4. Hypothyroidism: continue levothyroxine 5. Moderate pulmonary fibrosis at least, oxygen dependent with chronic hypoxemia. Continue Advair and nebulizer treatment and oxygen supplement. 6. Chronic metabolic alkalosis, with known chronic hypoxemia and known moderate to severe pulmonary fibrosis, patient well compensated acid-base on ABG. Prophylaxis: Pepcid for GI prophylaxis, patient on full anticoagulation with Eliquis in setting of A. fib/A flutter Disposition: Bumex for diuresis along with Aldactone, this is as long as patient 's blood pressure is tolerating. Will give 1 dose of albumin today. Patient needs better outpatient management and monitoring, he has been readmitted in a hospital more or less every week at this point for some form of volume overload. Subjective 24 Hr Interval Summary Free Text/Dictation Patient feels better, he is sitting on the side of the bed, his lower extremity edema is much improved after a max drip, metolazone and Aldactone. His blood pressure is noted to be on the low side, he will receive a dose of albumin today, his Bumex will be resumed as p.o. bid Her blood pressure meds and diuretics have been held today so far Exam/Review of Systems Vital Signs Vitals Vital Signs Date Time Temp Pulse Resp B/P Pulse Ox O2 Delivery O2 Flow Rate FiO2 01/31/17 12:18 98 01/31/17 11:59 97.9 16 77/52 98 01/31/17 08:00 Nasal Cannula 4.0 01/30/17 15:29 30 Intake and Output 01/30/17 01/30/17 01/31/17 15:00 23:00 07:00 Intake Total 120 ml Output Total 400 ml Balance -280 ml Exam Constitutional: alert, frail, oriented, other (Elderly) Respiratory: normal air movement, other (Chronic hypoxemia, oxygen dependent.) Cardiovascular: irregular rhythm (Controlled A. fib) Gastrointestinal: non-tender, soft Musculoskeletal: swelling (Much improved, patient may benefit from lymphedema wraps.) Extremities: normal pulses 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: NURSERY MANAGER II-XII intact, nl mental status, nl speech, other ( Generalized weakness, improved) Results Result Diagram: 01/31/1772601/31/17 07 Results 24 hrs Laboratory Tests Test 01/31/17 07:27 White Blood Count 7.7 Red Blood Count 2.97 L Hemoglobin 8.6 L Hematocrit 27.9 L Mean Corpuscular Volume 93.9 Mean Corpuscular Hemoglobin 29.0 Mean Corpuscular Hemoglobin Concent 30.8 L Red Cell Distribution Width 18.8 H Platelet Count 109 L Mean Platelet Volume 13.1 H Neutrophils % 68.6 Lymphocytes % 15.2 Monocytes % 14.3 H Eosinophils % 0.8 Basophils % 0.6 Nucleated Red Blood Cells % 0.0 Neutrophils # (Manual) 5.3 Lymphocytes # 1.2 Monocytes # 1.1 H Eosinophils # 0.1 Basophils # 0.1 Nucleated Red Blood Cells # 0.0 Sodium Level 139 Potassium Level 3.9 Chloride Level 87 L Carbon Dioxide Level 46 *H Anion Gap 10 Blood Urea Nitrogen 24 H Creatinine 0.74 Glucose Level 88 Calcium Level 7.8 L Magnesium Level 1.9 Total Bilirubin 0.7 Direct Bilirubin 0.00 Indirect Bilirubin 0.7 Aspartate Amino Transf (AST/SGOT) 20 Alanine Aminotransferase (ALT/SGPT) 19 Alkaline Phosphatase 156 H Total Protein 7.8 Albumin 2.8 L Globulin 5.00 H Albumin/Globulin Ratio 0.56 Triglycerides Level 50 Cholesterol Level < 50 L LDL Cholesterol, Calculated HDL Cholesterol 20 L Cholesterol/HDL Ratio Thyroid Stimulating Hormone (TSH) 1.180 Medications Medications Current Medications Albuterol (Ventolin Hfa) 2 puff Q4H INH Last administered on 01/31/17t 11:01; Admin Dose 2 PUFF; Start 01/30/17 at 19:00 Apixaban (Eliquis) 5 mg BID PO Last administered on 01/31/17 10:52; Admin Dose 5 MG; Start 01/30/17 at 21:00 Digoxin (Digoxin) 0.125 mg DAILY@13 PO Last administered on 01/31/17 13:00; Admin Dose 0.125 MG; Start 01/31/17 at 13:00 Docusate Sodium (Colace) 100 mg DAILY PO Last administered on 01/31/17 10:51; Admin Dose 100 MG; Start 01/31/17 at 09:00 Famotidine (Pepcid) 20 mg DAILY PO Last administered on 01/31/17 10:51; Admin Dose 20 MG; Start 01/31/17 at 09:00 Ferrous Sulfate (Ferrous Sulfate (Ec)) 325 mg DAILY PO Last administered on 10:52; Admin Dose 325 MG; Start 01/31/17 at 09:00 Metoprolol Tartrate (Lopressor) 25 mg Q12 PO ; Start 01/30/17 at 21:00 Salmeterol Xinafoate/ Fluticasone (Advair 250/50 Diskus) 1 inh BID INH Last administered on 01/31/17 10:51; Admin Dose 1 INH; Start 01/30/17 at 21:00 Spironolactone (Aldactone) 25 mg BID PO ; Start 01/30/17 at 21:00 Ondansetron HCl (Zofran Inj) 4 mg Q6H PRN IV NAUSEA AND/OR VOMITING; Start at 19:00 Acetaminophen (Tylenol Tab) 650 mg Q6H PRN PO PAIN LEVEL 1-3 OR FEVER; Start at 19:00 Acetaminophen/ Hydrocodone Bitart (Bryan (5/325)) 1 tab Q6H PRN PO PAIN LEVEL 4 -6; Start 01/30/17 at 19:00 Morphine Sulfate (morphine) 2 mg Q4H PRN IV PAIN LEVEL 7-10; Start 01/30/17 at 19:00 Docusate Sodium (Colace) 100 mg Q12H PRN PO CONSTIPATION; Start 01/30/17 at 19: 00 Magnesium Hydroxide (Milk Of Mag) 30 ml DAILY PRN PO CONSTIPATION; Start at 19:00 Bisacodyl (Dulcolax Supp) 10 mg DAILY PRN SC CONSTIPATION; Start 01/30/17 at 19 :00 Pantoprazole (Protonix Tab) 40 mg DAILY@06 PO Last administered on 01/31/17t 05 :47; Admin Dose 40 MG; Start 01/31/17 at 06:00 JUANITA RONQUILLO Jan 31, 2017 15:54
[2017-01-31] MEDS ORDERED: ALBUMIN HUMAN 25% 100 ML IV ONE (16:30)
[2017-01-31] MEDS: BUMETANIDE 1 MG TAB PO SCH (17:37)
[2017-01-31 17:51] LABS: CREATINE KINASE < 20 IU/L (23-200)
[2017-01-31 18:04] LABS: CK-MB 0.77 ng/ml (0.0-2.4); TROPONIN-I < 0.012 ng/ml (0.00-0.12)
[2017-02-01] VITALS (11 sets, daily range): BP systolic 88–116; BP diastolic 46–63; PULSE 89–106; RESP 16–19
[2017-02-01] MEDS: ALBUTEROL 18 GM INHALER INH SCH ×5 (00:31→15:07)
[2017-02-01] MEDS: PANTOPRAZOLE (EC) 40 MG TAB PO SCH (06:04)
[2017-02-01] MEDS: LEVOTHYROXINE 150 MCG TAB PO SCH (06:04)
[2017-02-01] MEDS: BUMETANIDE 1 MG TAB PO SCH (06:05)
[2017-02-01 08:08] LABS: ABNORMAL IP MESSAGE 1; BASOPHILS % 0.4 % (0.0-2.0); EOSINOPHILS # 0.1 10^3/ul (0.0-0.5); EOSINOPHILS % 0.7 % (0.0-7.0); HEMATOCRIT 27.7 % (42.0-52.0); HEMOGLOBIN 8.4 g/dl (14.0-18.0); LYMPHOCYTES # 1.7 10^3/ul (0.8-2.9); MEAN CORPUSCULAR HEMOGLOBIN 28.1 pg (29.0-33.0); MEAN CORPUSCULAR HGB CONC 30.3 g/dl (32.0-37.0); MEAN CORPUSCULAR VOLUME 92.6 fl (82.0-101.0); MEAN PLATELET VOLUME 13.9 fl (7.4-10.4); MONOCYTE # 1.1 10^3/ul (0.3-0.9); MONOCYTES % 15.1 % (0.0-11.0); NEUTROPHILS % 60.4 % (39.0-77.0); PLATELET COUNT 77 10^3/UL (140-415); POSITIVE DIFF @See below; RED BLOOD COUNT 2.99 10^6/ul (4.70-6.10); RED CELL DISTRIBUTION WIDTH 19.1 % (11.5-14.5); WHITE BLOOD COUNT 7.3 10^3/ul (4.8-10.8)
[2017-02-01 08:43] LABS: MAGNESIUM 1.9 mg/dl (1.7-2.5); PHOSPHORUS 3.7 mg/dl (2.5-4.9)
[2017-02-01 08:48] LABS: ALBUMIN 3.1 g/dl (3.3-4.9); ALBUMIN/GLOBULIN RATIO 0.62; BILIRUBIN,INDIRECT 0.8 mg/dl (0-1.1); BILIRUBIN,TOTAL 0.8 mg/dl (0.2-1.3); CALCIUM 7.8 mg/dl (8.4-10.2); CREATININE 0.76 mg/dl (0.61-1.24); POTASSIUM 4.2 mmol/L (3.5-5.1); TOTAL PROTEIN 8.1 g/dl (6.1-8.1)
[2017-02-01] MEDS: METOPROLOL 25 MG TAB PO SCH (09:00)
[2017-02-01] MEDS: SALMETEROL/FLUTICASONE 250/50 INHA INH SCH (09:28)
[2017-02-01] MEDS: FERROUS SULFATE (EC) 325 MG TAB PO SCH (09:29)
[2017-02-01] MEDS: APIXABAN 5 MG TABLET PO SCH (09:29)
[2017-02-01] MEDS: FAMOTIDINE 20 MG TAB PO SCH (09:29)
[2017-02-01] MEDS: SPIRONOLACTONE 25 MG TAB PO SCH (09:30)
[2017-02-01] MEDS: DOCUSATE SODIUM 100 MG CAP PO SCH (09:30)
[2017-02-01] MEDS: DIGOXIN 0.125 MG TAB PO SCH (12:33)
--- NOTE | 2017-02-01 14:59 | PN ---
Date/Time of Note Date/Time of Note DATE: 02/01/17 TIME: 14:41 Assessment/Plan VTE Prophylaxis VTE Prophylaxis Intervention: SCD's Lines/Catheters IV Catheter Type (from [facility]): Saline Lock Urinary Cath still in place: No Assessment/Plan Assessment/Plan 81-year-old male; 1. Recurrent CHF exacerbation, cardiomyopathy with both systolic dysfunction EF 40% and diastolic dysfunction. Multiple admissions over the past couple of months 2D echocardiogram already done a 1 month ago, on previous admission. Continue Aldactone and Bumex 1 mg po bid, diuresis is getting a little harder at times due to hypotension. Replete electrolytes as needed. 2. Atrial fibrillation/ Atrial flutter rate controlled, continue outpatient medications. Also on Eliquis for stroke prophylaxis, to be continued. Hemoglobin stable, 8.6 today. 3. Hypertension: Continue current medications as tolerated. Patient with episodes of hypotension, most blood pressure medication has been held today. 4. Hypothyroidism: continue levothyroxine 5. Moderate pulmonary fibrosis at least, oxygen dependent with chronic hypoxemia. Continue Advair and nebulizer treatment and oxygen supplement. 6. Chronic metabolic alkalosis, with known chronic hypoxemia and known moderate to severe pulmonary fibrosis, patient well compensated acid-base on ABG. Prophylaxis: Pepcid for GI prophylaxis, patient on full anticoagulation with Eliquis in setting of A. fib/A flutter Disposition: Bumex for diuresis along with Aldactone, this is as long as patient 's blood pressure is tolerating. Patient needs better outpatient management and monitoring, he has been readmitted in a hospital more or less every week at this point for some form of volume overload. He has signed up with home hospice today. Subjective 24 Hr Interval Summary Free Text/Dictation Patient is stable, blood pressure is improved but we had to remove most of the blood pressure medication. He has diuresed well. He will be discharged home with hospice today. It is best has been at the bedside and discussed with the patient, patient has been signed up with hospice, however he still full code Exam/Review of Systems Vital Signs Vitals Vital Signs Date Time Temp Pulse Resp B/P Pulse Ox O2 Delivery O2 Flow Rate FiO2 02/01/17 12:16 102 02/01/17 11:55 98.3 16 97/59 96 02/01/17 08:02 Nasal Cannula 2.0 01/30/17 15:29 30 Intake and Output 8/29/17 8/29/17 8/30/17 15:00 23:00 07:00 Intake Total 600 ml Output Total 750 ml Balance -150 ml Exam Constitutional: alert, frail, oriented, other (Much less anasarca) Respiratory: diminished breath sounds (Scattered bilaterally), normal air movement Cardiovascular: irregular rhythm (Atrial fibrillation), nl pulses Gastrointestinal: non-tender, soft Musculoskeletal: other (Much improved anasarca and swelling) Extremities: normal pulses, other (Much decrease edema) 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: [employer] II-XII intact, nl mental status, nl speech, other ( Generalized weakness) Results Result Diagram: 02/01/17 0716 02/01/17 0716 Results 24 hrs Laboratory Tests Test 01/31/17 17:11 02/01/17 07:16 Creatine Kinase < 20 L Creatine Kinase Index Creatinine Kinase MB (Mass) 0.77 Troponin I < 0.012 White Blood Count 7.3 Red Blood Count 2.99 L Hemoglobin 8.4 L Hematocrit 27.7 L Mean Corpuscular Volume 92.6 Mean Corpuscular Hemoglobin 28.1 L Mean Corpuscular Hemoglobin Concent 30.3 L Red Cell Distribution Width 19.1 H Platelet Count 77 #L Mean Platelet Volume 13.9 H Neutrophils % 60.4 Lymphocytes % 23.0 Monocytes % 15.1 H Eosinophils % 0.7 Basophils % 0.4 Nucleated Red Blood Cells % 0.0 Neutrophils # (Manual) 4.4 Lymphocytes # 1.7 Monocytes # 1.1 H Eosinophils # 0.1 Basophils # 0.0 Nucleated Red Blood Cells # 0.0 Sodium Level 141 Potassium Level 4.2 Chloride Level 87 L Carbon Dioxide Level 45 *H Anion Gap 13 Blood Urea Nitrogen 22 H Creatinine 0.76 Glucose Level 88 Calcium Level 7.8 L Phosphorus Level 3.7 Magnesium Level 1.9 Total Bilirubin 0.8 Direct Bilirubin 0.00 Indirect Bilirubin 0.8 Aspartate Amino Transf (AST/SGOT) 19 Alanine Aminotransferase (ALT/SGPT) 20 Alkaline Phosphatase 150 H Total Protein 8.1 Albumin 3.1 L Globulin 5.00 H Albumin/Globulin Ratio 0.62 Medications Medications Current Medications Albuterol (Ventolin Hfa) 2 puff Q4H INH Last administered on 02/01/17t 11:00; Admin Dose 2 PUFF; Start 01/30/17 at 19:00 Apixaban (Eliquis) 5 mg BID PO Last administered on 02/01/17 09:29; Admin Dose 5 MG; Start 01/30/17 at 21:00 Digoxin (Digoxin) 0.125 mg DAILY@13 PO Last administered on 02/01/17 12:33; Admin Dose 0.125 MG; Start 01/31/17 at 13:00 Docusate Sodium (Colace) 100 mg DAILY PO Last administered on 02/01/17 09:30; Admin Dose 100 MG; Start 01/31/17 at 09:00 Famotidine (Pepcid) 20 mg DAILY PO Last administered on 02/01/17 09:29; Admin Dose 20 MG; Start 01/31/17 at 09:00 Ferrous Sulfate (Ferrous Sulfate (Ec)) 325 mg DAILY PO Last administered on 09:29; Admin Dose 325 MG; Start 01/31/17 at 09:00 Metoprolol Tartrate (Lopressor) 25 mg Q12 PO ; Start 01/30/17 at 21:00 Salmeterol Xinafoate/ Fluticasone (Advair 250/50 Diskus) 1 inh BID INH Last administered on 02/01/17 09:28; Admin Dose 1 INH; Start 01/30/17 at 21:00 Spironolactone (Aldactone) 25 mg BID PO Last administered on 02/01/17 09:30; Admin Dose 25 MG; Start 01/30/17 at 21:00 Ondansetron HCl (Zofran Inj) 4 mg Q6H PRN IV NAUSEA AND/OR VOMITING; Start at 19:00 Acetaminophen (Tylenol Tab) 650 mg Q6H PRN PO PAIN LEVEL 1-3 OR FEVER; Start at 19:00 Acetaminophen/ Hydrocodone Bitart ([place] (5/325)) 1 tab Q6H PRN PO PAIN LEVEL 4 -6; Start 01/30/17 at 19:00 Morphine Sulfate (morphine) 2 mg Q4H PRN IV PAIN LEVEL 7-10; Start 01/30/17 at 19:00 Docusate Sodium (Colace) 100 mg Q12H PRN PO CONSTIPATION; Start 01/30/17 at 19: 00 Magnesium Hydroxide (Milk Of Mag) 30 ml DAILY PRN PO CONSTIPATION; Start at 19:00 Bisacodyl (Dulcolax Supp) 10 mg DAILY PRN [place] CONSTIPATION; Start 01/30/17 at 19 :00 Pantoprazole (Protonix Tab) 40 mg DAILY@06 PO Last administered on 02/01/17 06 :04; Admin Dose 40 MG; Start 01/31/17 at 06:00 JUANITA RONQUILLO Feb 01, 2017 14:54
--- NOTE | 2017-02-01 15:39 | PDOCDIS ---
Discharge Instructions CONDITION Patient Condition: Stable HOME CARE INSTRUCTIONS: Diet Instructions: 2gm Na ACTIVITY: Activity Restrictions: Slowly Increase Activity FOLLOW UP/APPOINTMENTS Follow-up Plan Follow-up with primary care physician within 1 week Follow-up with home hospice upon discharge today Follow-up with cardiology as an outpatient as needed in the next 2 weeks JUANITA RONQUILLO Feb 01, 2017 15:39
[2017-02-01] MEDS ORDERED: BUME1TAB18 PO (15:40)
== END 2017-02-01 18:41 | disposition hospice, home (50) | DRG 292 ==
LOC: E/R 13:30 → MS4 16:15
PROVIDERS: ADMIT Internal Medicine; ATTEND Internal Medicine
PROC: 4A03XR1 Measurement of Arterial Saturation, Peripheral, External Approach (ICD-10-PCS; principal; 2017-01-30)
DX: I11.0 Hypertensive heart disease with heart failure (principal); I48.92 Unspecified atrial flutter; E87.3 Alkalosis; I42.9 Cardiomyopathy, unspecified; J84.10 Pulmonary fibrosis, unspecified; I50.43 Acute on chronic combined systolic (congestive) and diastolic (congestive) heart failure; J45.909 Unspecified asthma, uncomplicated; I25.10 Atherosclerotic heart disease of native coronary artery without angina pectoris; I08.0 Rheumatic disorders of both mitral and aortic valves; Z87.891 Personal history of nicotine dependence; I48.91 Unspecified atrial fibrillation; E03.9 Hypothyroidism, unspecified; Z99.81 Dependence on supplemental oxygen; R09.02 Hypoxemia
CPT/HCPCS: 36415; 36600; 71010; 80053; 80061; 82550; 82553; 82803; 83735; 84100; 84443; 84484; 85025; 85610; 85730; 93005; 94660; 96374; 96375; P9047